=== PATIENT | female | born 1990 | race Caucasian/White ===

== ENCOUNTER 2022-11-11 17:26 | Emergency (ER) | payer BC, SELFPAY ==
[2022-11-11 17:29] VITALS: BP 138/90; PULSE 72; RESP 18; TEMP 36.3; O2SAT 100; BMI 51.7
--- NOTE | 2022-11-11 17:48 | CT_ITS ---
INDICATION: left flank pain EXAMINATION: CT ABDOMEN AND PELVIS WITHOUT CONTRAST - CT Abdomen And Pelvis W/O Contrast Injection TECHNIQUE: Helically acquired images were obtained of the abdomen and pelvis without oral or IV contrast. A radiation dose optimization technique was used for this scan. IV Contrast dosage and agent: None. Oral contrast: None. RADIATION DOSAGE (If Supplied By Facility): CTDIvol = ( 24.00 ) mGy, DLP = ( 1289.21 ) mGycm COMPARISON: None. FINDINGS: LOWER CHEST: Lung bases are clear. No cardiomegaly or pericardial effusion. There are no significant coronary vascular calcifications. LIVER: The liver has normal configuration and density given the limitation of noncontrast exam. No focal mass. GALLBLADDER AND BILIARY TREE: No calcified gallstones. No gallbladder distension or wall edema. No intra- or extrahepatic biliary ductal dilation. PANCREAS: No focal cystic or solid mass. SPLEEN: Normal size without focal cystic or solid mass. ADRENAL GLANDS: No nodules. KIDNEYS AND URETERS: Normal renal size and position. No hydronephrosis. PERITONEUM: No ascites or free air. No other fluid collection. BOWEL: Normal appendix is identified. No stomach or bowel distension. No focal inflammatory change. LYMPH NODES: No enlarged mesenteric or retroperitoneal lymph nodes. VESSELS: Aorta is non-dilated. URINARY BLADDER: Unremarkable. REPRODUCTIVE ORGANS: No pelvic masses. ABDOMINAL WALL: No discrete abdominal or pelvic wall hernia. BONES: No lytic or blastic abnormality. CT/Abdomen/Pelvis without Cont IMPRESSION: 1. No masses bowel obstruction abscess free fluid or free air. Normal appendix noted. No evidence diverticulitis. 2. No renal calcifications nor evidence of obstructive uropathy. 3. No evidence cholelithiasis. Electronically Signed: Skinny Montelongo MD at 19:28 EDT ,
--- NOTE | 2022-11-11 17:49 | EX.ED.DYSGE1 ---
HPI History of Present Illness Chief Complaint: Back Detail of Chief Complaint: Left flank pain Informant: patient Narrative Narrative: Patient presents to the emergency department complaint of left flank pain that initially started around 2 AM. Patient states she woke up around 2 AM and noted significant discomfort there. Patient denies vomiting or nausea. She has had similar pain in the past when she had a kidney stone. Pain does not wrap around the front at all. She denies injuring her back recently. She did move a week ago and she does do lifting at work. She denies any pain radiating down her legs. She denies dysuria or urgency. She has had some increase in urination but she states that she thought it might be a kidney stone so she started drinking more fluids. She denies hematuria. Patient not had any fevers. PFSH PFSH Home Medications cyclobenzaprine 10 mg tablet 10 mg PO TID PRN Muscle Spasm #20 TABLETS 11/11/22 [Rx Last Taken Unknown] hydrocodone-acetaminophen 5-325mg 5mg-325mg 1 tab PO Q4H PRN PRN Pain 2 days #10 TABLETS 11/11/22 [Rx Last Taken Unknown] naproxen 500 mg tablet 500 mg PO BID #14 tabs 11/11/22 [Rx Last Taken Unknown] Allergy/AdvReac Type Severity Reaction Status Date / Time vancomycin Allergy Hives Verified 11/11/22 17:37 azithromycin [From z pack] AdvReac Hives Verified 11/11/22 17:29 erythromycin base AdvReac Vomiting Verified 11/11/22 17:29 Social History Smoking Status: Former smoker ROS ROS ED Review of Systems ROS Unobtainable: other Constitutional Constitutional ED: Reports lethargy; Denies chills, fever(s), sweats or weight loss Eyes Eyes: Denies blurry vision, change in vision or diplopia ENT ENT ED: Denies rhinorrhea or sore throat Cardiovascular Cardiovascular: Denies chest pain, orthopnea or racing heartbeat Respiratory/Chest Respiratory/Chest: Denies cough, dyspnea, dyspnea on exertion, orthopnea or sputum Gastrointestinal Gastrointestinal: Denies abdominal pain, diarrhea, nausea or vomiting Genitourinary Genitourinary ED: Denies dysuria, hematuria or urinary frequency Musculoskeletal Musculoskeletal: Reports back pain; Denies arthralgias, myalgias or neck pain Integumentary Denies abscess, Abrasions or rash Neurologic Neurologic: Denies headache(s) or weakness Psychiatric Psychiatric: Denies anxiety, depression or suicidal thoughts Endocrine Endocrinology: Denies polydipsia, polyphagia or polyuria Hematologic/Lymphatic Hematologic/Lymphatic: Denies easy bleeding, easy bruising or lymphadenopathy Allergic/Immunologic Allergic/Immunologic ED: Denies mouth swelling, tongue swelling or urticaria EXAM Physical Exam Const Vital Signs: 11/11/22 17:29 11/11/22 19:40 Temperature 97.3 F L Temperature Source Temporal Pulse Rate 72 71 Respiratory Rate 18 17 Blood Pressure 138/90 H 145/76 H Blood Pressure Mean 106 99 Pulse Ox 100 100 Oxygen Delivery Method Room Air Room Air Positive well nourished and well developed General Appearance ED: well developed and NAD HEENT Reports TM's clear and moist mucous membranes normocephalic and atraumatic; Negative for trauma or tenderness Tympanic Membrane ED: Yes TM's clear Eyes PERRL and EOMs intact bilaterally General Eye ED: Negative for pale conjunctiva or scleral icterus Neck no lymphadenopathy, supple and no JVD General: Negative for tenderness Chest Wall inspection of chest normal and palpation of chest normal Chest: Negative for tenderness Resp normal respiratory effort and clear to auscultation bilaterally Effort and Inspection: Negative for respiratory distress or pain with movement Auscultation: Negative for rhonchi, wheezes or diminished lung sounds Cardio regular rate, regular rhythm, S1 normal heart sound, S2 normal heart sound and no murmurs Peripheral Pulses: pulses 2+ throughout GI normal to inspection, nondistended, normoactive bowel sounds, soft to palpation, non-tender, non-distended and no masses Back/Spine no CVA tenderness Back/Spine Narrative: Patient with tenderness over the left lumbar paraspinal musculature that seems to reproduce her pain. She also has CVA tenderness on the left. Negative straight leg raises. Deep tendon reflexes plus 2 out of 4 bilaterally at the patella Achilles. Patient has normal 5 extension. Extremity normal to inspection General Extremety ED: Negative for edema General Extremity: Negative for edema Neuro oriented x3, CN's II-XII intact bilaterally, no sensory deficits noted and gait normal Sensorium / Orientation: awake, alert, oriented to person, oriented to place and oriented to time Motor Exam: strength 5/5 throughout and strength abnormal Psych mental status grossly normal Skin no rashes or lesions noted and no wounds MDM MDM MDM Narrative Medical decision making narrative: Patient presents with left flank pain similar to when she had a kidney stone. In the differential would be musculoskeletal back pain versus UTI or kidney stone. IV line established on arrival. She was medicated with Toradol. CBC with differential obtained showed an elevated white count of 13.2 with hemoglobin of 13 and platelet count of 351. Chemistries were unremarkable. hCG was negative. Urinalysis was normal. CT flank obtained showed no acute disease process without evidence of urolithiasis. At this point I suspect likely musculoskeletal back pain. Patient will be given a prescription for Naprosyn and Flexeril and a few [place] for pain. Advised to follow-up with primary care physician locally within the next 3 to 5 days. Lab Data Attestation: I reviewed the patient's lab results. Labs: Laboratory Results - last 24 hr 11/11/22 11/11/22 11/11/22 17:59 17:59 17:59 WBC 13.2 H RBC 4.69 Hgb 13.0 Hct 41.5 MCV 88.5 MCH 27.7 MCHC 31.3 L RDW Std Deviation 42.6 RDW Coeff of Lilian 13.2 Plt Count 351 MPV 9.2 Immature Gran % (Auto) 1.400 H Neut % (Auto) 63.3 Lymph % (Auto) 28.5 [place] % (Auto) 5.0 Eos % (Auto) 1.1 Baso % (Auto) 0.7 Absolute Neuts (auto) 8.3 H Absolute Lymphs (auto) 3.76 Nucleated RBC % 0 Sodium 139 Potassium 3.7 Chloride 104 Carbon Dioxide 27.0 Anion Gap 8 BUN 10 Creatinine 0.75 Estim Creat Clear Calc 85.17 Est GFR (MDRD) Af Amer 114 Est GFR (MDRD) Non-Af 94 BUN/Creatinine Ratio 13.3 Glucose 83 Calcium 8.9 Serum , Qual NEGATIVE Urine Color Urine Clarity Urine pH Ur Specific [place] Urine Protein Urine Glucose (UA) Urine Ketones Urine Occult Blood Urine Nitrite Urine Bilirubin Urine Urobilinogen Ur Leukocyte Esterase Urine RBC Urine WBC Ur Squamous Epith Cells Ur Transition Epith Cell Urine Bacteria Urine Mucus 11/11/22 19:06 WBC RBC Hgb Hct MCV MCH MCHC RDW Std Deviation RDW Coeff of Lilian Plt Count MPV Immature Gran % (Auto) Neut % (Auto) Lymph % (Auto) [place] % (Auto) Eos % (Auto) Baso % (Auto) Absolute Neuts (auto) Absolute Lymphs (auto) Nucleated RBC % Sodium Potassium Chloride Carbon Dioxide Anion Gap BUN Creatinine Estim Creat Clear Calc Est GFR (MDRD) Af Amer Est GFR (MDRD) Non-Af BUN/Creatinine Ratio Glucose Calcium Serum , Qual Urine Color Yellow Urine Clarity Clear Urine pH 7.0 Ur Specific [place] 1.010 Urine Protein Negative Urine Glucose (UA) Normal Urine Ketones 15 H Urine Occult Blood Negative Urine Nitrite Negative Urine Bilirubin Negative Urine Urobilinogen Normal Ur Leukocyte Esterase 100 H Urine RBC 0 SEEN Urine WBC 0-5 SEEN Ur Squamous Epith Cells 0-5 SEEN Ur Transition Epith Cell 0 SEEN Urine Bacteria 0 SEEN Urine Mucus 0 SEEN Radiography Diagnostic Testing: Clinical Impression(s) from Imaging Studies Abdomen/Pelvis CT 11/11/22 17:48 IMPRESSION: 1. No masses bowel obstruction abscess free fluid or free air. Normal appendix noted. No evidence diverticulitis. 2. No renal calcifications nor evidence of obstructive uropathy. 3. No evidence cholelithiasis. Electronically Signed: Skinny Montelongo MD at 19:28 EDT , Discharge Plan Triage Chief Complaint: Back ED Provider: Bong Jonas Dx/Rx/DC Orders Clinical Impression: Back pain Instructions: ED Back Pain (Acute or Chronic) Prescriptions: New cyclobenzaprine [cyclobenzaprine] 10 mg tablet 10 mg PO TID PRN (Reason: Muscle Spasm) Qty: 20 0RF hydrocodone-acetaminophen [hydrocodone-acetaminophen] 5-325 mg tablet 1 tab PO Q4H PRN PRN (Reason: Pain) 2 Days Qty: 10 0RF naproxen 500 mg tablet 500 mg PO BID Qty: 14 0RF Primary Care Provider: TENISHA KHAN Referrals: TENISHA KHAN [Other] Dani Pascual DO [Med Staff - Clarification Operator] - 3-5 Days Disposition Disposition: Home, Self Care
[2022-11-11] MEDS: 0.9% Normal Saline 1,000 ML 150 ML IV (18:03)
[2022-11-11] MEDS: Ketorolac 30 MG/ML Syringe IV (18:03)
[2022-11-11 18:08] LABS: Absolute Lymphocyte Count 3.76 X10^3/uL (0.83-4.51); Absolute Neutrophil Count 8.3 X10^3/uL (2.0-7.7); Basophil# 0.09 X10^3/uL; Basophil% 0.7 % (0-1); Eosinophil# 0.15 X10^3/uL; Eosinophils% 1.1 % (0-5); Hematocrit 41.5 % (37-47); Lymphocyte # 3.76 X10^3/ul (0.83-4.51); Lymphocyte % 28.5 % (19-41); Mean Corp Hgb Conc 31.3 g/dL (32-36); Mean Corpuscular Hgb 27.7 pg (27.0-32.0); Mean Corpuscular Volume 88.5 fL (81-99); Mean Platelet Vol. 9.2 fl (6.2-12.0); Monocyte# 0.66 X10^3/uL; NRBC Flagged by Analyzer 0 % (0-5); Neutrophil # 8.34 X10^3/uL (2.7-7.7); Neutrophil % 63.3 % (47-70); Platelet Count 351 K/mm3 (150-450); RBC Distribution Width CV 13.2 % (11.6-14.6); RBC Distribution Width SD 42.6 fl (35.1-43.9); Red Blood Count 4.69 M/mm3 (4.2-5.4); White Blood Count 13.2 K/mm3 (4.4-11.0)
[2022-11-11 18:23] LABS: Internal QC Validated? YES +Cl - CLEAR BKGD; Pregnancy, Serum, hCG Quali. NEGATIVE Negative
[2022-11-11 18:25] LABS: Anion Gap 8 (5-15); BUN 10 mg/dL (7-18); BUN/Creat Ratio 13.3 RATIO (10-20); Calcium,Total 8.9 mg/dL (8.5-10.1); Chloride 104 mmol/L (98-107); Creatinine, Serum 0.75 mg/dL (0.55-1.02); EST Glomerular Filtration Rate 94 mL/min (>60); Est Glom Filt Rate - Afr Amer 114 mL/min (>60); Estimated Creatinine Clearance 85.17 ml/min; Glucose 83 mg/dL (74-106); Potassium 3.7 mmol/L (3.5-5.1); Sodium Level 139 mmol/L (136-145)
[2022-11-11 19:10] LABS: Bacteria 0 SEEN /hpf (None Seen); Mucous, Urine 0 SEEN /hpf (<or=2+); Red Blood Cells-Urine 0 SEEN /hpf (0-5)
[2022-11-11 19:12] LABS: Color, Urine Yellow (Yellow); Glucose, Dipstick Normal (Normal); Ketone-Dipstick 15 mg/dl (Negative); Leukocyte Esterase-Dipstick 100 /ul (Negative); Nitrite-Dipstick Negative (Negative); Occult Blood-Urine Negative /ul (Negative); Protein-Dipstick Negative (Negative); Urine Bilirubin Dipstick Negative (Negative); Urine Clarity Clear (Clear); Urine Urobilinogen Normal (Normal)
[2022-11-11 19:27] LABS: Squamous Epithelial Cells - UA 0-5 SEEN /hpf (5-10); Transitional Epithelial - Ur 0 SEEN /hpf (0-5); White Blood Cells 0-5 SEEN /hpf (0-5)
[2022-11-11 19:40] VITALS: BP 145/76; PULSE 71; RESP 17; O2SAT 100
[2022-11-11 20:15] VITALS: PULSE 68; RESP 18; O2SAT 100
== END 2022-11-11 20:54 | disposition home or self-care (01) ==
PROVIDERS: Emergency Provider Emergency Medicine; Visit Provider Emergency Medicine
DX: M54.9 Dorsalgia, unspecified (principal); R10.9 Unspecified abdominal pain; Z87.891 Personal history of nicotine dependence
CPT/HCPCS: 74176; 80048; 81001; 84703; 85025; 96361; 96374; 99282; J7030; A4216

== ENCOUNTER → 2023-10-21 | Outpatient (CLI) | payer BC, SELFPAY ==
[2023-10-21 09:34] LABS: Hematocrit 37.3 % (37-47); Hemoglobin 12.2 g/dL (12.0-15.0); Mean Corp Hgb Conc 32.7 g/dL (32-36); Mean Corpuscular Hgb 28.4 pg (27.0-32.0); Mean Corpuscular Volume 86.7 fL (81-99); Mean Platelet Vol. 9.2 fl (6.2-12.0); Platelet Count 349 K/mm3 (150-450); RBC Distribution Width CV 12.6 % (11.6-14.6); RBC Distribution Width SD 39.7 fl (35.1-43.9); White Blood Count 9.2 K/mm3 (4.4-11.0)
[2023-10-21 09:52] LABS: Hemoglobin A1c 5.1 % (3.8-5.6)
[2023-10-21 10:06] LABS: ALB/GLOB Ratio 0.8 RATIO (0.9-2.4); AST(SGOT) 17 U/L (15-37); Alanine Aminotransfer ALT/SGPT 26 U/L (13-56); Albumin, Serum 3.2 g/dL (3.2-5.0); Alkaline Phosphatase 70 U/L (45-117); Anion Gap 3 (5-15); BUN 9 mg/dL (7-18); BUN/Creat Ratio 15.3 RATIO (10-20); Calcium,Total 8.5 mg/dL (8.5-10.1); Chloride 108 mmol/L (98-107); Cholesterol 177 mg/dL (200); Creatinine, Serum 0.59 mg/dL (0.55-1.02); EST Glomerular Filtration Rate 125 mL/min (>60); Est Glom Filt Rate - Afr Amer 151 mL/min (>60); Globulin 3.8 g/dL (2.2-4.2); Glucose 110 mg/dL (74-106); High Density Lipoprotein 39 mg/dL; Potassium 3.9 mmol/L (3.5-5.1); Sodium Level 137 mmol/L (136-145); Triglycerides 64 mg/dL; Very Low Density Lipoprotein 13 mg/dL (5-40)
== END | disposition home or self-care (01) ==
LOC: LAB 08:58
DX: R53.83 Other fatigue (principal); Z79.899 Other long term (current) drug therapy
CPT/HCPCS: 36415; 80053; 80061; 83036; 84443; 85027

== ENCOUNTER 2024-04-03 09:09 | Emergency (ER) | payer BC, SELFPAY ==
[2024-04-03 09:11] VITALS: BP 134/78; PULSE 64; RESP 18; TEMP 36.6; O2SAT 97; BMI 46.3
[2024-04-03 09:43] LABS: Absolute Lymphocyte Count 2.33 X10^3/uL (0.83-4.51); Absolute Neutrophil Count 7.2 X10^3/uL (2.0-7.7); Basophil# 0.07 X10^3/uL; Basophil% 0.7 % (0-1); Eosinophil# 0.21 X10^3/uL; Hematocrit 41.1 % (37-47); Hemoglobin 13.7 g/dL (12.0-15.0); Lymphocyte # 2.33 X10^3/ul (0.83-4.51); Lymphocyte % 22.3 % (19-41); Mean Corp Hgb Conc 33.3 g/dL (32-36); Mean Corpuscular Hgb 29.2 pg (27.0-32.0); Mean Corpuscular Volume 87.6 fL (81-99); Mean Platelet Vol. 9.1 fl (6.2-12.0); Monocyte# 0.59 X10^3/uL; Monocyte% 5.7 % (0-10); NRBC Flagged by Analyzer 0 % (0-5); Neutrophil % 68.9 % (47-70); Platelet Count 373 K/mm3 (150-450); RBC Distribution Width CV 12.2 % (11.6-14.6); Red Blood Count 4.69 M/mm3 (4.2-5.4); White Blood Count 10.4 K/mm3 (4.4-11.0)
[2024-04-03 09:44] VITALS: BP 120/77; PULSE 82; RESP 24; TEMP 36.3; O2SAT 96
--- NOTE | 2024-04-03 09:51 | EDS_ITS ---
HPI HPI - Psych History of Present Illness Chief Complaint: Suicidal Informant: patient Onset/Context/Timing Onset: Days Context: Gradual Onset Timing: Continuous Current Severity: Moderate Maximum Severity: Moderate Associated Symptoms Associated Symptoms - Psych: Positive for Depressed and Suicidal Thoughts Specific plan (suicidal thought): Considering overdosing. Narrative Narrative: 33-year-old female history of bipolar disorder. States she has been more depressed the last 4 days. She had a prior history of cutting herself. She has not been doing that recently. She states she is having thoughts of overdosing on her medications and killing yourself. She has never attempted this before. She was hospitalized for her psychiatric illness 2 years ago. Prior similar symptoms: Yes Recent Illness/Hospitalization: No PFSH PFSH Medical History Anxiety Bipolar 1 disorder Depression Chronic headaches Home Medications ?Medication ?Instructions ?Recorded ?Last Taken ?Type clonazepam 1 mg tablet mg PO 05/04/23 Unknown History oxcarbazepine 600 mg tablet mg PO 05/04/23 Unknown History trazodone 100 mg tablet mg PO 05/04/23 Unknown History venlafaxine 75 mg capsule,extended mg PO 05/04/23 Unknown History release 24 hr ondansetron HCl 8 mg tablet 8 mg PO Q8H PRN nausea and 06/30/23 Unknown Rx vomiting #14 tabs benzonatate 200 mg capsule 200 mg PO TID PRN cough #14 caps 09/05/23 Unknown Rx methylprednisolone 4 mg tablets in See Rx Instructions PO PER PKG DIR 09/05/23 Unknown Rx a dose pack (Medrol (Lizandro)) #21 tabs Allergy/AdvReac Type Severity Reaction Status Date / Time vancomycin Allergy Hives Verified 04/03/24 09:11 azithromycin (From z pack) AdvReac Hives Verified 04/03/24 09:11 erythromycin base AdvReac Vomiting Verified 04/03/24 09:11 Family History Other Cancer Diabetes Heart disease Surgical History History of carpal tunnel release Social History Smoking Status: Former smoker ROS ROS ED ROS Narrative Denies recent illness. Constitutional Constitutional ED: Denies fever(s) Eyes Eyes: Denies blurry vision ENT ENT ED: Denies ear pain Cardiovascular Cardiovascular: Denies chest pain Respiratory/Chest Respiratory/Chest: Denies cough Gastrointestinal Gastrointestinal: Denies abdominal pain Genitourinary Genitourinary ED: Denies dysuria Musculoskeletal Musculoskeletal: Denies arthralgias Integumentary Denies abscess Neurologic Neurologic: Denies headache(s) Psychiatric Psychiatric: Reports anxiety, depression, suicidal ideation and suicidal thoughts Endocrine Endocrinology: Denies polydipsia Hematologic/Lymphatic Hematologic/Lymphatic: Denies easy bleeding Allergic/Immunologic Allergic/Immunologic ED: Denies mouth swelling EXAM Physical Exam Narrative Exam Narrative: 33-year-old female sitting upright in bed. Vital signs are stable afebrile. H EENT exam unremarkable. Pupils round react light extra motions are intact. No trauma to her face or head. Neck nontender no trauma. Lungs clear to auscultation bilaterally. Heart regular rhythm rate about 80 no murmur. Chest wall ribs nontender. Abdomen soft nontender. Moving all 4 extremities. Nontender. No deformity. Currently no acute lacerations. No track fonseca. Normal server administrator strength. Normal dorsi plantarflexion. Back nontender. Neurologically she is awake and alert. No focal motor deficits. She does make eye contact. She does answer questions and follow commands. No obvious signs of acute toxidrome. No smell of alcohol. Const Vital Signs: 04/03/24 09:11 04/03/24 09:44 Temperature 97.8 F 97.3 F L Temperature Source Temporal Temporal Pulse Rate 64 82 Respiratory Rate 18 24 H Blood Pressure 134/78 H 120/77 Blood Pressure Mean 96 91 Pulse Ox 97 96 Oxygen Delivery Method Room Air Room Air Positive well nourished and well developed; Negative for cachectic, contractures or unkempt General Appearance ED: well developed and NAD; Negative for unkempt, cachectic, contractures or pallor Nutritional Appearance: Negative for cachectic HEENT Reports moist mucous membranes normocephalic and atraumatic; Negative for trauma or tenderness Eyes PERRL and EOMs intact bilaterally Neck no lymphadenopathy, supple and no JVD Resp normal respiratory effort and clear to auscultation bilaterally Cardio S1 normal heart sound, S2 normal heart sound and no murmurs Rate: regular rate Rhythm: regular rhythm GI non-tender, non-distended and no masses Auscultation: normoactive bowel sounds Palpation: soft; Negative for tender or guarding Back/Spine no CVA tenderness Extremity normal to inspection General Extremety ED: Negative for edema or tenderness General Extremity: Negative for edema Neuro oriented x3 and CN's II-XII intact bilaterally Sensorium / Orientation: alert, oriented to person, oriented to place and oriented to time; Negative for orientation impaired Motor Exam: strength 5/5 throughout Psych mental status grossly normal, thought process normal, cooperative, speech no rmal, activity/motor behavior normal and denies hallucinations; Negative for denies suicidal ideation Psych Narrative: Depressed and suicidal. Appearance: grossly normal, appropriate and well kempt; Negative for unkempt Attitude: calm and engaged Activity / Motor Behavior: appropriate eye contact Speech: normal speech Mood & Affect: depressed Thought Process: normal thought process Thought Content: suicidality Attention / Concentration: attention grossly intact Memory / Cognition: memory grossly intact Insight: insight good Judgement: judgement good Skin General Skin Exam: Negative for jaundice or pallor Rashes: no rashes Trauma: Negative for abrasion or laceration MDM MDM MDM Narrative Medical decision making narrative: 30-year-old female history of bipolar disorder 4-day history of being more depressed and suicidal. Plan to overdose on her medications. Exam benign. She will go through ED mental health evaluation. Screening labs. Should be evaluated by the counseling center. Counseling center and I will come up with a plan once they have evaluated the patient. Repeat exam at 10:38 AM unchanged. Awaiting crisis evaluation. Repeat exam patient is doing well at 2:07 PM. I did discuss with the poultry dressing worker. They are comfortable as about the patient being discharged home with outpatient follow-up. Patient is doing well and is comfortable that plan also. History & Record Review Discussion w/independent historian: Patient Additional record(s) reviewed:: Prior inpatient record, Prior outpatient record and Prior ED visit Lab Data Attestation: I reviewed the patient's lab results. Lab results narrative: CBC normal. White count of 10. H&H 13 and 41. BMP unremarkable. Glucose 118. Serum test negative. Alcohol negative. Urine tox positive for ecstasy, benzos and cannabis. Labs: Laboratory Results - last 24 hr 04/03/24 04/03/24 09:34 09:40 WBC 10.4 RBC 4.69 Hgb 13.7 Hct 41.1 MCV 87.6 MCH 29.2 MCHC 33.3 RDW Std Deviation 39.0 RDW Coeff of Lilian 12.2 Plt Count 373 MPV 9.1 Immature Gran % (Auto) 0.400 Neut % (Auto) 68.9 Lymph % (Auto) 22.3 [place] % (Auto) 5.7 Eos % (Auto) 2.0 Baso % (Auto) 0.7 Absolute Neuts (auto) 7.2 Absolute Lymphs (auto) 2.33 Nucleated RBC % 0 Sodium 138 Potassium 3.9 Chloride 105 Carbon Dioxide 26.0 Anion Gap 7 BUN 13 Creatinine 0.86 Estim Creat Clear Calc 115.79 Est GFR (MDRD) Af Amer 98 Est GFR (MDRD) Non-Af 81 BUN/Creatinine Ratio 15.2 Glucose 118 H Calcium 9.4 Serum , Qual NEGATIVE Urine Opiates Screen NEGATIVE Urine Methadone Screen NEGATIVE Ur Barbiturates Screen NEGATIVE Ur Phencyclidine Scrn NEGATIVE Ur Amphetamines Screen NEGATIVE MDMA (Ecstasy) Screen POSITIVE H U Benzodiazepines Scrn POSITIVE H Urine Cocaine Screen NEGATIVE U Cannabinoids Screen POSITIVE H Ur Drug Screen Comment Ethyl Alcohol < 3.0 Discharge Plan Triage Chief Complaint: Suicidal ED Provider: Chidi Rankin Dx/Rx/DC Orders Clinical Impression: Depression, Bipolar 1 disorder, Suicidal ideation, Marijuana use Instructions: ED Depression Prescriptions: No Action oxcarbazepine 600 mg tablet PO Patient Comments: TAKE 1 TABLET BY MOUTH 2 TIMES A DAY clonazepam 1 mg tablet PO Patient Comments: TAKE 1 TABLET BY MOUTH 2 TIMES A DAY NEEDED for panic attacks venlafaxine 75 mg capsule,extended release 24hr PO Patient Comments: TAKE 1 CAPSULE BY MOUTH EVERY DAY WITH FOOD trazodone 100 mg tablet PO Patient Comments: TAKE 1 TABLET BY MOUTH AT BEDTIME NEEDED for insomnia ondansetron HCl 8 mg tablet 8 mg PO Q8H PRN (Reason: nausea and vomiting) Qty: 14 0RF methylprednisolone [Medrol (Lizandro)] 4 mg tablets,dose pack See Rx Instructions PO PER PKG DIR Qty: 21 0RF Rx Instructions: PO PER PKG DIR benzonatate 200 mg capsule 200 mg PO TID PRN (Reason: cough) Qty: 14 0RF Primary Care Provider: BRADLY CANTU Referrals: BRADLY CANTU [Other] Activity Restrictions/Additional Instructions: Follow-up with your mental health team as soon as possible. Return if feeling worse or for like you would harm yourself or anyone else. Print Language: [place] Disposition Disposition: Home, Self Care
[2024-04-03 09:57] LABS: Alcohol, Blood (Medical)-Serum < 3.0 mg/dL; Anion Gap 7 (5-15); BUN 13 mg/dL (7-18); BUN/Creat Ratio 15.2 RATIO (10-20); Calcium,Total 9.4 mg/dL (8.5-10.1); Chloride 105 mmol/L (98-107); Creatinine, Serum 0.86 mg/dL (0.55-1.02); EST Glomerular Filtration Rate 81 mL/min (>60); Est Glom Filt Rate - Afr Amer 98 mL/min (>60); Estimated Creatinine Clearance 115.79 ml/min; Glucose 118 mg/dL (74-106); Potassium 3.9 mmol/L (3.5-5.1); Sodium Level 138 mmol/L (136-145)
[2024-04-03 10:02] LABS: Internal QC Validated? YES +Cl - CLEAR BKGD; Pregnancy, Serum, hCG Quali. NEGATIVE Negative
[2024-04-03 10:03] LABS: Record Kit Lot#, Serum Preg. 869294
[2024-04-03 10:07] LABS: Amphetamine Urine VISTA NEGATIVE (<1000 ng/mL); Barbiturate Urine VISTA NEGATIVE (< 200 ng/mL); Benzodiazepine Urine VISTA POSITIVE (< 200 ng/mL); Cocaine Urine VISTA NEGATIVE (< 300 ng/mL); Ecstacy Urine VISTA POSITIVE (< 500 ng/mL); Methadone Urine VISTA NEGATIVE (< 300 ng/mL); PCP Urine VISTA NEGATIVE (< 25 ng/mL); THC Urine VISTA POSITIVE (< 50 ng/mL); Vista UDS pH Range 5
--- NOTE | 2024-04-03 10:28 | NURSING ---
[facility]IS[facility] WAS CONTACTED FOR EVALUATION
--- OUTSIDE RECORDS SUMMARY | 2024-04-03 14:24 | XMS RPT_ITS | CCD ---
Author Organization [facility] Care Team Providers Care [employer] Name Role Phone ESCOLAS, TENISHA W Unavailable Unavailable ESCOLAS, TENISHA W Unavailable Unavailable WANDA DOOLEY Unavailable Unavailable ESCOLAS, TENISHA W Unavailable Unavailable ESCOLAS, TENISHA W Unavailable Unavailable YAO, HARKEET Unavailable Unavailable ESCOLAS, TENISHA Unavailable Unavailable YAO, HARKEET Unavailable Unavailable ESCOLAS, TENISHA Unavailable Unavailable YAO, HARKEET Unavailable Unavailable ESCOLAS, TENISHA Unavailable Unavailable NO FAMILY PHYSICIAN Primary Care Unavailable Dayday Adams Admitting Unavailable Dayday Adams Attending Unavailable Figueroa Martinez Unavailable Unavailable Crescencio Valerio Unavailable Unavailable Escolas, Tenisha W Unavailable Unavailable None, No PCP Unavailable Unavailable Escolas, Tenisha W Unavailable Unavailable Unavailable Escolas, Tenisha Unavailable Geovanna Childs Unavailable Jill preston Unavailable Unavailable Stephanie, Dr. Tenisha Stevenson Primary Care Unavailable GEOVANNA CHILDS Attending Unavailab kary Jo, Dr. Torres Attending Unavailable Escolas, Dr. Tenisha Stevenson Primary Care Unavailable Ohliger III, Dr. Thee Shaffer Attending Un available Escolas, Dr. Tenisha Stevenson Primary Care Unavailable Escolas, Dr. Tenisha Stevenson Attending Unavailable Escolas, Dr. Tenisha Stevenson Primary Care Unavailable [facility], Dr. YULIA LUGO Attending Unavailab le Escolajustus, Dr. Tenisha Stevenson Primary Care Unavailable Unavailable Unavailable Anay Cantu DO Primary Care Provider Michelle, Dr. Figueroa Garner Attending Unav ailable Michelle, Dr. Figueroa Garner Referring Unav ailable Stephanie, Dr. Tenisha Stevenson Primary Care Unavailable Escolas, Dr. Tenisha Stevenson Attending Unavailable Escolajustus, Dr. Tenisha Stevenson Referring Unavailable Escolajustus, Dr. Tenisha Stevenson Primary Care Unavailable Jigar, Ms. Milton Attending Unavailable Rachelolajustus, Dr. Tenisha Stevenson Primary Care Unavailable Dino Hsieh MD Unavailable MESKO, ANAY L Referring Unavailable MESKO, ANAY L Primary Care Unavailable OPAL ANGLIN Referring Unavaila ble MESKO, ANAY L Primary Care Unavailable Mesko DO, Anay L Primary Care Provider EDMUND GIBBS Attending Unavailable MESKO, ANAY L Primary Care Unavailable LYNNETTE ZUNIGA Attending Unavailable MESKO, ANAY L Primary Care Unavailable MESKO, ANAY L Primary Care Unavailable MESKO, ANAY L Primary Care Unavailable MESKO, ANAY L Primary Care Unavailable LYNNETTE ZUNIGA Attending Unavailable MESKO, ANAY L Primary Care Unavailable SHUBHAM WAGNER Attending Unavailable MESKO, ANAY L Primary Care Unavailable MESKO, ANAY L Referring Unavailable MESKO, ANAY L Primary Care Unavailable OPAL ANGLIN Attending Unavaila ble MESKO, ANAY L Referring Unavailable MESKO, ANAY L Primary Care Unavailable MESKO, ANAY L Primary Care Unavailable MESKO, ANAY L Attending Unavailable MESKO, ANAY L Primary Care Unavailable YOLIE, LUCIA L Attending Unavailable MESKO, ANAY L Primary Care Unavailable MESKO, ANAY L Attending Unavailable MESKO, ANAY L Primary Care Unavailable DINO HSIEH Attending Unavailable MESKO, ANAY L Referring Unavailable MESKO, ANAY L Primary Care Unavailable CLEMENTINA, CRYSTAL L Attending Unavailable MESKO, ANAY L Primary Care Unavailable LYNNETTE ZUNIGA Attending Unavailable MESKO, ANAY L Referring Unavailable MESKO, ANAY L Primary Care Unavailable MALA TORRES Attending Unavailable MESKO, ANAY L Referring Unavailable MESKO, ANAY L Primary Care Unavailable GIAN CONNELL Attending Unavailable MESKO, ANAY L Primary Care Unavailable TANA MARQUES Attending Unavailable MESKO, ANAY L Primary Care Unavailable MESKO, ANAY L Attending Unavailable MESKO, ANAY L Primary Care Unavailable MESKO, ANAY L Attending Unavailable ANAY CANTU Primary Care Unavailable YOLIELUCIA Zamora Tony Attending Unavailable ANAY CANTU Primary Care Unavailable Allergies Allergy Classification Reported Allergen(s) Allergy Type Date of Onset Reaction(s) Facility Glycopeptides (antibiotic) (2 sources) Vancomycin; Translations: [vancomycin] Drug Allergy [facility] Work Phone: Macrolides (antibiotic) (2 sources) Erythromycin; Translations: [erythromycin] Drug Allergy [facility] Work Phone: NSAIDs (2 sources) Ketorolac; Translations: [Toradol] Drug Allergy [facility] Work Phone: (1 source) Azithromycin Drug Allergy 8 [facility] Repository (1 source) Erythromycin Drug Allergy 8 [facility] Repository (7 sources) Vancomycin; Translations: [VANCOMYCIN] Drug Allergy 2 [facility] Repository (20 sources) Erythromycin; Translations: [erythromycin] Drug Allergy 2 Nausea/vomiting , GI Upset [facility] Work Phone: (19 sources) Ketorolac; Translations: [Toradol] Drug Allergy [facility] Work Phone: (20 sources) Erythromycin Derivatives; Translations: [Erythromycin Derivatives] Allergy to drug (finding) [facility] Work Phone: (20 sources) Vancomycin; Translations: [vancomycin] Drug Allergy 2 Hives, Itching [facility] Work Phone: (3 sources) traMADol; Translations: [tramadol] Drug Allergy [facility] Work Phone: (17 sources) Ketorolac; Translations: [KETOROLAC] Drug Allergy 3 [facility] Work Phone: (18 sources) Sulfacetamide; Translations: [SULFACETAMIDE] Drug Allergy 2 Itching [facility] (16 sources) Yogurt; Translations: [YOGURT] Propensity to adverse reactions 3 Swelling [facility] (15 sources) zolpidem; Translations: [ZOLPIDEM] Drug Allergy 3 Other [facility] Work Phone: (1 source) Erythromycin Drug Allergy [facility] Repository Medications Current Medications Medication Drug Class(es) Dates Sig (Normalized) Sig (Original) amoxicillin 875 mg oral tablet (3 sources) Penicillin-class Antibacterial Start: 10-05-2023 End: 10-15-2023 take 1 tablet by mouth twice daily amoxicillin (Amoxil) 875 mg tablet Indications: Otitis, left Take 1 tablet (875 mg) by mouth 2 times a day for 10 days. 20 tablet 10/05/2023 10/15/2023 Active Start: 11-21-2020 take 1 tablet by ayaz th every eight hours Amoxicillin 500 MG Oral Tablet TAKE 1 TABLET Every 8 hours Quantity: 21 Refills: 0 Ordered: 21-Nov-2020 Yann Pickering Start : 21-Nov-2020 Active 24 hr amphetamine aspartate 5 mg / amphetamine sulfate 5 mg / dextroamphetamine saccharate 5 mg / dextroamphetamine sulfate 5 mg extended release oral capsule (1 source) Central Nervous System Stimulant Start: 11-09-2023 take 1 capsule by mouth once daily in the morning amphetamine-dextroamphetamine XR (Adderall XR) 20 mg 24 hr capsule Take 1 capsule (20 mg) by mouth once daily in the morning. 11/09/2023 Active brompheniramine maleate 0.4 mg/ml / dextromethorphan hydrobromide 2 mg/ml / pseudoephedrine hydrochloride 6 mg/ml oral solution (2 sources) alpha-Adrenerg ic Agonist, Uncompetitive J-nrvteg-I-asp artate Receptor Antagonist, Sigma-1 Agonist Start: 11-21-2020 End: 11-28-2020 take 10 mL by mouth every six hours as needed for cough and congestion Ewusghrfb-Vjznbmoq-IO 30-2-10 MG/5ML Oral Syrup TAKE 10 ML Every 6 hours PRN ONLY IF WITH COUGH AND/OR NASAL CONGESTION MDD:40 mL Quantity: 280 Refills: 0 Ordered: 21-Nov-2020 Yann Pickering Start : 21-Nov-2020 End : 28-Nov-2020 Active Do not take medication if systolic BP is higher than 130 and/or diastolic BP is higher than 80. busPIRone hydrochloride 7.5 mg oral tablet (1 source) Start: 11-08-2023 take 1 tablet by mouth every twelve hours busPIRone (Buspar) 7.5 mg tablet Take 1 tablet (7.5 mg) by mouth every 12 hours. 11/08/2023 Active cyclobenzaprine hydrochloride 5 mg oral tablet (4 sources) Muscle Relaxant Start: 03-31-2023 End: 04-30-2023 take 1 tablet by mouth once daily as needed for muscle spasms cyclobenzaprine (Flexeril) 5 mg tablet Indications: Back pain, unspecified back location, unspecified back pain laterality, unspecified chronicity , Muscle spasm Take 1 tablet (5 mg) by mouth once daily as needed for muscle spasms. Do not drive while taking medication 30 tablet 0 03/31/2023 04/30/2023 Active Start: 03-16-2023 End: 03-31-2023 take 1 tablet by mouth three times daily as needed for muscle spasms cyclobenzaprine (Flexeril) 5 mg tablet Indications: Back pain, unspecified back location, unspecified back pain laterality, unspecified chronicity , Muscle spasm Take 1 tablet (5 mg) by mouth 3 times a day as needed for muscle spasms. Do not drive while taking medication 21 tablet 0 03/16/2023 03/31/2023 Discontinued (Med List Cleanup) Start: 02-07-2020 take 1 tablet by ayaz three times daily as needed Cyclobenzaprine HCl - 10 MG Oral Tablet TAKE 1 TABLET 3 TIMES DAILY NEEDED. Quantity: 30 Refills: 1 Figueroa Martinez MD Start : 07-Feb-2020 Active ferrous sulfate 325 mg delayed release oral tablet (5 sources) Start: 06-07-2023 End: 12-04-2023 take 1 tablet by mouth once daily at bedtime ferrous sulfate 325 (65 Fe) MG EC tablet Indications: iron deficiency anemia Take 1 tablet by mouth once daily at bedtime. Do not crush, chew, or split. Take with vitamin C (tablets, Geary juice, citrus fruit, etc) 90 tablet 1 06/07/2023 12/04/2023 Active lurasidone hydrochloride 40 mg oral tablet (1 source) Atypical Antipsychotic take 1 tablet by mouth once daily Latuda 40 mg oral tablet ; 1 tab(s) orally once a day Quantity: 0 Refills: 0 Ordered: 28-Mar-2019 Juanita Berger Status: Discontinued Generic Substitution Allowed meclizine hydrochloride 25 mg oral tablet (7 sources) Antiemetic Start: 10-05-2023 End: 10-10-2023 take 1 tablet by mouth three times daily as needed for dizziness meclizine (Antivert) 25 mg tablet Indications: Vertigo Take 1 tablet (25 mg) by mouth 3 times a day as needed for dizziness for up to 5 days. 15 tablet 10/05/2023 10/10/2023 Active Start: 07-14-2022 take 1 tablet by ayaz th three times daily as needed Meclizine HCl - 25 MG Oral Tablet TAKE 1 TABLET 3 TIMES DAILY NEEDED. Quantity: 90 Refills: 1 Ordered: 14-Jul-2022 Tenisha Brown DO Start : 14-Jul-2022 Active Start: 06-18-2021 take 1 tablet by ayaz th three times daily as needed Meclizine HCl - 25 MG Oral Tablet TAKE 1 TABLET 3 TIMES DAILY NEEDED. Quantity: 90 Refills: 2 Ordered: 18-Jun-2021 Tenisha Brown DO Start : 18-Jun-2021 Active methocarbamol 500 mg oral tablet (5 sources) Muscle Relaxant Start: 11-16-2023 End: 11-26-2023 take 1 tablet by mouth twice daily as needed for muscle spasms methocarbamol (Robaxin) 500 mg tablet Indications: Muscle spasm Take 1 tablet (500 mg) by mouth 2 times a day as needed for muscle spasms for up to 10 days. 20 tablet 11/16/2023 11/26/2023 Active Start: 12-16-2021 take 1 tablet by ayaz th at bedtime Methocarbamol 500 MG Oral Tablet TAKE 1 TABLET Bedtime Quantity: 30 Refills: 1 Ordered: 16-Dec-2021 Tenisha Brown DO Start : 16-Dec-2021 Active omeprazole 40 mg delayed release oral capsule (11 sources) Proton Pump Inhibitor Start: 05-13-2023 End: 05-12-2024 take 1 capsule by mouth once daily omeprazole (PriLOSEC) [address] capsule Indications: Dysphagia, unspecified type , Heartburn Take 1 capsule (40 mg) by mouth once daily. Do not crush or chew. 30 capsule 11 05/13/2023 11/16/2023 Discontinued (Med List Cleanup) Start: 05-13-2023 End: 05-12-2024 take 1 capsule by mouth every twenty-four hours omeprazole (PRILOSEC) 40 mg capsule Take 40 mg by mouth every 24 hours. 0 05/13/2023 05/12/2024 Active Comment on above: Take 40 mg by mouth every 24 hours. ondansetron 4 mg oral tablet (3 sources) Serotonin-3 Receptor Antagonist Start: 2 End: 2 take 1 tablet by mouth every six hours Zofran 4 mg oral tablet ; 1 tab(s) orally every 6 hours x 3 days Quantity: 12 Refills: 0 Ordered: 23-Jul-2021 Geovanna Childs Start: 23-Jul-2021 End: 25-Jul-2021 Generic Substitution Allowed Start: 11-21-2020 take 1 tablet by ayaz th every eight hours as needed Ondansetron 8 MG Oral Tablet Disintegrating DISSOLVE 1 TABLET IN MOUTH EVERY 8 HOURS NEEDED Quantity: 15 Refills: 0 Ordered: 21-Nov-2020 Yann Pickering Start : 21-Nov-2020 Active OXcarbazepine 600 mg oral tablet (20 sources) Anti-epileptic Agent Start: 11-08-2023 take 1 tablet by mouth every twelve hours OXcarbazepine (Trileptal) 600 mg tablet Take 1 tablet (600 mg) by mouth every 12 hours. 11/08/2023 Active Start: 01-28-2023 End: 11-16-2023 take 1 tablet by mouth twice daily OXcarbazepine (Trileptal) 300 mg tablet Take 1 tablet (300 mg) by mouth 2 times a day. 10/04/2023 11/16/2023 Discontinued (Med List Cleanup) Start: 03-31-2019 End: 04-29-2019 take 1 tablet by mouth twice daily OXcarbazepine 300 mg oral tablet ; 1 tab(s) orally 2 times a day Quantity: 60 Refills: 0 Ordered: 31-Mar-2019 yMa Hutchins Start: 31-Mar-2019 End: 29-Apr-2019 Dispense As Written take 1 tablet by ayaz th twice daily Trileptal 150 MG Oral Tablet Take 1 tablet twice daily Quantity: 0 Refills: 0 Ordered: 07-Feb-2020 DO Active Comment on above: TAKE 1 AND 1/2 TABLE TS BY MOUTH 2 TIMES A DAY propranolol hydrochloride 20 mg oral tablet (10 sources) beta-Adrenergic Elham Start: 3 End: 4 take 1 tablet by mouth twice daily propranolol (Inderal) 20 mg tablet Indications: Intractable chronic migraine without aura and without status migrainosus Take 1 tablet (20 mg) by mouth 2 times a day. 60 tablet 5 05/23/2023 11/16/2023 Discontinued (Med List Cleanup) Start: 05-23-2023 End: 11-19-2023 take 1 tablet by mouth every twelve hours propranolol (INDERAL) 20 mg tablet Take 20 mg by mouth every 12 hours. 0 05/23/2023 11/19/2023 Active Comment on above: Take 20 mg by mouth every 12 hours. semaglutide, weight loss, (Wegovy) 0.25 mg/0.5 mL pen injector (1 source) Start: 09-09-19 End: 02-23-20 inject 0.25 mg by subcutaneous injection every week semaglutide, weight loss, (Wegovy) 0.25 mg/0.5 mL pen injector Indications: Body mass index (BMI) 50.0-59.9, adult (CMS/HCC) Inject 0.25 mg under the skin 1 (one) time per week. 2 mL 0 09/08/2022 02/22/2023 Discontinued (Med List Cleanup) sertraline 100 mg oral tablet (1 source) Serotonin Reuptake Inhibitor take 1 tablet by mouth once daily Zoloft 100 mg oral tablet ; 1 tab(s) orally once a day Quantity: 0 Refills: 0 Ordered: 28-Mar-2019 Juanita Berger Status: Discontinued Generic Substitution Allowed simethicone 80 mg chewable tablet (2 sources) Start: 05-13-20 End: 05-23-20 simethicone (Mylicon) 80 mg chewable tablet Indications: Abdominal bloating Chew 1 tablet (80 mg) every 6 hours if needed for flatulence for up to 10 days. 30 tablet 0 05/13/2023 05/23/2023 Active SUMAtriptan 50 mg oral tablet (10 sources) Serotonin-1b and Serotonin-1d Receptor Agonist Start: 05-23-20 End: 05-22-20 SUMAtriptan (Imitrex) 50 mg tablet Indications: Intractable chronic migraine without aura and without status migrainosus Take 1 tablet (50 mg) by mouth 1 time if needed for migraine. May repeat after 2 hours. 9 tablet 5 05/23/2023 11/16/2023 Discontinued (Med List Cleanup) take 1 tablet by mouth once as n eeded Imitrex 100 mg oral tablet ; 1 tab(s) orally once, As Needed Quantity: 0 Refills: 0 Ordered: 28-Mar-2019 Juanita Berger Status: Discontinued Generic Substitution Allowed Completed/Discontinued Medications Medication Drug Class(es) Dates Sig (Normalized) Sig (Original) acetaminophen 325 mg / HYDROcodone bitartrate 5 mg oral tablet (3 sources) Opioid Agonist Start: 07-22-2022 take 1 tablet by mouth three times daily as needed HYDROcodone-Acet aminophen 5-325 MG Oral Tablet TAKE 1 TABLET 3 times daily PRN Quantity: 20 Refills: 0 Ordered: 22-Jul-2022 Figueroa Martinez MD Start : 22-Jul-2022 Active azelastine hydrochloride 0.137 mg/actuat metered dose nasal spray (1 source) Histamine-1 Receptor Antagonist Start: 07-14-2022 take 2 spray(s) nasal route once daily Azelastine HCl - 137 MCG/SPRAY Nasal Solution INSTILL 2 SPRAYS IN EACH NOSTRIL ONCE DAILY Quantity: 1 Refills: 3 Ordered: 14-Jul-2022 Tenisha Brown DO Start : 14-Jul-2022 Active 12 hr buPROPion hydrochloride 200 mg extended release oral tablet (12 sources) Aminoketone Start: 10-21-2020 take 1 tablet by mouth every twelve hours buPROPion HCl ER (SR) 200 MG Oral Tablet Extended Release 12 Hour Quantity: 60 Refills: 0 Ordered: 21-Oct-2020 DO Start : 21-Oct-2020 Complete Start: 03-31-2019 End: 04-29-2019 buPROPion 100 mg/12 hours (S R) oral tablet, extended release ; 1 tab(s) orally 2 times a day - (Every 1 day at 09:00, 15:00 ) Quantity: 60 Refills: 0 Ordered: 31-Mar-2019 Mya Hutchins Start: 31-Mar-2019 End: 29-Apr-2019 Dispense As Written take 1 tablet by ayaz twice daily buPROPion HCl ER (XL) 150 MG Oral Tablet Extended Release 24 Hour Take 1 tablet twice daily Quantity: 0 Refills: 0 Ordered: 07-Feb-2020 DO Active cefTRIAXone 1000 mg injection (3 sources) Cephalosporin Antibacterial Start: 07-22-2022 CefTRIAXone Sodium 1 GM Injection Solution Reconstituted inject 1gm IM Quantity: 0 Refills: 0 Ordered: 22-Jul-2022 Figueroa Martinez MD Start : 22-Jul-2022 Complete cefuroxime 500 mg oral tablet (6 sources) Cephalosporin Antibacterial Start: 07-14-2022 take 1 tablet by mouth twice daily Cefuroxime Axetil 500 MG Oral Tablet Take 1 tablet twice daily Quantity: 20 Refills: 0 Ordered: 14-Jul-2022 Tenisha Brown DO Start : 14-Jul-2022 Active Start: 06-18-2021 End: 07-28-2021 take 1 tablet by mouth once daily Cefuroxime Axetil 500 MG Oral Tablet TAKE 1 TABLET EVERY 12 HOURS DAILY. Quantity: 20 Refills: 1 Ordered: 18-Jun-2021 Tenisha Brown DO Start : 18-Jun-2021 End : 28-Jul-2021 Complete citalopram 20 mg oral tablet (9 sources) Serotonin Reuptake Inhibitor Start: 10-05-2020 Citalopram Hydrobrom akbar 20 MG Oral Tablet Quantity: 30 Refills: 0 Ordered: 05-Oct-2020 DO Start : 05-Oct-2020 Active take 1 tablet by mouth at bedtim e CeleXA 10 MG Oral Tablet TAKE 1 TABLET Bedtime Refills: 0 Active clonazePAM 1 mg oral tablet (20 sources) Benzodiazepine End: 10-05-2023 take 1 tablet by mouth twice daily as needed clonazePAM (KlonoPIN) 1 mg tablet TAKE 1 TABLET BY MOUTH 2 TIMES A DAY NEEDED FOR PANIC ATTACKS 10/05/2023 Discontinued (Med List Cleanup) take 1 tablet by ayaz th once daily as needed for anxiety clonazePAM 1 MG Oral Tablet TAKE 1 TABLE T Daily prn anxiety Quantity: 0 Refills: 0 Ordered: 07-Feb-2020 DO Active take 1 tablet by ayaz th three times daily as needed clonazePAM 0.5 mg oral tablet ; 1 tab(s) orally 3 times a day, As Needed Quantity: 0 Refills: 0 Ordered: 28-Mar-2019 Juanita Berger Status: Discontinued Generic Substitution Allowed diclofenac sodium 0.01 mg/mg topical gel (1 source) Nonsteroidal Anti-inflammatory Drug Start: 05-21-2022 Voltaren 1 % External Gel APPLY 4 GM Every twelve hours PRN PAIN Quantity: 1 Refills: 0 Ordered: 21-May-2022 Thee Zambrano III, MD Start : 21-May-2022 Active drospirenone / Ethinyl Estradiol (1 source) Progestin, Estrogen take 1 tablet by mouth once daily Alida 3 mg-0.03 mg oral tablet ; 1 tab(s) orally once a day Quantity: 0 Refills: 0 Ordered: 28-Mar-2019 Juanita Berger Status: Discontinued Generic Substitution Allowed hydrocortisone 10 mg/ml / neomycin 3.5 mg/ml / polymyxin b 20809 unt/ml otic suspension (2 sources) Aminoglycoside Antibacterial, Polymyxin-class Antibacterial, Corticosteroid Start: 06-18-2021 Mrqvvopg-Pjaqnwmip-FA [id number] Otic Suspension INSTILL 3 DROPS IN BOTH EARS 3-4 TIMES DAILY. Quantity: 1 Refills: 1 Ordered: 18-Jun-2021 Tenisha Brown DO Start : 18-Jun-2021 Active hydrOXYzine hydrochloride 25 mg oral tablet (1 source) Antihistamine Start: 03-31-2019 End: 04-29-2019 take 1 tablet by mouth once daily as needed for anxiety hydrOXYzine hydrochloride 25 mg oral tablet ; 1 tab(s) orally once a day, As Needed -Anxiety/Agitation Quantity: 30 Refills: 0 Ordered: 31-Mar-2019 Mya Hutchins Start: 31-Mar-2019 End: 29-Apr-2019 Generic Substitution Allowed ibuprofen 600 mg oral tablet (1 source) Nonsteroidal Anti-inflammatory Drug Start: 09-24-2016 take 1 tablet by mouth every six hours as needed ibuprofen (MOTRIN) 600 mg tablet Take 1 tablet by mouth every 6 hours as needed for Pain. 24 tablet 0 09/24/2016 Active Comment on above: Take 1 tablet by ayaz th every 6 hours as needed for Pain. levoFLOXacin 500 mg oral tablet (3 sources) Quinolone Antimicrobial Start: 07-22-2022 take 1 tablet by mouth once daily levoFLOXacin 500 MG Oral Tablet TAKE 1 TABLET DAILY DIRECTED. Quantity: 10 Refills: 0 Ordered: 22-Jul-2022 Figueroa Martinez MD Start : 22-Jul-2022 Active meloxicam 15 mg oral tablet (4 sources) Nonsteroidal Anti-inflammatory Drug Start: 12-16-2021 take 1 tablet by mouth once daily Meloxicam 15 MG Oral Tablet TAKE 1 TABLET DAILY. Quantity: 30 Refills: 1 Ordered: 16-Dec-2021 Tenisha Brown DO Start : 16-Dec-2021 Active methylPREDNISolone (2 sources) Corticosteroid Start: 03-16-2023 End: 03-31-2023 methylPREDNISolone (Medrol Dospak) 4 mg tablets Indications: Back pain, unspecified back location, unspecified back pain laterality, unspecified chronicity , Muscle spasm Follow schedule on package instructions- Dose Lizandro 21 tablet 0 03/16/2023 03/31/2023 Discontinued (Med List Cleanup) Start: 03-16-2023 methylPREDNISo lone (Medrol Dospak) 4 mg tablets Indications: Back pain, unspecified back location, unspecified back pain laterality, unspecified chronicity , Muscle spasm Follow schedule on package instructions- Dose Lizandro 21 tablet 0 03/16/2023 Active 24 hr metoprolol succinate 25 mg extended release oral tablet (3 sources) beta-Adrenergic Elham Start: 03-31-2019 End: 04-29-2019 take 1 tablet by mouth once daily metoprolol succinate 25 mg oral tablet, extended release ; 1 tab(s) orally once a day Quantity: 30 Refills: 0 Ordered: 31-Mar-2019 Naeem Alexis Start: 31-Mar-2019 End: 29-Apr-2019 Generic Substitution Allowed metroNIDAZOLE 500 mg oral tablet (6 sources) Nitroimidazole Antimicrobial Start: 07-28-2021 take 1 tablet by mouth twice daily metroNIDAZOLE 500 MG Oral Tablet Take 1 tablet twice daily Quantity: 20 Refills: 0 Ordered: 28-Jul-2021 Figueroa Martinez MD Start : 28-Jul-2021 Active piroxicam 20 mg oral capsule (13 sources) Nonsteroidal Anti-inflammatory Drug Start: 07-28-2021 take 1 capsule by mouth once daily Piroxicam 20 MG Oral Capsule TAKE 1 CAPSULE BY MOUTH EVERY DAY Quantity: 30 Refills: 1 Ordered: 28-Jul-2021 Figueroa Martinez MD Start : 28-Jul-2021 Active Start: 02-26-2021 take 1 capsule by mo [facility] once daily at mealtime Piroxicam 20 MG Oral Capsule TAKE 1 CAPSULE DAILY WITH A MEAL. Quantity: 30 Refills: 1 Ordered: 26-Feb-2021 Tenisha Brown DO Start : 26-Feb-2021 Active predniSONE 10 mg oral tablet (1 source) Start: 02-07-2020 predniSONE 10 MG Oral Tablet 4x3 days, 3x3 days, 2x3 days, 1x3 days Quantity: 30 Refills: 0 Figueroa Martinez MD Start : 07-Feb-2020 Active psyllium 3400 mg powder for oral suspension (2 sources) Start: 05-13-2023 End: 05-12-2024 psyllium (Metamucil) 3.4 gram packet Indications: Abdominal bloating Take 1 packet by mouth once daily. Mix and drink with at least 8 ounces of water or juice. 30 packet 11 05/13/2023 05/23/2023 Discontinued (Med List Cleanup) temazepam 7.5 mg oral capsule (4 sources) Benzodiazepine Start: 07-27-2023 End: 10-05-2023 temazepam (RestoriL) 7.5 mg capsule Indications: insomnia Take 1 capsule (7.5 mg) by mouth as needed at bedtime for sleep. 30 capsule 07/28/2023 10/05/2023 Discontinued (Med List Cleanup) traMADol hydrochloride 50 mg oral tablet (6 sources) Opioid Agonist Start: 07-28-2021 take 1 tablet by mouth every six hours as needed traMADol HCl - 50 MG Oral Tablet TAKE 1 TABLET EVERY 6 HOURS NEEDED. Quantity: 28 Refills: 0 Ordered: 29-Jul-2021 Figueroa Martinez MD Start : 28-Jul-2021 Active Start: 02-07-2020 take 1 tablet by [facility] every six hours as needed for pain traMADol HCl - 50 MG Oral Tablet TAKE 1 TABLET EVERY 6 HOURS NEEDED FOR PAIN. Quantity: 24 Refills: 0 Figueroa Martinez MD Start : 07-Feb-2020 Active traZODone hydrochloride 100 mg oral tablet (20 sources) Serotonin Reuptake Inhibitor Start: 10-21-2020 take 2 tablets by mouth once daily traZODone HCl - 100 MG Oral Tablet take 2 tablets nightly Quantity: 60 Refills: 2 Ordered: 26-Feb-2021 DO Start : 21-Oct-2020 Active Start: 10-21-2020 traZODone HCl - 100 MG Oral Tablet Quantity: 60 Refills: 0 Ordered: 21-Oct-2020 DO Start : 21-Oct-2020 Active Start: 03-31-2019 End: 03-31-2019 take 1 tablet by mouth once at bedtime as needed traZODone 100 mg oral tablet ; 1 tab(s) orally once (at bedtime), As needed, insomnia Quantity: 30 Refills: 0 Ordered: 31-Mar-2019 Mya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 [address] [place] [address] [place] Calcium [Mass/Vol] 9.4 mg/dL Normal 8.5-10.2 [facility] Comment on above: Order Comment: Speci men Type: BLOOD SPECIMEN Ordering Facility: [facility] Address: [address] [place] [address] Performed By: #### 5 643-2, HCG #### [facility] CLIA [id number] [address] [place] [address] [place] Chloride [Moles/Vol] 102 mmol/L Normal 97-105 [facility] Comment on above: Order Comment: Speci men Type: BLOOD SPECIMEN Ordering Facility: [facility] Address: [address] [place] [address] Performed By: #### 5 643-2, HCG #### [facility] CLIA [id number] [address] [place] [address] [place] CO2 [Moles/Vol] 23 mmol/L Normal 22-30 [facility] Comment on above: Order Comment: Speci men Type: BLOOD SPECIMEN Ordering Facility: [facility] Address: [address] [place] [address] Performed By: #### 5 643-2, HCG #### [facility] CLIA [id number] [address] [place] [address] [place] Creatinine [Mass/Vol] 0.80 mg/dL Normal 0.58-0.96 [facility] Comment on above: Order Comment: Kishaisa storey Type: BLOOD SPECIMEN Ordering Facility: [facility] Address: [address] [place] [address] Performed By: #### 5 643-2, HCG #### [facility] CLIA [id number] [address] [place] Creatinine and Glomerular filtration rate.predicted panel (S/P/Bld) 100 mL/min/1.73m??? Normal >=60 [facility] Comment on above: Order Comment: Drew storey Type: BLOOD SPECIMEN Ordering Facility: [facility] Address: [address] [place] [address] Result Comment: Yumi mated Glomerular Filtration Rate (eGFR) is calculated using the 2020 CKD-EPI creatinine equation. This equation utilizes serum creatinine, sex, and age as parameters. The creatinine assay has traceable calibration to isotope dilution-mass spectrometry. Refer to KDIGO guidelines for clinical interpretation. In patients with unstable renal function, e.g. those with acute kidney injury, the eGFR may not accurately reflect actual GFR. Performed By: #### 5 643-2, HCG #### [facility] CLIA [id number] [address] [place] [address] [place] Glucose [Mass/Vol] 105 mg/dL High 74-99 [facility] Comment on above: Order Comment: Drew storey Type: BLOOD SPECIMEN Ordering Facility: [facility] Address: [address] [place] [address] Result Comment: The [place] Diabetes Association (ADA) provides guidance for cutoff values for fasting glucose and random glucose. The ADA defines fasting as no caloric intake for at least 8 hours. Fasting plasma glucose results between 100 to 125 mg/dL indicate increased risk for diabetes (prediabetes). Fasting plasma glucose results greater than or equal to 126 mg/dL meet the criteria for diagnosis of diabetes. In the absence of unequivocal hyperglycemia, results should be confirmed by repeat testing. In a patient with classic symptoms of hyperglycemia or hyperglycemic crisis, random plasma glucose results greater than or equal to 200 mg/dL meet the criteria for diagnosis of diabetes. Reference: Standards of Medical Care in Diabetes 2016, [place] [employer] Association. Diabetes Care. 2016.39(Suppl 1). Performed By: #### 5 643-2, HCG #### [facility] CLIA [id number] [address] STATES [facility] Potassium [Moles/Vol] 3.6 mmol/L Low 3.7-5.1 [facility] Comment on above: Order Comment: Speci men Type: BLOOD SPECIMEN Ordering Facility: [facility] Address: [address] [place] [address] Performed By: #### 5 643-2, HCG #### [facility] CLIA [id number] [address] [place] Protein [Mass/Vol] 7.3 g/dL Normal 6.3-8.0 [facility] Comment on above: Order Comment: Speci men Type: BLOOD SPECIMEN Ordering Facility: [facility] Address: [address] [place] [address] Performed By: #### 5 643-2, HCG #### [facility] CLIA [id number] [address] Sodium [Moles/Vol] 137 mmol/L Normal 136-144 [facility] Comment on above: Order Comment: Speci men Type: BLOOD SPECIMEN Ordering Facility: [facility] Address: [address] [place] [address] Performed By: #### 5 643-2, HCG #### [facility] CLIA [id number] [address] Urea nitrogen [Mass/Vol] 12 mg/dL Normal 7-21 [facility] Comment on above: Order Comment: Speci men Type: BLOOD SPECIMEN Ordering Facility: [facility] Address: [address] [place] [address] Performed By: #### 5 643-2, HCG #### [facility] CLIA [id number] [address] [facility] D dimer FEU PPP-mCncon 08-06 Fibrin D-dimer FEU (PPP) [Mass/Vol] <190 Normal <500 [facility] Comment on above: Order Comment: Speci men Type: BLOOD SPECIMEN Ordering Facility: [facility] Address: [address] [place], [place] [address] Performed By: #### 3 4528-0, 64676-0, 42990-1 #### [facility] CLIA [id number] [address] [place] [address] [facility] ECG COMPLETEon 08-07-2023 ECG COMPLETE Ventricular Rate : 7 9 BPM Atrial Rate : 79 BPM P-R Interval : 136 ms QRS Duration : 92 ms Q-T Interval : 396 ms QTC Calculation(Bazett) : 454 ms Calculated P Tea : 44 degrees Calculated R Tea : 56 degrees Calculated T Tea : 30 degrees NORMAL SINUS RHYTHM NORMAL ECG no stemi Confirmed by MD GIBBS EDWARD.S (), assignment editor STERLING STRONG (1942) on 08/07/2023 3:24:59 PM NAME : JANNETH CUEVAS PID : [id number] : 1990 Gender : Female Race : ORD : [id number] Procedure Date : Aug 07 2023 10:44:51 Edit Date : Aug 07 2023 15:24:59 Diagnosis: NORMAL SINUS RHYTHM NORMAL ECG no stemi Confirmed by MD GIBBS EDWARD.S (), assignment editor STERLING STRONG (1942) on 08/07/2023 3:24:59 PM Test Reason : Arrhythmia Location : 1 : ER 7 Overread By : MD SAI,EDMUND.S Edited By : STERLING STRONG Referred By : , Acquired by : talisha carvalho, [facility] ED NOTEon 08-07-2023 ED NOTE HNO ID: [id number] Author: EUNICE LEON RN Service: ? Author Type: Registered Nurse Type: ED Notes Filed: 08/07/2023 11:28 Note Text: Pt mother at bed side to pick pt up. Pt less anxious and feels better. Pt verbalized understanding to follow up and get rx filled [facility] ED NOTE HNO ID: [id number] Author: EUNICE LEON RN Service: ? Author Type: Registered Nurse Type: ED Notes Filed: 08/07/2023 10:32 Note Text: RN spoke with intake [facility] ED NOTE HNO ID: [id number] Author: EUNICE LEON RN Service: ? Author Type: Registered Nurse Type: ED Notes Filed: 08/07/2023 10:29 Note Text: Pt medicated for anxiety. Pt more relaxed at this time. Pt already talked to intake. RN called intake back at this time [facility] ED NOTE HNO ID: [id number] Author: EUNICE LEON RN Service: ? Author Type: Registered Nurse Type: ED Notes Filed: 08/07/2023 08:34 Note Text: Bed: ED-07 Expected date: 08/07/23 Expected time: Means of arrival: Comments: [facility] ED NOTE HNO ID: [id number] Author: EUNICE LEON RN Service: ? Author Type: Registered Nurse Type: ED Notes Filed: 08/07/2023 08:34 Note Text: Pt was driving and became very anxious. Pt has hx of anxiety. Pt under higher stress at the moment. Pt extremely anxious at this time. Pt out of her anxiety meds [facility] ED PROV NOTEon 08-07-2023 ED PROV NOTE HNO ID: [id number] Author: EDMUND GIBBS MD Service: Emergency Medicine Author Type: Physician Type: ED Provider Notes Filed: 08/07/2023 10:48 Note Text: ED Provider Note Patient Name: Janneth Cuevas : 1990 SERVICE DATE: 08/07/23 History Patient presents with: Anxiety Ms. Cuevas is a 33-year-old female presenting today with much worsened anxiety. She notes that her father has cancer which is terminal for the third time and is an alcoholic and it is very difficult dealing with all of that, so recently she made the difficult decision to stop interacting with him and with several other members of her family in association. 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 She denies new chest pain, but does have some trouble breathing, feels largely like previous anxiety, though she has not completely confident of that. No unilateral weakness or numbness or trouble speaking or swallowing. She does have a history of migraines and she does feel little light sensitive presently. She is not really sure if she needs psychiatric hospitalization right now, though she would like to avoid it, she is a bit worried that she will not do well without it. She denies any suicidal or homicidal thinking. She ran out of her clonazepam a few days ago and is not able to refill it for about 4 to 5 days, given that she has had more anxiety. PAST MEDICAL HISTORY Diagnosis Date Migraines Psychiatric disorder PAST SURGICAL HISTORY Procedure Laterality Date ORTHOPEDICS SURGERY HX PAST SURGICAL HISTORY OF 06/06/2002 nidia removed on left left FAMILY HISTORY Problem Relation Age of Onset Cancer Mother Cataract Maternal Grandmother Hypertension Maternal Grandmother Cataract Maternal Grandfather Hypertension Maternal Grandfather Cancer Maternal Grandfather Cataract Paternal Grandmother Diabetes Paternal Grandmother Hypertension Paternal Grandmother Cancer Paternal Grandmother Cataract Paternal Grandfather Hypertension Paternal Grandfather Cancer Paternal Grandfather Blindness Maternal Aunt Cancer Maternal Aunt Cancer Paternal Uncle Social History Tobacco Use Smoking status: Former Packs/day: .5 Types: Cigarettes Quit date: 07/27/2016 Years since quittin.0 Smokeless tobacco: Never Vaping Use Vaping Use: current everyday user Substances: THC Devices: Disposable Substance and Sexual Activity Alcohol use: No Drug use: Yes Types: Marijuana Sexual activity: Not on file ALLERGIES Allergen Reactions Erythromycin GI Upset Sulfacetamide Itching Vancomycin Itching Review of Systems Constitutional: Negative for chills and fever. HENT: Negative for ear pain, rhinorrhea and sore throat. Respiratory: Negative for cough and shortness of breath. Cardiovascular: Negative for chest pain and leg swelling. Gastrointestinal: Negative for abdominal pain, diarrhea, nausea and vomiting. Genitourinary: Negative for dysuria, flank pain, frequency and hematuria. Musculoskeletal: Negative for back pain. Skin: Negative for rash. Neurological: Negative for speech difficulty, weakness, light-headedness, numbness and headaches. Psychiatric/Behavioral: Negative for hallucinations and suicidal ideas. The patient is nervous/anxious. Physical Exam Vitals [08/07/23 0825] BP Pulse Temp Temp src Resp SpO2 Weight Height 167/87 75 36.6 ?C (97.8 ?F) Oral 18 100 % 127 kg (280 lb) -- Physical Exam Vitals and nursing note reviewed. Constitutional: General: She is not in acute distress. Appearance: She is well-developed. HENT: Head: Normocephalic and atraumatic. Eyes: Pupils: Pupils are equal, round, and reactive to light. Neck: Trachea: No tracheal deviation. Cardiovascular: Rate and Rhythm: Normal rate. Heart sounds: No murmur heard. No friction rub. No gallop. Pulmonary: Effort: Pulmonary effort is normal. No respiratory distress. Breath sounds: Normal breath sounds. No wheezing or rales. Abdominal: General: Bowel sounds are normal. There is no distension. Palpations: Abdomen is soft. Tenderness: There is no abdominal tenderness. There is no guarding or rebound. Musculoskeletal: General: Normal range of motion. Cervical back: Normal range of motion and neck supple. Lymphadenopathy: Cervical: No cervical adenopathy. Skin: General: Skin is warm and dry. Findings: No erythema. Neurological: Mental Status: She is alert and oriented to person, place, and time. Cranial Nerves: No cranial nerve deficit. Motor: No abnormal muscle tone. Psychiatric: Comments: Anxious, crying, hyperventilating, no SI or HI Diagnostic Testing ED Labs Ordered and Reviewed - No data to display Procedures ED Course / Clinical Impression C (more content not included)... Normal [facility] Ethanol SerPl-mCncon 024 Ethanol [Mass/Vol] mg/dL Normal <11 [facility] Comment on above: Order Comment: Drew storey Type: BLOOD SPECIMEN Ordering Facility: [facility] Address: [address] [place] [address] Performed By: #### 5 643-2, HCG #### [facility] CLIA [id number] [address] [place] [address] [place] HCG QUAL BLDon 08-07-2023 HCG, QUALITATIVE Negative Normal Negative [facility] Comment on above: Order Comment: Drew storey Type: BLOOD SPECIMEN Ordering Facility: [facility] Address: [address] [place] [address] Performed By: #### 5 643-2, HCG #### [facility] CLIA [id number] [address] [place] [address] [place] HIGH SENSITIVITY TROPONIN To n 08-07-2023 Troponin T.cardiac High sensitivity method [Mass/Vol] <6 Normal <12 [facility] Comment on above: Order Comment: Speci men Type: BLOOD SPECIMEN Ordering Facility: [facility] Address: [address] [place] [address] Result Comment: When assessing risk for acute coronary syndromes: In patients undergoing blood draw greater than or equal to 2 hours from symptom onset, with history of very low to moderate risk and non-ischemic ECG, an initial hs-Troponin T less than 12 ng/L AND a 1 hour delta hs-Troponin T less than 3 ng/L should be considered very low risk for 30 day MACE. Performed By: #### 5 643-2, HCG #### [facility] CLIA [id number] [address] [place] Magnesium SerPl-mCncon 08-06 Magnesium [Mass/Vol] 1.7 mg/dL Normal 1.7-2.3 [facility] Comment on above: Order Comment: Drew storey Type: BLOOD SPECIMEN Ordering Facility: [facility] Address: [address] [place] [address] Performed By: #### 5 643-2, HCG #### [facility] CLIA [id number] [address] [place] PT panel Coag (PPP)on 2023 INR Coag (PPP) [Relative time] 1.0 {INR} Normal 0.9-1.3 [facility] Comment on above: Order Comment: Drew storey Type: BLOOD SPECIMEN Ordering Facility: [facility] Address: [address] [place] [address] Result Comment: Ling min K Antagonist (VKA) Therapeutic Range: INR 2 to 3 (Target INR of 2.5) Note: For patients treated with VKA drugs, such as warfarin, the [place] [employer] 2012 Guideline recommends a therapeutic INR range of 2 to 3 (target INR of 2.5). This recommendation includes high-risk patients with antiphospholipid syndrome with previous arterial or venous thromboembolism, current-generation mechanical or bioprosthetic aortic heart valve replacement. Note: Patients with mechanical aortic valve replacement and additional risk factors for thromboembolic events (atrial fibrillation, previous thromboembolism, LV dysfunction, hypercoagulable conditions) or an older generation mechanical AVR (i.e., ball in-Cage) or any mechanical MVR should have a INR therapeutic range of 2.5 to 3.5 (target INR of 3). Dustin GH, et al. Chest 2012, 141:7S-47S Tom RA, et al. [facility] 2017, 70: 252-289 Performed By: #### 3 4528-0, 90961-3, 19066-0 #### [facility] CLIA [id number] [address] [facility] PT Coag (PPP) [Time] 10.8 s Normal 9.7-13.0 [facility] Comment on above: Order Comment: Speci men Type: BLOOD SPECIMEN Ordering Facility: [facility] Address: [address] [place] [address] Performed By: #### 3 4528-0, 96412-2, 11112-1 #### [facility] CLIA [id number] 1000 [place] [id number] [facility] XR CHEST 1V FRONTAL PORTon 0 08-07-2023 XR CHEST 1V FRONTAL PORT * * *Final Report* * * DATE OF EXAM: Aug 07 2023 9:16AM MDX [id number] - XR CHEST 1V FRONTAL PORT / PROCEDURE REASON: Shortness of breath * * * * Physician Interpretation * * * * EXAMINATION: CHEST RADIOGRAPH (PORTABLE SINGLE VIEW AP) Exam Date/Time: 08/07/2023 9:16 AM CLINICAL HISTORY: Shortness of breath MQ: XCPR_5 Comparison: None. RESULT: Lines, tubes, and devices: None. Lungs and pleura: No consolidative opacities or mass lesion identified. No large pleural effusions or pneumothorax. Cardiomediastinal silhouette: The cardiac silhouette and and mediastinal contour are within normal limits. Other: None. IMPRESSION: No acute findings. Resistance Brazer: PSCB Transcribe Date/Time: Aug 07 2023 9:24A Dictated by : NUSRAT MCGUIRE MD This examination was interpreted and the report reviewed and electronically signed by: NUSRAT MCGUIRE MD on Aug 07 2023 9:25AM EST [id number] Normal [facility] aPTT PPPon 08-07-2023 aPTT Coag (PPP) [Time] 39.7 s High 23.0-32.4 [facility] Comment on above: Order Comment: Speci men Type: BLOOD SPECIMEN Ordering Facility: [facility] Address: [address] [place] [address] Performed By: #### 3 4528-0, 69178-4, 81589-5 #### [facility] CLIA [id number] [address] [place] [address] [facility] Comprehensive metabolic 2000 panelon 07-26-2023 Albumin BCP dye [Mass/Vol] 4.1 g/dL Normal 3.4-5.0 [facility] Comment on above: Performed By: #### 2 4323-8 #### EUNICE Jimenez ([id number]) [facility] [address] [place] [address] ALP [Catalytic activity/Vol] 63 U/L Normal 33-110 [facility] Comment on above: Performed By: #### 2 4323-8 #### EUNICE Jimenez ([id number]) [facility] [address] [place] [address] ALT With P-5'-P [Catalytic activity/Vol] 23 U/L Normal 7-45 [facility] Comment on above: Result Comment: Patricia ents treated with Sulfasalazine may generate falsely decreased results for ALT. Performed By: #### 2 4323-8 #### EUNICE Jimenez ([id number]) [facility] [address] [place] [address] Anion gap [Moles/Vol] 13 mmol/L Normal 10-20 [facility] Comment on above: Performed By: #### 2 4323-8 #### EUNICE NERI L ([id number]) [facility] [address] [place] [address] AST With P-5'-P [Catalytic activity/Vol] 24 U/L Normal 9-39 [facility] Comment on above: Result Comment: MILD HEMOLYSIS DETECTED. The result may be falsely elevated due to hemolysis or other interferents. Clinical correlation is recommended. Repeat testing may be considered. Performed By: #### 2 4323-8 #### EUNICE Jimenez ([id number]) [facility] [address] [place] [address] Bilirubin [Mass/Vol] 0.3 mg/dL Normal 0.0-1.2 [facility] Comment on above: Performed By: #### 2 4323-8 #### EUNICE Jimenez ([id number]) [facility] [address] [place] [address] Calcium [Mass/Vol] 8.9 mg/dL Normal 8.6-10.6 [facility] Comment on above: Performed By: #### 2 4323-8 #### EUNICE Jimenez ([id number]) [facility] [id number] [place] [address] Chloride [Moles/Vol] 104 mmol/L Normal 98-107 [facility] Comment on above: Performed By: #### 2 4323-8 #### EUNICE Jimenez ([id number]) [facility] [address] [place] [address] CO2 [Moles/Vol] 27 mmol/L Normal 21-32 [facility] Comment on above: Performed By: #### 2 4323-8 #### EUNICE Jimenez ([id number]) [facility] [address] [place] [address] Creatinine [Mass/Vol] 0.62 mg/dL Normal 0.50-1.05 [facility] Comment on above: Performed By: #### 2 4323-8 #### EUNICE NERI L ([id number]) [facility] [address] [place] [address] GFR/1.73 sq M.predicted MDRD (S/P/Bld) [Vol rate/Area] mL/min/{1.73_m2} Normal >60 [facility] Comment on above: Result Comment: Calc ulations of estimated GFR are performed using the 2020 CKD-EPI Study Refit equation without the race variable for the IDMS-Traceable creatinine methods. https://jasn.asnjournals.org/content//ASN.472816 1235 Performed By: #### 2 4323-8 #### EUNICE NERI L ([id number]) [facility] [address] [place] [address] Glucose [Mass/Vol] 87 mg/dL Normal 74-99 [facility] Comment on above: Performed By: #### 2 4323-8 #### EUNICE BARRIOSER L ([id number]) [facility] [address] [place] [address] Potassium [Moles/Vol] 4.5 mmol/L Normal 3.5-5.3 [facility] Comment on above: Result Comment: MILD HEMOLYSIS DETECTED. The result may be falsely elevated due to hemolysis or other interferents. Clinical correlation is recommended. Repeat testing may be considered. Performed By: #### 2 4323-8 #### EUNICE NERI L ([id number]) [facility] [address] [place] [address] Protein [Mass/Vol] 6.6 g/dL Normal 6.4-8.2 [facility] Comment on above: Performed By: #### 2 4323-8 #### EUNICE LEWISMOTZER L ([id number]) [facility] [address] [place] [address] Sodium [Moles/Vol] 139 mmol/L Normal 136-145 [facility] Comment on above: Performed By: #### 2 4323-8 #### EUNICE LEWISMOTZER L ([id number]) [facility] [address] [place] [address] Urea nitrogen [Mass/Vol] 12 mg/dL Normal 6-23 [facility] Comment on above: Performed By: #### 2 4323-8 #### EUNICE LEWISMOTZER L ([id number]) [facility] [address] [place] [address] Thyrotropinon 02-20-2024 TSH Qn 0.48 m[IU]/L Normal 0.44-3.98 [facility] Comment on above: Order Comment: TSH t esting is performed using different testing methodology at [facility] than at other [facility]. Direct result comparisons should only be made within the same method. Performed By: #### 3 016-3 #### EUNICE Jimenez ([id number]) [facility] [address] [place], [place] [id number] Thyrotropin receptor Abon TSH receptor Ab Qn (S) <1.10 Normal <=1.75 [facility] Comment on above: Result Comment: Perf ormed By: [employer] [address] [place] [address] Tray Delivery Aide: Amando Singh MD, PhD CLIA Number: [id number] Performed By: #### 5 385-0 #### [facility] ([facility]) ([id number]) [address] [place] [address] Thyroxine.freeon 07-26-2023 Free T4 [Mass/Vol] 0.75 ng/dL Low 0.78-1.48 [facility] Comment on above: Order Comment: Thyro xine Free testing is performed using different testing methodology at [facility] than at [facility]. Direct result comparisons should only be made within the same method. Performed By: #### 3 024-7 #### EUNICE Jimenez ([id number]) [facility]) [address] [place], [place] [id number] Triiodothyronineon T3 [Mass/Vol] 115 ng/dL Normal 60-200 [facility] Comment on above: Performed By: #### 3 053-6 #### EUNICE Jimenez ([id number]) [facility] [address] [place], [place] [id number] Ferritinon 06-07-2023 Ferritin [Mass/Vol] 24 ng/mL Normal 8-150 [facility] Comment on above: Performed By: #### 2 276-4 #### EUNICE BARRIOSER L ([id number]) [facility]) [id number] [place] [address] Iron and Iron binding capaci ty panelon 06-07-2023 Iron [Mass/Vol] 59 ug/dL Normal 35-150 [facility] Comment on above: Performed By: #### 5 0190-8 #### EUNICE SCHMOTZER L ([id number]) [facility] [id number] [place] [address]63 Iron binding capacity [Mass/Vol] 455 ug/dL High 240-445 [facility] Comment on above: Performed By: #### 5 0190-8 #### EUNICE SCHMOTZER L ([id number]) [facility] [address] [place] [address] Iron binding capacity.unsaturated [Mass/Vol] 396 ug/dL High 110-370 [facility] Comment on above: Performed By: #### 5 0190-8 #### EUNICE LEWISMOTZER L ([id number]) [facility] [address] [place] [address] Iron saturation [Mass fraction] 13 % Low 25-45 [facility] Comment on above: Performed By: #### 5 0190-8 #### EUNICE SCHMOTZER L ([id number]) [facility] [address] [place] [address] US THYROIDon 04-22-2023 US THYROID Interpreted By: Arturo Gentile, STUDY: US THYROID; 04/22/2023 1:46 pm INDICATION: Signs/Symptoms:low TSH level. COMPARISON: None. ACCESSION NUMBER(S): [id number] ORDERING CLINICIAN: ANAY CANTU TECHNIQUE: Multiple ultrasonographic images of the thyroid gland were obtained. FINDINGS: Thyroid appears homogeneous in echotexture. RIGHT LOBE: Right thyroid lobe measures 5 x 1.5 x 1.7 cm. No discrete nodule is seen. LEFT LOBE: Left thyroid lobe measures 5 x 1.4 x 1.5 cm. No discrete nodule is seen. ISTHMUS: Thyroid isthmus measures 4 mm in AP diameter without discrete lesion. IMPRESSION: Negative thyroid ultrasound. MACRO: None Signed by: Arturo Holley 04/23/2023 8:46 AM Dictation workstation: [id number] Normal [facility] Thyroid stimulating immunogl obulinson 03-31-2023 Thyroid stimulating immunoglobulins Qn (S) <1.0 Normal <=1.3 [facility] Comment on above: Result Comment: Test Performed by: [facility] [address] [place] [address] [employer]: Miguelangel Tirado M.D. Ph.D.; CLIA# [id number] Performed By: #### 3 0567-2 #### [facility] ([facility]) ([id number]) , Thyroperoxidase Abon 023 TPO Ab Qn [IU]/mL Normal <=60 [facility] Comment on above: Order Comment: Negat michelle: <=60 U/mL Positive: >60 U/mL Performed By: #### 8 099-4 #### EUNICE Jimenez ([id number]) [facility] [address] [place] [address] CBCon 02-23-2023 Erythrocyte distribution width (RBC) [Ratio] 12.7 % Normal 11.5 - 14.5 [facility] Comment on above: Performed By: #### H BA1E #### [facility] [address] [place] [address] Hematocrit (Bld) [Volume fraction] 40.4 % Normal 36.0 - 46.0 [facility] Comment on above: Performed By: #### H BA1E #### [facility] [address] [place] [address] Hemoglobin (Bld) [Mass/Vol] 12.3 g/dL Normal 12.0 - 16.0 [facility] Comment on above: Performed By: #### H BA1E #### [facility] [address] [place] [address] MCHC (RBC) [Mass/Vol] 30.4 g/dL Low 32.0 - 36.0 [facility] Comment on above: Performed By: #### H BA1E #### [facility] [address] [place] [address] MCV (RBC) [Entitic vol] 92 fL Normal 80 - 100 [facility] Comment on above: Performed By: #### H BA1E #### [facility] [address] [place] [address] NUCLEATED RBC 0.0 /100 WBC Normal 0.0-0.0 [facility] Comment on above: Performed By: #### H BA1E #### [facility] [address] [place] [address] Platelets (Bld) [#/Vol] 348 10*3/uL Normal 150 - 450 [facility] Comment on above: Performed By: #### H BA1E #### [facility] [address] [place] [address] RBC 4.38 x10E12/L Normal 4.00 - 5.20 [facility] Comment on above: Performed By: #### H ARIELA1E #### [facility] [address] [place] [address] WBC (Bld) [#/Vol] 7.6 10*3/uL Normal 4.4 - 11.3 [facility] Comment on above: Performed By: #### H BA1E #### [facility] [address] [place] [address] COMPREHENSIVE PANELon 2022 Albumin [Mass/Vol] 4.1 g/dL Normal 3.4 - 5.0 [facility] Comment on above: Performed By: #### C MP #### [facility] [address] [place] [address] ALP [Catalytic activity/Vol] 58 U/L Normal 33 - 110 [facility] Comment on above: Performed By: #### C MP #### [facility] [address] [place] [address] ALT [Catalytic activity/Vol] 17 U/L Normal 7 - 45 [facility] Comment on above: Result Comment: Patricia ents treated with Sulfasalazine may generate falsely decreased results for ALT. Performed By: #### C MP #### [facility] [address] [place] [address] Anion gap [Moles/Vol] 11 mmol/L Normal 10 - 20 [facility] Comment on above: Performed By: #### C MP #### [facility] [address] [place] [address] AST [Catalytic activity/Vol] 17 U/L Normal 9 - 39 [facility] Comment on above: Performed By: #### C MP #### [facility] [address] [place] [address] Bilirubin [Mass/Vol] 0.2 mg/dL Normal 0.0 - 1.2 [facility] Comment on above: Performed By: #### C MP #### [facility] [address] [place] [address] Calcium [Mass/Vol] 9.5 mg/dL Normal 8.6 - 10.6 [facility] Comment on above: Performed By: #### C MP #### [facility] [address] [place] [address] Chloride [Moles/Vol] 105 mmol/L Normal 98 - 107 [facility] Comment on above: Performed By: #### C MP #### [facility] [address] [place] [address] Creatinine [Mass/Vol] 0.69 mg/dL Normal 0.50 - 1.05 [facility] Comment on above: Performed By: #### C MP #### [facility] [address] [place] [address] eGFR FEMALE >90 Normal >90 [facility] Comment on above: Result Comment: CALC ULATIONS OF ESTIMATED GFR ARE PERFORMED USING THE 2020 CKD-EPI STUDY REFIT EQUATION WITHOUT THE RACE VARIABLE FOR THE IDMS-TRACEABLE CREATININE METHODS. https://jasn.asnjournals.org/content/early//ASN.237911 4633 Performed By: #### C MP #### [facility] [address] [place] [address] Glucose [Mass/Vol] 79 mg/dL Normal 74 - 99 [facility] Comment on above: Performed By: #### C MP #### [facility] [address] [place] [address] HCO3 (Bld) [Moles/Vol] 30 mmol/L Normal 21 - 32 [facility] Comment on above: Performed By: #### C MP #### [facility] [address] [place] [address] Potassium [Moles/Vol] 4.1 mmol/L Normal 3.5 - 5.3 [facility] Comment on above: Performed By: #### C MP #### [facility] [address] [place] [address] Protein [Mass/Vol] 7.1 g/dL Normal 6.4 - 8.2 [facility] Comment on above: Performed By: #### C MP #### [facility] [address] [place] [address] Sodium [Moles/Vol] 142 mmol/L Normal 136 - 145 [facility] Comment on above: Performed By: #### C MP #### [facility] [address] [place] [address] Urea nitrogen [Mass/Vol] 11 mg/dL Normal 6 - 23 [facility] Comment on above: Performed By: #### C MP #### [facility] [address] [place] [address] HEMOGLOBIN A1Con 02-23-2023 Glucose [Mass/Vol] 97 mg/dL Normal [facility] Comment on above: Performed By: #### H BA1E #### [facility] [address] [place] [address] HbA1c (Bld) [Mass fraction] 5.0 % Normal [facility] Comment on above: Result Comment: Diag nosis of Diabetes-Adults Non-Diabetic: < or = 5.6% Increased risk for developing diabetes: 5.7-6.4% Diagnostic of diabetes: > or = 6.5% . Monitoring of Diabetes Age (y) Therapeutic Goal (%) Adults: >18 <7.0 Pediatrics: 13-18 <7.5 7-12 <8.0 0- 6 7.5-8.5 [place] [employer]. Diabetes Care 33(S1), Jun 2009. Performed By: #### H BA1E #### [facility] [address] [place] [address] LIPID PANEL (CORONARY RISK 2 )on 02-23-2023 Cholesterol [Mass/Vol] 176 mg/dL Normal 0 - 199 [facility] Comment on above: Result Comment: . AGE DESIRABLE BORDERLINE HIGH HIGH 0-19 Y 0 - 169 170 - 199 >/= 200 20-24 Y 0 - 189 190 - 224 >/= 225 >24 Y 0 - 199 200 - 239 >/= 240 All ranges are based on fasting samples. Specific therapeutic targets will vary based on patient-specific cardiac risk. . Pediatric guidelines reference:Pediatrics 2011, 128(S5). Adult guidelines reference: NCEP ATPIII Guidelines, JAYNE 2001, 258:7466-97 . Venipuncture immediately after or during the administration of Metamizole may lead to falsely low results. Testing should be performed immediately prior to Metamizole dosing. Performed By: #### L IPID #### [facility] [address] [place] [address] Cholesterol in HDL [Mass/Vol] 45.6 mg/dL Normal [facility] Comment on above: Result Comment: . AGE VERY LOW LOW NORMAL HIGH 0-19 Y < 35 < 40 40-45 ---- 20-24 Y ---- < 40 >45 ---- >24 Y ---- < 40 40-60 >60 . Performed By: #### L IPID #### [facility] [address] [place] [address] Cholesterol in LDL [Mass/Vol] 110 mg/dL High 0 - 99 [facility] Comment on above: Result Comment: . NEAR BORD AGE DESIRABLE OPTIMAL HIGH HIGH VERY HIGH 0-19 Y 0 - 109 --- 110-129 >/= 130 ---- 20-24 Y 0 - 119 --- 120-159 >/= 160 ---- >24 Y 0 - 99 100-129 130-159 160-189 >/=190 . Performed By: #### L IPID #### [facility] [address] [place] [address] Cholesterol in VLDL [Mass/Vol] 20 mg/dL Normal 0 - 40 [facility] Comment on above: Performed By: #### L IPID #### [facility] [address] [place] [address] Cholesterol.total/Cho lesterol in HDL [Mass ratio] 3.9 {ratio} Normal [facility] Comment on above: Result Comment: REF VALUES DESIRABLE < 3.4 HIGH RISK > 5.0 Performed By: #### L IPID #### [facility] [address] [place] [address] Triglyceride [Mass/Vol] 101 mg/dL Normal 0 - 149 [facility] Comment on above: Result Comment: . AGE DESIRABLE BORDERLINE HIGH HIGH VERY HIGH 0 D-90 D 19 - 174 ---- ---- ---- 91 D- 9 Y 0 - 74 75 - 99 >/= 100 ---- 10-19 Y 0 - 89 90 - 129 >/= 130 ---- 20-24 Y 0 - 114 115 - 149 >/= 150 ---- >24 Y 0 - 149 150 - 199 200- 499 >/= 500 . Venipuncture immediately after or during the administration of Metamizole may lead to falsely low results. Testing should be performed immediately prior to Metamizole dosing. Performed By: #### L IPID #### [facility] [address] [place] [address] THYROXINE,FREEon 02-23-2023 THYROXINE,FREE 0.80 ng/dL Normal 0.78 - 1.48 [facility] Comment on above: Result Comment: Thyr oxine Free testing is performed using different testing methodology at [facility] than at [facility]. Direct result comparisons should only be made within the same method. Performed By: #### T 4FRE #### [facility] [address] [place] [address] TSH WITH REFLEX TO FREE T4 I F ABNORMALon 02-23-2023 TSH Qn 0.32 m[IU]/L Low 0.44 - 3.98 [facility] Comment on above: Result Comment: TSH testing is performed using different testing methodology at [facility] than at other [facility]. Direct result comparisons should only be made within the same method. Performed By: #### T HYDS #### [place] [address] [place] [id number] VAGINITIS GRAM STAIN FOR OMER TERIAL VAGINOSIS + YEASTon 02-23-2023 CLUE CELLS PRESENT Abnormal [facility] Comment on above: Performed By: #### H BA1E #### [facility] [address] [place] [address] MADHU SCORE 7 Abnormal [facility] Comment on above: Result Comment: Inte rpretation of the Madhu Score 0-3.....Normal vaginal microbiota 4-6.....Intermediate results 7-10....Bacterial vaginosis Performed By: #### H BA1E #### [facility] [address] [place] [id number] Yeast LM Ql (Urine sed) ABSENT Normal [facility] Comment on above: Performed By: #### H BA1E #### [facility] [address] [place] [address] TSH WITH REFLEX TO FREE T4 I F ABNORMALon 02-22-2023 Lab Specimen Source Normal [facility] Comment on above: Performed By: #### T HYDS #### [facility] [address] [place] [address] Performed By: #### T 4FRE #### [facility] [address] [place] [id number] Performed By: #### H BA1E #### [facility] [address] [place] [id number] [facility] Follow-up visit Diagnoses/Problems Vertigo (780.4) (R42) Sore throat (462) (J02.9) Sinusitis (473.9) (J32.9) Cough (786.2) (R05.9) Acute non-recurrent pansinusitis (461.8) (J01.40) Labyrinthitis (386.30) (H83.09) Otitis media (382.9) (H66.90) Morbid obesity with BMI of 45.0-49.9, adult (278.01,V85.42) (E66.01,Z68.42) Allergic rhinitis (477.9) (J30.9) Bipolar disorder, mixed (296.60) (F31.60) Orders Allergic rhinitis Administered: Triamcinolone Acetonide 40 MG/ML Injection Suspension (Kenalog) Otitis media Start: HYDROcodone-Acetaminophen 5-325 MG Oral Tablet; TAKE 1 TABLET 3 times daily PRN Start: levoFLOXacin 500 MG Oral Tablet; TAKE 1 TABLET DAILY DIRECTED Administered: CefTRIAXone Sodium 1 GM Injection Solution Reconstituted Patient Discussion/Summary By signing my name below, I, Mouna Figueroa, attest that this documentation has been prepared under the direction and in the presence of Figueroa Martinez MD. All medical record entries made by the Scribe were at my direction and personally dictated by me. I have reviewed the chart and agree that the record accurately reflects my personal performance of the history, physical exam, discussion and plan. f/u 2 weeks with JE Continue current medications and therapy for chronic medical conditions rocephin and kenalog injection today start levaquin 500 mg qd x 10 days give work note for 07/22/22 [place] 5-325 mg tid prn I personally reviewed the OARRS report for this patient. I have considered the risks of abuse, dependence, addiction, and diversion. Patient's use of medication is allowing patient to be able to perform ADL's. Patient is always being evaluated for the possibility of lowering the medication dosage. consider wegovy in future Chief Complaint B/L Ear pain vertigo History of Present Illness B/L Ear pain,sinus pressure,headache,scratch y throat ,pt seen [facility] on 07/14/22. She states her vertigo is worse and the meclizine is not working. Review of Systems 12 Systems have been reviewed as follows. Constitutional: Fever, weight gain, weight loss, appetite change, night sweats, fatigue, chills. Eyes : blurry, double vision, vision, loss, tearing, redness, pain, sensitivity to light, glaucoma. Ears, nose, mouth, and throat: Hearing loss, ringing in the ears, ear pain, nasal congestion, nasal drainage, nosebleeds, mouth, throat, irritation tooth problem. Cardiovascular :chest pain, pressure, heart racing, palpitations, sweating, leg swelling, high or low blood pressure Pulmonary: Cough, yellow or green sputum, blood and sputum, shortness of breath, wheezing Gastrointestinal: Nausea, vomiting, diarrhea, constipation, pain, blood in stool, or vomitus, heartburn, difficulty swallowing Genitourinary: incontinence, abnormal bleeding, abnormal discharge, urinary frequency, urinary hesitancy, pain, impotence sexual problem, infection, urinary retention Musculoskeletal: Pain, stiffness, joint, redness or warmth, arthritis, back pain, weakness, muscle wasting, sprain or fracture Neuro: Weight weakness, dizziness, change in voice, change in taste change in vision, change in hearing, loss, or change of sensation, trouble walking, balance problems coordination problems, shaking, speech problem Endocrine , cold or heat intolerance, blood sugar problem, weight gain or loss missed periods hot flashes, sweats, change in body hair, change in libido, increased thirst, increased urination Heme/lymph: Swelling, bleeding, problem anemia, bruising, enlarged lymph nodes Allergic/immunologic: H. plus nasal drip, watery itchy eyes, nasal drainage, immunosuppressed The above were reviewed and noted negative except as noted in HPI and Problem List. Active Problems Abdominal pain (789.00) (R10.9) Acute bilateral low back pain without sciatica (724.2,338.19) (M54.50) Acute non-recurrent pansinusitis (461.8) (J01.40) Acute pharyngitis (462) (J02.9) AGE (acute gastroenteritis) (558.9) (K52.9) Allergic rhinitis (477.9) (J30.9) Anxiety (300.00) (F41.9) [facility] Back strain (847.9) (S39.012A) Bipolar disorder, mixed (296.60) (F31.60) Body mass index (BMI) of 50.0 to 59.9 in adult (V85.43) (Z68.43) Chest pain (786.50) (R07.9) Close exposure to COVID-19 virus (V01.79) (Z20.822) Contusion of abdominal wall (922.2) (S30.1XXA) Contusion of right hand, sequela (906.3) (S60.221S) Contusion, thigh (924.00) (S70.10XA) Costochondritis (733.6) (M94.0) Cough (786.2) (R05.9) Depression (311) (F32.A) followed by [facility] Diarrhea (787.91) (R19.7) Dizziness (780.4) (R42) Dry heaves (787.03) (R11.10) Encounter for hearing evaluation (V72.19) (Z01.10) Encounter for immunization (V03.89) (Z23) Fatigue (780.79) (R53.83) Gagging episode (478.29) (R19.8) GERD (gastroesophageal reflux disease) (530.81) (K21.9) Hand contusion (923.20) (S60.229A) Hand pain (729.5) (M79.643) Hip pain, left (719.45) (M25.552) IBS (irritable bowel syndrome) (564 (more content not included)... Normal [employer] Tobacco Screening.on 023 Fall risk assessment a) No falls within the last year [facility] Work Phone: Tobacco use status [facility]PHS b) No [facility] Work Phone: CBCon 07-21-2022 Erythrocyte distribution width (RBC) [Ratio] 12.2 % Normal 11.5 - 14.5 [facility] Comment on above: Performed By: #### C BC #### [address] [id number] Hematocrit (Bld) [Volume fraction] 40.2 % Normal 36.0 - 46.0 [facility] Comment on above: Performed By: #### C BC #### [address] [id number] Hemoglobin (Bld) [Mass/Vol] 12.8 g/dL Normal 12.0 - 16.0 [facility] Comment on above: Performed By: #### C BC #### [address] [id number] MCHC (RBC) [Mass/Vol] 31.8 g/dL Low 32.0 - 36.0 [facility] Comment on above: Performed By: #### C BC #### [address] [id number] MCV (RBC) [Entitic vol] 89 fL Normal 80 - 100 [facility] Comment on above: Performed By: #### C BC #### [address] [id number] Platelets (Bld) [#/Vol] 329 10*3/uL Normal 150 - 450 [facility] Comment on above: Performed By: #### C BC #### [address] [id number] RBC 4.52 x10E12/L Normal 4.00 - 5.20 [facility] Comment on above: Performed By: #### C BC #### [address] [id number] WBC (Bld) [#/Vol] 6.1 10*3/uL Normal 4.4 - 11.3 [facility] Comment on above: Performed By: #### C BC #### [address] [id number] COMPREHENSIVE PANELon 2022 Albumin [Mass/Vol] 4.0 g/dL Normal 3.4 - 5.0 [facility] Comment on above: Performed By: #### C MP #### [address] [id number] ALP [Catalytic activity/Vol] 60 U/L Normal 33 - 110 [facility] Comment on above: Performed By: #### C MP #### [address] [id number] ALT [Catalytic activity/Vol] 29 U/L Normal 7 - 45 [facility] Comment on above: Result Comment: Patricia ents treated with Sulfasalazine may generate falsely decreased results for ALT. Performed By: #### C MP #### [address] [id number] Anion gap [Moles/Vol] 13 mmol/L Normal 10 - 20 [facility] Comment on above: Performed By: #### C MP #### [address] [id number] AST [Catalytic activity/Vol] 31 U/L Normal 9 - 39 [facility] Comment on above: Performed By: #### C MP #### [address] [id number] Bilirubin [Mass/Vol] 0.3 mg/dL Normal 0.0 - 1.2 [facility] Comment on above: Performed By: #### C MP #### [address] [id number] Calcium [Mass/Vol] 9.2 mg/dL Normal 8.6 - 10.3 [facility] Comment on above: Performed By: #### C MP #### [address] [id number] Chloride [Moles/Vol] 104 mmol/L Normal 98 - 107 [facility] Comment on above: Performed By: #### C MP #### [address] [id number] Creatinine [Mass/Vol] 0.71 mg/dL Normal 0.50 - 1.05 [facility] Comment on above: Performed By: #### C MP #### [address] [id number] eGFR FEMALE >90 Normal >90 [facility] Comment on above: Result Comment: CALC ULATIONS OF ESTIMATED GFR ARE PERFORMED USING THE 2020 CKD-EPI STUDY REFIT EQUATION WITHOUT THE RACE VARIABLE FOR THE IDMS-TRACEABLE CREATININE METHODS. https://jasn.asnjournals.org/content/early/ASN.045871 0784 Performed By: #### C MP #### [address] [id number] Glucose [Mass/Vol] 99 mg/dL Normal 74 - 99 [facility] Comment on above: Performed By: #### C MP #### [address] [id number] HCO3 (Bld) [Moles/Vol] 26 mmol/L Normal 21 - 32 [facility] Comment on above: Performed By: #### C MP #### [address] [id number] Potassium [Moles/Vol] 4.0 mmol/L Normal 3.5 - 5.3 [facility] Comment on above: Performed By: #### C MP #### [address] [id number] Protein [Mass/Vol] 6.9 g/dL Normal 6.4 - 8.2 [facility] Comment on above: Performed By: #### C MP #### [address] [id number] Sodium [Moles/Vol] 139 mmol/L Normal 136 - 145 [facility] Comment on above: Performed By: #### C MP #### [address] [id number] Urea nitrogen [Mass/Vol] 5 mg/dL Low 6 - 23 [facility] Comment on above: Performed By: #### C MP #### [address] [id number] HEMOGLOBIN A1Con 07-21-2022 Glucose [Mass/Vol] 103 mg/dL Normal [facility] Comment on above: Performed By: #### H BA1E #### [facility] [address] [place] [address] HbA1c (Bld) [Mass fraction] 5.2 % Normal [facility] Comment on above: Result Comment: Diag nosis of Diabetes-Adults Non-Diabetic: < or = 5.6% Increased risk for developing diabetes: 5.7-6.4% Diagnostic of diabetes: > or = 6.5% . Monitoring of Diabetes Age (y) Therapeutic Goal (%) Adults: >18 <7.0 Pediatrics: 13-18 <7.5 7-12 <8.0 0- 6 7.5-8.5 [place] [employer]. Diabetes Care 33(S1), Jun 2009. Performed By: #### H BA1E #### [facility] [address] [place] [address] LIPID PANEL (CORONARY RISK 2 )on 07-21-2022 Cholesterol [Mass/Vol] 180 mg/dL Normal 0 - 199 [facility] Comment on above: Result Comment: . AGE DESIRABLE BORDERLINE HIGH HIGH 0-19 Y 0 - 169 170 - 199 >/= 200 20-24 Y 0 - 189 190 - 224 >/= 225 >24 Y 0 - 199 200 - 239 >/= 240 All ranges are based on fasting samples. Specific therapeutic targets will vary based on patient-specific cardiac risk. . Pediatric guidelines reference:Pediatrics 2011, 128(S5). Adult guidelines reference: NCEP ATPIII Guidelines, JAYNE 2001, 258:2486-97 . Venipuncture immediately after or during the administration of Metamizole may lead to falsely low results. Testing should be performed immediately prior to Metamizole dosing. Performed By: #### H BA1E #### [facility] [address] [place] [address] Cholesterol in HDL [Mass/Vol] 34.4 mg/dL Abnormal [facility] Comment on above: Result Comment: . AGE VERY LOW LOW NORMAL HIGH 0-19 Y < 35 < 40 40-45 ---- 20-24 Y ---- < 40 >45 ---- >24 Y ---- < 40 40-60 >60 . Performed By: #### H BA1E #### [facility] [address] [place] [address] Cholesterol in LDL [Mass/Vol] 122 mg/dL High 0 - 99 [facility] Comment on above: Result Comment: . NEAR BORD AGE DESIRABLE OPTIMAL HIGH HIGH VERY HIGH 0-19 Y 0 - 109 --- 110-129 >/= 130 ---- 20-24 Y 0 - 119 --- 120-159 >/= 160 ---- >24 Y 0 - 99 100-129 130-159 160-189 >/=190 . Performed By: #### H BA1E #### [facility] [address] [place] [address] Cholesterol in VLDL [Mass/Vol] 23 mg/dL Normal 0 - 40 [facility] Comment on above: Performed By: #### H BA1E #### [facility] [address] [place] [address] Cholesterol.total/Cho lesterol in HDL [Mass ratio] 5.2 {ratio} Abnormal [facility] Comment on above: Result Comment: REF VALUES DESIRABLE < 3.4 HIGH RISK > 5.0 Performed By: #### H BA1E #### [facility] [address] [place] [address] Triglyceride [Mass/Vol] 116 mg/dL Normal 0 - 149 [facility] Comment on above: Result Comment: . AGE DESIRABLE BORDERLINE HIGH HIGH VERY HIGH 0 D-90 D 19 - 174 ---- ---- ---- 91 D- 9 Y 0 - 74 75 - 99 >/= 100 ---- 10-19 Y 0 - 89 90 - 129 >/= 130 ---- 20-24 Y 0 - 114 115 - 149 >/= 150 ---- >24 Y 0 - 149 150 - 199 200- 499 >/= 500 . Venipuncture immediately after or during the administration of Metamizole may lead to falsely low results. Testing should be performed immediately prior to Metamizole dosing. Performed By: #### H BA1E #### [facility] [address] [place] [address] THYROXINEon 07-21-2022 T4 [Mass/Vol] 9.3 ug/dL Normal 4.5 - 11.1 [facility] Comment on above: Performed By: #### T 4 #### [facility] [address] [place] [address] THYROXINE,FREEon 07-21-2022 THYROXINE,FREE 0.73 ng/dL Normal 0.61 - 1.12 [facility] Comment on above: Result Comment: Thyr oxine Free testing is performed using different testing methodology at [facility] than at other [facility]. Direct result comparisons should only be made within the same method. . Biotin can cause falsely elevated free T4 results. Patients taking a Biotin dose of up to 10 mg/day should refrain from taking Biotin for 24 hours before sample collection. Patient taking a Biotin dose of >10 mg/day should consult with their physician or the laboratory before the blood draw. Performed By: #### T 4FRE #### [facility] [address] [place], [place] [id number] TSHon 07-21-2022 TSH Qn 0.30 m[IU]/L Low 0.44 - 3.98 [facility] Comment on above: Result Comment: TSH testing is performed using different testing methodology at [facility] than at other [facility]. Direct result comparisons should only be made within the same method. Performed By: #### H BA1E #### [facility] [address] [place] [address] Office Visit (Family Medicin e)on 07-14-2022 Follow-up visit Diagnoses/Problems Labyrinthitis (386.30) (H83.09) Otitis media (382.9) (H66.90) Polydipsia (783.5) (R63.1) Vertigo (780.4) (R42) Fatigue (780.79) (R53.83) Orders Fatigue, Labyrinthitis, Otitis media, Polydipsia, Vertigo Complete Blood Count; Status:Active - Retrospective Authorization; Requested for:[id number]; Comprehensive Metabolic Panel; Status:Active - Retrospective Authorization; Requested for:[id number]; Hemoglobin A1C; Status:Active - Retrospective Authorization; Requested for:[id number]; Lipid Panel; Status:Active - Retrospective Authorization; Requested for:[id number]; T4 - Free Thyroxine, Serum; Status:Active - Retrospective Authorization; Requested for:[id number]; Thyroxine, Serum (T4); Status:Active - Retrospective Authorization; Requested for:[id number]; TSH - Thyroid Stimulating Hormone, Serum; Status:Active - Retrospective Authorization; Requested for:[id number]; Labyrinthitis, Otitis media, Polydipsia, Vertigo Start: Azelastine HCl - 137 MCG/SPRAY Nasal Solution; INSTILL 2 SPRAYS IN EACH NOSTRIL ONCE DAILY Start: Cefuroxime Axetil 500 MG Oral Tablet; Take 1 tablet twice daily Start: Meclizine HCl - 25 MG Oral Tablet; TAKE 1 TABLET 3 TIMES DAILY NEEDED Patient Discussion/Summary By signing my name below, I, MAXIM Boyce Scribe, attest that this documentation has been prepared under the direction and in the presence of Tenisha Brown DO. All medical record entries made by the Mouna were at my direction and personally dictated by me. I have reviewed the chart and agree that the record accurately reflects my personal performance of the history, physical exam, discussion and plan. -In a face to face session, I informed patient of their BMI>35. This patient was advised the importance of proper diet and nutrition in addition to adequate hydration. This patient was encouraged to partake in a moderate exercise program to include 30 minutes daily for 5 days or 150 minutes weekly. Discussed risks of CAD and DM with obesity. This patient will follow up with us as scheduled. -Continue current medications and therapy for chronic medical conditions. -start azelastine -start ceftin -start meclizine -obtain labs -follow up in 3 weeks on vertigo and recheck right ear Chief Complaint vertigo, pt states she has been getting dizzy and having headaches and feels like the floor is giving out. B/L ear pain.Pt states ongoing for a week. History of Present Illness vertigo, pt states she has been getting dizzy and having headaches and feels like the floor is giving out. B/L ear pain.Pt states ongoing for a week. Review of Systems 12 Systems have been reviewed as follows. Constitutional: Fever, weight gain, weight loss, appetite change, night sweats, fatigue, chills. Eyes : blurry, double vision, vision, loss, tearing, redness, pain, sensitivity to light, glaucoma. Ears: nose, mouth, and throat: Hearing loss, ringing in the ears, ear pain, nasal congestion, nasal drainage, nosebleeds, mouth, throat, irritation tooth problem. Cardiovascular: chest pain, pressure, heart racing, palpitations, sweating, leg swelling, high or low blood pressure Pulmonary: Cough, yellow or green sputum, blood and sputum, shortness of breath, wheezing Gastrointestinal: Nausea, vomiting, diarrhea, constipation, pain, blood in stool, or vomitus, heartburn, difficulty swallowing Genitourinary: incontinence, abnormal bleeding, abnormal discharge, urinary frequency, urinary hesitancy, pain, impotence sexual problem, infection, urinary retention Musculoskeletal: Pain, stiffness, joint, redness or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 [address] [id number] Complete Blood Count + Diffe jerry 10-14-2021 Basophils/100 WBC (Bld) 0.6 % 0.0 - 2.0 [facility] Work Phone: Erythrocyte distribution width (RBC) [Ratio] 13.2 % See Below [facility]: Comment on above: Reference Range: 11. 5 - 14.5 Hematocrit (Bld) [Volume fraction] 38.8 % See Below [facility] Work Phone: Comment on above: Reference Range: 36. 0 - 46.0 Hemoglobin (Bld) [Mass/Vol] 12.0 g/dL See Below [facility] Work Phone: Comment on above: Reference Range: 12. 0 - 16.0 Lymphocytes/100 WBC (Bld) 26.1 % See Below [facility] Work Phone: Comment on above: Reference Range: 13. 0 - 44.0 MCHC (RBC) [Mass/Vol] 30.9 g/dL below low threshold See Below [facility] Work Phone: Comment on above: Reference Range: 32. 0 - 36.0 MCV (RBC) [Entitic vol] 89 fL 80 - 100 [facility] Work Phone: Monocytes/100 WBC (Bld) 5.9 % 2.0 - 10.0 [facility] Work Phone: Neutrophils/100 WBC (Bld) 64.6 % See Below [facility] Work Phone: Comment on above: Reference Range: 40. 0 - 80.0 Platelets (Bld) [#/Vol] 355 10*3/uL 150 - 450 [facility] Work Phone: RBC (Bld) [#/Vol] 4.38 {x10E12/L} See Below [facility] Work Phone: Comment on above: Reference Range: 4.0 0 - 5.20 WBC (Bld) [#/Vol] 9.3 10*3/uL 4.4 - 11.3 [facility] Work Phone: Complete Blood Count + Differential 0.06 {x10E9/L} See Below [facility] Work Phone: Comment on above: Reference Range: 0.0 0 - 0.10 Complete Blood Count + Differential 0.23 {x10E9/L} See Below [facility] n Work Phone: Comment on above: Reference Range: 0.0 0 - 0.70 Complete Blood Count + Differential 0.55 {x10E9/L} See Below [facility]: Comment on above: Reference Range: 0.1 0 - 1.00 Complete Blood Count + Differential 2.42 {x10E9/L} See Below [facility] Work [facility]: Comment on above: Reference Range: 1.2 0 - 4.80 Complete Blood Count + Differential 5.99 {x10E9/L} See Below [facility] [employer] Work Phone: Comment on above: Reference Range: 1.2 0 - 7.70 Complete Blood Count + Differential 2.5 % 0.0 - 6.0 [facility] n Work Phone: Complete Blood Count + Differential 0.3 % 0.0 - 0.9 [facility] [employer] Work Phone: Comment on above: Immature Granulocyte Count (IG) includes promyelocytes, myelocytes and metamyelocytes but does not include bands. Percent differential counts (%) should be interpreted in the context of the absolute cell counts (cells/L). Follicle Stimulating Hormone , Serumon 10-14-2021 Follitropin Qn 12.2 {IU/L} [facility] n Work Phone: Comment on above: REF VALUESFOLLICULAR [id number] 12-25LUTEAL PHASE 2-12MENOPAUSE 30-150PREPUBERTY 50% ADULTADULT MALE 2-10INFANTS 0-1 HCG, Beta Quantitativeon HCG.beta subunit Qn m[IU]/mL [facility] n Work Phone: Comment on above: Low-level positive H CG results can be seen in early , in annabelle- or post-menopausal females due to normal pituitary HCG production, or with analytic interference. Repeat testing in 48-72 hours can aid in assessing for as results should double in this time period. FSH measurement is recommended in annabelle- or post-menopausal females as concurrent elevation of FSH can support pituitary production as the source of the HCG elevation.. Total HCG measurement is performed using the [employer] Access Immunoassay which detects intact HCG and free beta HCG subunit. This test is not indicated for use as a tumor marker. HCG testing is performed using a different test methodology at [facility] than other [facility]. Direct result comparison should only be made within the same method. REF VALUESNON FEMALE <5MALES <5 HCG,BETA-QUANTITATIVEon 10-04 HCG,BETA-QUANTITATIVE <2 Normal [facility] Comment on above: Result Comment: Low- level positive HCG results can be seen in early , in annabelle- or post-menopausal females due to normal pituitary HCG production, or with analytic interference. Repeat testing in 48-72 hours can aid in assessing for as results should double in this time period. FSH measurement is recommended in annabelle- or post-menopausal females as concurrent elevation of FSH can support pituitary production as the source of the HCG elevation. . Total HCG measurement is performed using the Jluis [place] Access Immunoassay which detects intact HCG and free beta HCG subunit. This test is not indicated for use as a tumor marker. HCG testing is performed using a different test methodology at [facility] than other [facility]. Direct result comparison should only be made within the same method. REF VALUES NON FEMALE <5 MALES <5 Performed By: #### C #### [address] [id number] Hemoglobin A1Con 10-14-2021 Glucose [Mass/Vol] 105 mg/dL [facility] Work Phone: HbA1c (Bld) [Mass fraction] 5.3 % [facility] Work Phone: Comment on above: Diagnosis of Diabete s-Adults Non-Diabetic: < or = 5.6% Increased risk for developing diabetes: 5.7-6.4% Diagnostic of diabetes: > or = 6.5%. Monitoring of Diabetes Age (y) Therapeutic Goal (%) Adults: >18 <7.0 Pediatrics: 13-18 <7.5 7-12 <8.0 0- 6 7.5-8.5 [place] [employer]. Diabetes Care 33(S1), Jun 2009. LIPID PANEL (CORONARY RISK 2 )on 10-14-2021 Cholesterol [Mass/Vol] 121 mg/dL Normal 0 - 199 [facility] Comment on above: Result Comment: . AGE DESIRABLE BORDERLINE HIGH HIGH 0-19 Y 0 - 169 170 - 199 >/= 200 20-24 Y 0 - 189 190 - 224 >/= 225 >24 Y 0 - 199 200 - 239 >/= 240 All ranges are based on fasting samples. Specific therapeutic targets will vary based on patient-specific cardiac risk. . Pediatric guidelines reference:Pediatrics 2011, 128(S5). Adult guidelines reference: NCEP ATPIII Guidelines, JAYNE 2001, 258:2486-97 . Venipuncture immediately after or during the administration of Metamizole may lead to falsely low results. Testing should be performed immediately prior to Metamizole dosing. Performed By: #### L IPID #### [address] [id number] Cholesterol in HDL [Mass/Vol] 38.0 mg/dL Abnormal [facility] Comment on above: Result Comment: . AGE VERY LOW LOW NORMAL HIGH 0-19 Y < 35 < 40 40-45 ---- 20-24 Y ---- < 40 >45 ---- >24 Y ---- < 40 40-60 >60 . Performed By: #### L IPID #### [address] [id number] Cholesterol in LDL [Mass/Vol] 66 mg/dL Normal 0 - 99 [facility] Comment on above: Result Comment: . NEAR BORD AGE DESIRABLE OPTIMAL HIGH HIGH VERY HIGH 0-19 Y 0 - 109 --- 110-129 >/= 130 ---- 20-24 Y 0 - 119 --- 120-159 >/= 160 ---- >24 Y 0 - 99 100-129 130-159 160-189 >/=190 . Performed By: #### L IPID #### [address] [id number] Cholesterol in VLDL [Mass/Vol] 17 mg/dL Normal 0 - 40 [facility] Comment on above: Performed By: #### L IPID #### [address] [id number] Cholesterol.total/Cho lesterol in HDL [Mass ratio] 3.2 {ratio} Normal [facility] Comment on above: Result Comment: REF VALUES DESIRABLE < 3.4 HIGH RISK > 5.0 Performed By: #### L IPID #### [address] [id number] Triglyceride [Mass/Vol] 84 mg/dL Normal 0 - 149 [facility] Comment on above: Result Comment: . AGE DESIRABLE BORDERLINE HIGH HIGH VERY HIGH 0 D-90 D 19 - 174 ---- ---- ---- 91 D- 9 Y 0 - 74 75 - 99 >/= 100 ---- 10-19 Y 0 - 89 90 - 129 >/= 130 ---- 20-24 Y 0 - 114 115 - 149 >/= 150 ---- >24 Y 0 - 149 150 - 199 200- 499 >/= 500 . Venipuncture immediately after or during the administration of Metamizole may lead to falsely low results. Testing should be performed immediately prior to Metamizole dosing. Performed By: #### L IPID #### [address] [id number] Laboratory - Chemistry and C hemistry - challengeon 10-14-2021 Albumin BCP dye [Mass/Vol] 3.7 g/dL 3.4 - 5.0 [facility] Work Phone: ALP [Catalytic activity/Vol] 55 U/L 33 - 110 [facility] Work Phone: ALT With P-5'-P [Catalytic activity/Vol] 17 U/L 7 - 45 [facility] Work Phone: Comment on above: Patients treated wit h Sulfasalazine may generate falsely decreased results for ALT. Anion gap [Moles/Vol] 12 mmol/L 10 - 20 [facility] Work Phone: AST With P-5'-P [Catalytic activity/Vol] 15 U/L 9 - 39 [facility] Work Phone: Bilirubin [Mass/Vol] 0.2 mg/dL 0.0 - 1.2 [facility] Work Phone: Calcium [Mass/Vol] 8.4 mg/dL below low threshold 8.6 - 10.3 [facility] Work Phone: Chloride [Moles/Vol] 104 mmol/L 98 - 107 [facility] Work Phone: CO2 [Moles/Vol] 27 mmol/L 21 - 32 [facility] Work Phone: Creatinine [Mass/Vol] 0.67 mg/dL See Below [facility] Work Phone: Comment on above: Reference Range: 0.5 0 - 1.05 Glucose [Mass/Vol] 80 mg/dL 74 - 99 [facility] Work Phone: Potassium [Moles/Vol] 3.8 mmol/L 3.5 - 5.3 [facility] Work Phone: Protein [Mass/Vol] 6.6 g/dL 6.4 - 8.2 [facility] Work Phone: Sodium [Moles/Vol] 139 mmol/L 136 - 145 [facility] Work Phone: Urea nitrogen [Mass/Vol] 11 mg/dL 6 - 23 [facility] Work Phone: Lipid Panelon 10-14-2021 Cholesterol [Mass/Vol] 121 mg/dL 0 - 199 [facility] Work Phone: Comment on above: . AGE DESIRABLE BORD JOSEPH HIGH HIGH 0-19 Y 0 - 169 170 - 199 >/= 200 20-24 Y 0 - 189 190 - 224 >/= 225 >24 Y 0 - 199 200 - 239 >/= 240 All ranges are based on fasting samples. Specific therapeutic targets will vary based on patient-specific cardiac risk.. Pediatric guidelines reference:Pediatrics 2011, 128(S5). Adult guidelines reference: NCEP ATPIII Guidelines, JAYNE 2001, 258:2486-97. Venipuncture immediately after or during the administration of Metamizole may lead to falsely low results. Testing should be performed immediately prior to Metamizole dosing. Cholesterol in HDL [Mass/Vol] 38.0 mg/dL Abnormal [facility] Work Phone: Comment on above: . AGE VERY LOW LOW N ORMAL HIGH 0-19 Y < 35 < 40 40-45 ---- 20- 24 Y ---- < 40 >45 ---- >24 Y ---- < 40 40-60 >60. Cholesterol in LDL [Mass/Vol] 66 mg/dL 0 - 99 [facility] Work Phone: Comment on above: . NEAR BORD AGE ANGIE RABLE OPTIMAL HIGH HIGH VERY HIGH 0-19 Y 0 - 109 --- 110-129 >/= 130 ---- 20-24 Y 0 - 119 --- 120-159 >/= 160 ---- >24 Y 0 - 99 100-129 130-159 160-189 >/=190. Cholesterol.total/Cho lesterol in HDL [Mass ratio] 3.2 {ratio} [facility] Work Phone: Comment on above: REF VALUESDESIRABLE < 3.4HIGH RISK > 5.0 Triglyceride [Mass/Vol] 84 mg/dL 0 - 149 [facility] Work Phone: Comment on above: . AGE DESIRABLE BORD JOSEPH HIGH HIGH VERY HIGH 0 D-90 D 19 - 174 ---- ---- ----91 D- 9 Y 0 - 74 75 - 99 >/= 100 ---- 10-19 Y 0 - 89 90 - 129 >/= 130 ---- 20-24 Y 0 - 114 115 - 149 >/= 150 ---- >24 Y 0 - 149 150 - 199 200- 499 >/= 500. Venipuncture immediately after or during the administration of Metamizole may lead to falsely low results. Testing should be performed immediately prior to Metamizole dosing. Lipid Panel 17 mg/dL 0 - 40 [facility] Work [facility]: Luteinizing Hormone, Serumon 10-14-2021 Lutropin Qn 14.1 {IU/L} [facility] Work Phone: Comment on above: REF VALUESFOLLICULAR PHASE 1.9-12.5MID-CYCLE 8.7-76.3LUTEAL PHASE 0.5-16.9POST MENOPAUSE 5.0-55.2CHILDREN 0- 6.0ADULT MALE 18-70 1.5- 9.3ADULT MALE >70 3.1-34.6 No Panel Informationon 10-14 >90 >90 [facility] Work Phone: Comment on above: CALCULATIONS OF YUMI MATED GFR ARE PERFORMED USING THE 2020 CKD-EPI STUDY REFIT EQUATION WITHOUT THE RACE VARIABLE FOR THE IDMS-TRACEABLE CREATININE METHODS.https://jasn.asnjournals.org/content// N.6865732790 Prolactin, Serumon 2 Prolactin [Mass/Vol] 10.3 ug/L 3.0 - 20.0 [facility] Work Phone: TSHon 10-14-2021 TSH Qn 0.48 m[IU]/L Normal 0.44 - 3.98 [facility] Comment on above: Result Comment: TSH testing is performed using different testing methodology at [facility] than at [facility]. Direct result comparisons should only be made within the same method. Performed By: #### U RINC #### [facility] [address] [place] [address] TSH - Thyroid Stimulating Ho rmone, Serumon 10-14-2021 TSH Qn 0.48 m[IU]/L See Below [facility] Work Phone: Comment on above: Reference Range: 0.4 4 - 3.98 TSH testing is performed using different testing methodology at [facility] than at [facility]. Direct result comparisons should only be made within the same method. Thyroxine, Serum (T4)on 10-04 T4 [Mass/Vol] 8.2 ug/dL 4.5 - 11.1 [facility] Work Phone: UA MICROSCOPICon 10-14-2021 BACTERIA 1+ /HPF Abnormal [facility] Comment on above: Performed By: #### U AMIC #### [address] [id number] Mucus Ql (Urine sed) 1+ /LPF Normal [facility] Comment on above: Performed By: #### U AMIC #### [address] [id number] RBC NONE Normal 0-5 [facility] Comment on above: Performed By: #### U AMIC #### [address] [id number] SQUAMOUS EPITH. CELLS 9 /HPF Normal [facility] Comment on above: Performed By: #### U AMIC #### [address] [id number] WBC 9 /HPF Abnormal 0-5 [facility] Comment on above: Performed By: #### U AMIC #### [address] [id number] URINALYSISon 10-14-2021 Appearance (U) HAZY Normal CLEAR [facility] Comment on above: Performed By: #### C RP #### [address] [id number] Bilirubin Ql (U) Negative Normal NEGATIVE [facility] Comment on above: Performed By: #### C RP #### [address] [id number] Color (U) YELLOW Normal STRAW,YELLO W [facility] Comment on above: Performed By: #### C RP #### [address] [id number] Glucose Ql (U) Negative Normal NEGATIVE [facility] Comment on above: Performed By: #### C RP #### [address] [id number] Hemoglobin Ql (U) Negative Normal NEGATIVE [facility] Comment on above: Performed By: #### C RP #### [address] [id number] Ketones Ql (U) Negative Normal NEGATIVE [facility] Comment on above: Performed By: #### C RP #### [address] [id number] Leukocyte esterase Test strip Ql (U) MODERATE (2+) Abnormal NEGATIVE [facility] Comment on above: Performed By: #### C RP #### [address] [id number] Nitrite Ql (U) Negative Normal NEGATIVE [facility] Comment on above: Performed By: #### C RP #### [address] [id number] pH (U) 8.0 [pH] Normal 5.0 - 8.0 [facility] Comment on above: Performed By: #### C RP #### [address] [id number] Protein Ql (U) Negative Normal NEGATIVE [facility] Comment on above: Performed By: #### C RP #### [address] [id number] Specific gravity (U) [Rel density] 1.021 Normal 1.005 - 1.035 [facility] Comment on above: Performed By: #### C RP #### [address] [id number] Urobilinogen (U) [Mass/Vol] mg/dL Normal 0.0 - 1.9 [facility] Comment on above: Performed By: #### C RP #### [address] [id number] Urinalysison 10-14-2021 Color (U) YELLOW See Below -[facility] Work Phone: Comment on above: Reference Range: STR AW,YELLOW Glucose Ql (U) Negative NEGATIVE [facility] Work Phone: Ketones Ql (U) Negative NEGATIVE [facility] Work Phone: Leukocyte esterase Test strip Ql (U) MODERATE (2+) Abnormal NEGATIVE [facility] Work Phone: pH (U) 8.0 [pH] 5.0 - 8.0 [facility] Work Phone: Protein (U) [Mass/Vol] Negative NEGATIVE [facility] Work Phone: RBC (U) [#/Vol] Negative NEGATIVE [facility] Work Phone: Specific gravity (U) [Rel density] 1.021 1 See Below [facility] Work Phone: Comment on above: Reference Range: 1.0 05 - 1.035 Urinalysis Negative NEGATIVE [facility] Work Phone: Urinalysis <2.0 0.0 - 1.9 [facility] Work Phone: Urinalysis HAZY CLEAR [facility] Work Phone: Urinalysis, Microscopicon Urinalysis, Microscopic 1+ Abnormal [facility] Work Phone: Urinalysis, Microscopic 9 {/HPF} Abnormal 0-5 [facility] Work Phone: Urinalysis, Microscopic NONE 0-5 [facility] Work Phone: VITAMIN D, 25-HYDROXYon 10-04 VITAMIN D, 25-HYDROXY 22 ng/mL Abnormal [facility] Comment on above: Result Comment: . DEFICIENCY: < 20 NG/ML INSUFFICIENCY: 20-29 NG/ML SUFFICIENCY: 30-100 NG/ML THIS ASSAY ACCURATELY QUANTIFIES THE SUM OF VITAMIN D3, 25-HYDROXY AND VIT D2,25-HYDROXY. Performed By: #### C MP #### [address] [id number] Vitamin D 25-Hydroxyon 10-14 25-hydroxyvitamin D3 [Mass/Vol] 22 ng/mL Abnormal [facility] Work Phone: Comment on above: .DEFICIENCY: < 20 NG /MLINSUFFICIENCY: 20-29 NG/MLSUFFICIENCY: 30-100 NG/MLTHIS ASSAY ACCURATELY QUANTIFIES THE SUM OFVITAMIN D3, 25-HYDROXY AND VIT D2,25-HYDROXY. Initial Visit (Orthopaedic S urgery)on 09-29-2021 Initial Visit (Orthopaedic Surgery) Diagnoses/Problems Assessed Thumb pain (729.5) (M79.646) Orders Thumb pain Administer: Kenalog 10 MG/ML Injection Suspension (Triamcinolone Acetonide); inject 0.5 ml into Rt thumb; To Be Done: 29Sep2021 Xray Thumb 2 Views; Status:Resulted - Requires Verification; Done: 29Sep2021 02:27PM Laterality : Right Radiologist to Determine Optimal Study : Y What are the patient's signs and symptoms? : pain Administer: Lidocaine HCl - 1 % Injection Solution; INJECT 0.5 ML; To Be Done: 29Sep2021 Provider Impressions ASSESSMENT: Right thumb pain and swelling at interphalangeal joint likely secondary to overuse. PLAN: Treatment options were discussed. She elects for steroid injection into the interphalangeal joint and for two days of activity restriction. She is not to return to work for two days. She is okay for return to work on without restriction. I will see her back in a couple of weeks to ensure that she is making adequate progress. Upon return to the office, I would like to get three views of the right thumb. Chief Complaint RT Thumb pain and swelling no trauma. Xrays @ [facility] History of Present IllnessThe patient presents today for evaluation of her right thumb. She localizes discomfort and swelling to the right long finger at the IP joint. She states at work she has to do repetitive forceful pinching and gripping. She thinks that this is why the thumb is giving her discomfort. She denies discrete injury. She is right hand dominant. She states she is otherwise healthy. This has never happened before. Active Problems Problems Abdominal pain (789.00) (R10.9) Acute bilateral low back pain without sciatica (724.2,338.19) (M54.50) Acute non-recurrent pansinusitis (461.8) (J01.40) Acute pharyngitis (462) (J02.9) AGE (acute gastroenteritis) (558.9) (K52.9) Allergic rhinitis (477.9) (J30.9) Anxiety (300.00) (F41.9) Back strain (847.9) (S39.012A) Bipolar disorder, mixed (296.60) (F31.60) BMI 40.0-44.9, adult (V85.41) (Z68.41) Chest pain (786.50) (R07.9) Close exposure to COVID-19 virus (V01.79) (Z20.822) Contusion of abdominal wall (922.2) (S30.1XXA) Contusion of right hand, sequela (906.3) (S60.221S) Contusion, thigh (924.00) (S70.10XA) Costochondritis (733.6) (M94.0) Cough (786.2) (R05.9) Depression (311) (F32.A) Diarrhea (787.91) (R19.7) Dizziness (780.4) (R42) Dry heaves (787.03) (R11.10) Encounter for hearing evaluation (V72.19) (Z01.10) Encounter for immunization (V03.89) (Z23) Fatigue (780.79) (R53.83) Gagging episode (478.29) (R19.8) GERD (gastroesophageal reflux disease) (530.81) (K21.9) IBS (irritable bowel syndrome) (564.1) (K58.9) Lumbago (724.2) (M54.50) Migraine (346.90) (G43.909) Morbid obesity with BMI of 45.0-49.9, adult (278.01,V85.42) (E66.01,Z68.42) Muscle spasm (728.85) (M62.838) Nausea with vomiting (787.01) (R11.2) Osteoarthritis of lumbar spine (721.3) (M47.816) Otitis externa (380.10) (H60.90) R > L Pain of right hand (729.5) (M79.641) Rhinorrhea (478.19) (J34.89) Right elbow pain (719.42) (M25.521) Sinusitis (473.9) (J32.9) Sore throat (462) (J02.9) Stress (V62.89) (F43.9) Thumb pain (729.5) (M79.646) Vertigo (780.4) (R42) Viremia (790.8) (B34.9) Past Medical History Problems History of sore throat (V12.69) (Z87.09) Resolved Date: 22 Nov 2020 The patient's past medical history, family history, social history, and review of systems were documented on the patient medical intake form. The medical intake form was reviewed and scanned into the electronic medical record for future use. History is otherwise negative except as stated in the HPI. Surgical History Problems No history of surgery Family History Mother Family history of lung cancer (V16.1) (Z80.1) No pertinent family history Social History Problems Consumes alcohol weekly (V49.89) (Z78.9) Former smoker (V15.82) (Z87.891) Former smoker (V15.82) (Z87.891) Allergies erythromycin Recorded By: Antonina Mclaughlin; 07/21/2016 2:30:28 PM Erythromycin Derivatives Recorded By: Selene Bsuh; 12/21/2018 9:22:42 AM Toradol Recorded By: Rachael Barahona; 02/07/2020 7:57:52 PM vancomycin Recorded By: Antonina Mclaughlin; 07/21/2016 2:30:28 PM Current Meds Medication NameInstruction clonazePAM 1 MG Oral TabletTAKE 1 TABLET Daily prn anxiety metroNIDAZOLE 500 MG Oral TabletTake 1 tablet twice daily Piroxicam 20 MG Oral CapsuleTAKE 1 CAPSULE BY MOUTH EVERY DAY traMADol HCl - 50 MG Oral TabletTAKE 1 TABLET EVERY 6 HOURS NEEDED. traZODone HCl - 100 MG Oral Tablettake 2 tablets nightly Trileptal 150 MG Oral TabletTake 1 tablet twice daily Venlafaxine HCl ER 75 MG Oral Capsule Extended Release 24 HourTAKE 1 CAPSULE Daily Physical Exam GENERAL: Alert and oriented to person, place, and time. No acute distress and breathing comfortably; pleasant and cooperative with the examination. HEENT: Head is normocephalic and atraumatic. NECK: Supple, no visible swelling. (more content not included)... Normal [facility] 09-[facility]-2021 XR Thumb AP and Lateral [facility] Work Phone: THUMB, MIN 2 VIEWSon 022 THUMB, MIN 2 VIEWS Patient Name: JANNETH CUEVAS STUDY: THUMB, MIN 2 VIEWS; Right; 09/29/2021 2:27 pm INDICATION: pain M79.646: Thumb pain. ACCESSION NUMBER(S): [id number] ORDERING CLINICIAN: DEDRICK VILLAREAL FINDINGS: X-rays of the right thumb show no acute fracture or dislocation. Electronically signed by: DEDRICK VILLAREAL DO Normal [facility] BLOOD CULTURE, BACTERIALon 0 07-23-2021 BLOOD CULTURE, BACTERIAL PATIENT: JANNETH CUEVAS LOCATION: DANYELLE MURGUIA#: [id number] : 89 AGE: SEX: F ORDERED BY: HORACIO LÓPEZ SOURCE: Blood COLLECTED: 07/23/21 16:08 ANTIBIOTICS AT [facility].: RECEIVED : 07/23/21 21:40 SITE: R E S U L T S BLOOD CULTURE, BACTERIAL FINAL 07/27/21 21:42 No Growth at 1 days No Growth at 2 days No Growth at 3 days NO GROWTH at 4 days - FINAL REPORT Normal [facility] Comment on above: Performed By: #### U RINC #### [facility] [address] [place] [address] BLOOD CULTURE, BACTERIAL PATIENT: JANNETH CUEVAS LOCATION: DANYELLE MURGUIA#: [id number] : 89 AGE: SEX: F ORDERED BY: HORACIO LÓPEZ SOURCE: Blood COLLECTED: 07/23/21 16:08 ANTIBIOTICS AT [facility].: RECEIVED : 07/23/21 21:36 SITE: R E S U L T S BLOOD CULTURE, BACTERIAL FINAL 07/27/21 21:42 No Growth at 1 days No Growth at 2 days No Growth at 3 days NO GROWTH at 4 days - FINAL REPORT Normal [facility] Comment on above: Performed By: #### C RP #### [address] [id number] C Reactive Protein, Serumon 07-23-2021 CRP [Mass/Vol] 3.97 mg/dL Abnormal [facility] Work Phone: Comment on above: REF VALUE< 1.00 C-REACTIVE PROTEINon 022 C-REACTIVE PROTEIN 3.97 mg/dL Abnormal [facility] Comment on above: Result Comment: REF VALUE < 1.00 Performed By: #### C RP #### [address] [phone] CBC AND DIFFERENTIALon 07-23 % AUTOMATED IMMATURE GRAN 0.4 % Normal 0.0 - 0.9 [facility] Comment on above: Result Comment: [place]og[place] ture Granulocyte Count (IG) includes promyelocytes, myelocytes and metamyelocytes but does not include bands. Percent differential counts (%) should be interpreted in the context of the absolute cell counts (cells/L). Performed By: #### C MP #### [address] [id number] Basophils (Bld) [#/Vol] 0.04 10*3/uL Normal 0.00 - 0.10 [facility] Comment on above: Performed By: #### C MP #### [address] [id number] Basophils/100 WBC (Bld) 0.5 % Normal 0.0 - 2.0 [facility] Comment on above: Performed By: #### C MP #### [address] [id number] Eosinophils (Bld) [#/Vol] 0.23 10*3/uL Normal 0.00 - 0.70 [facility] Comment on above: Performed By: #### C MP #### [address] [id number] Eosinophils/100 WBC (Bld) 2.8 % Normal 0.0 - 6.0 [facility] Comment on above: Performed By: #### C MP #### [address] [id number] Erythrocyte distribution width (RBC) [Ratio] 13.2 % Normal 11.5 - 14.5 [facility] Comment on above: Performed By: #### C MP #### [address] [id number] Hematocrit (Bld) [Volume fraction] 37.2 % Normal 36.0 - 46.0 [facility] Comment on above: Performed By: #### C MP #### [address] [id number] Hemoglobin (Bld) [Mass/Vol] 11.7 g/dL Low 12.0 - 16.0 [facility] Comment on above: Performed By: #### C MP #### [address] [id number] Lymphocytes (Bld) [#/Vol] 1.73 10*3/uL Normal 1.20 - 4.80 [facility] Comment on above: Performed By: #### C MP #### [address] [id number] Lymphocytes/100 WBC (Bld) 21.2 % Normal 13.0 - 44.0 [facility] Comment on above: Performed By: #### C MP #### [address] [id number] MCHC (RBC) [Mass/Vol] 31.5 g/dL Low 32.0 - 36.0 [facility] Comment on above: Performed By: #### C MP #### [address] [id number] MCV (RBC) [Entitic vol] 87 fL Normal 80 - 100 [facility] Comment on above: Performed By: #### C MP #### [address] [id number] Monocytes (Bld) [#/Vol] 0.46 10*3/uL Normal 0.10 - 1.00 [facility] Comment on above: Performed By: #### C MP #### [address] [id number] Monocytes/100 WBC (Bld) 5.6 % Normal 2.0 - 10.0 [facility] Comment on above: Performed By: #### C MP #### [address] [id number] Neutrophils (Bld) [#/Vol] 5.68 10*3/uL Normal 1.20 - 7.70 [facility] Comment on above: Performed By: #### C MP #### [address] [id number] Neutrophils/100 WBC (Bld) 69.5 % Normal 40.0 - 80.0 [facility] Comment on above: Performed By: #### C MP #### [address] [id number] Platelets (Bld) [#/Vol] 291 10*3/uL Normal 150 - 450 [facility] Comment on above: Performed By: #### C MP #### [address] [id number] RBC 4.26 x10E12/L Normal 4.00 - 5.20 [facility] Comment on above: Performed By: #### C MP #### [address] [id number] WBC (Bld) [#/Vol] 8.2 10*3/uL Normal 4.4 - 11.3 [facility] Comment on above: Performed By: #### C MP #### [address] [id number] COMPREHENSIVE PANELon 2021 Albumin [Mass/Vol] 4.0 g/dL Normal 3.4 - 5.0 [facility] Comment on above: Performed By: #### C RP #### [address] [id number] ALP [Catalytic activity/Vol] 74 U/L Normal 33 - 110 [facility] Comment on above: Performed By: #### C RP #### [address] [id number] ALT [Catalytic activity/Vol] 20 U/L Normal 7 - 45 [facility] Comment on above: Result Comment: Patricia ents treated with Sulfasalazine may generate falsely decreased results for ALT. Performed By: #### C RP #### [address] [id number] Anion gap [Moles/Vol] 12 mmol/L Normal 10 - 20 [facility] Comment on above: Performed By: #### C RP #### [address] [id number] AST [Catalytic activity/Vol] 17 U/L Normal 9 - 39 [facility] Comment on above: Performed By: #### C RP #### [address] [id number] Bilirubin [Mass/Vol] 0.3 mg/dL Normal 0.0 - 1.2 [facility] Comment on above: Performed By: #### C RP #### [address] [id number] Calcium [Mass/Vol] 8.8 mg/dL Normal 8.6 - 10.3 [facility] Comment on above: Performed By: #### C RP #### [address] [id number] Chloride [Moles/Vol] 102 mmol/L Normal 98 - 107 [facility] Comment on above: Performed By: #### C RP #### [address] [id number] Creatinine [Mass/Vol] 0.68 mg/dL Normal 0.50 - 1.05 [facility] Comment on above: Performed By: #### C RP #### [address] [id number] eGFR FEMALE >90 Normal >90 [facility] Comment on above: Result Comment: CALC ULATIONS OF ESTIMATED GFR ARE PERFORMED USING THE 2020 CKD-EPI STUDY REFIT EQUATION WITHOUT THE RACE VARIABLE FOR THE IDMS-TRACEABLE CREATININE METHODS. https://jasn.asnjournals.org/content/early//ASN.575508 0903 Performed By: #### C RP #### [address] [id number] Glucose [Mass/Vol] 92 mg/dL Normal 74 - 99 [facility] Comment on above: Performed By: #### C RP #### [address] [id number] HCO3 (Bld) [Moles/Vol] 26 mmol/L Normal 21 - 32 [facility] Comment on above: Performed By: #### C RP #### [address] [id number] Potassium [Moles/Vol] 3.7 mmol/L Normal 3.5 - 5.3 [facility] Comment on above: Performed By: #### C RP #### [address] [id number] Protein [Mass/Vol] 6.7 g/dL Normal 6.4 - 8.2 [facility] Comment on above: Performed By: #### C RP #### [address] [id number] Sodium [Moles/Vol] 136 mmol/L Normal 136 - 145 [facility] Comment on above: Performed By: #### C RP #### [address] [id number] Urea nitrogen [Mass/Vol] 11 mg/dL Normal 6 - 23 [facility] Comment on above: Performed By: #### C RP #### [address] [id number] Abdomen and Pelvis with I V Contraston 07-23-2021 CT Abdomen and Pelvis W contrast IV Please click on the link to view the study images Normal [facility] Work Phone: CT Abdomen and Pelvis W contrast IV Normal [facility] Work Phone: Complete Blood Count + Diffe rentialon 07-23-2021 Basophils/100 WBC (Bld) 0.5 % 0.0 - 2.0 [facility] Work Phone: Erythrocyte distribution width (RBC) [Ratio] 13.2 % See Below [facility] Work Phone: Comment on above: Reference Range: 11. 5 - 14.5 Hematocrit (Bld) [Volume fraction] 37.2 % See Below [facility] Work Phone: Comment on above: Reference Range: 36. 0 - 46.0 Hemoglobin (Bld) [Mass/Vol] 11.7 g/dL below low threshold See Below [facility] Work Phone: Comment on above: Reference Range: 12. 0 - 16.0 Lymphocytes/100 WBC (Bld) 21.2 % See Below [facility] Work Phone: Comment on above: Reference Range: 13. 0 - 44.0 MCHC (RBC) [Mass/Vol] 31.5 g/dL below low threshold See Below [facility] Work Phone: Comment on above: Reference Range: 32. 0 - 36.0 MCV (RBC) [Entitic vol] 87 fL 80 - 100 [facility] Work Phone: Monocytes/100 WBC (Bld) 5.6 % 2.0 - 10.0 [facility] Work Phone: Neutrophils/100 WBC (Bld) 69.5 % See Below [facility] Work Phone: Comment on above: Reference Range: 40. 0 - 80.0 Platelets (Bld) [#/Vol] 291 10*3/uL 150 - 450 [facility] Work Phone: RBC (Bld) [#/Vol] 4.26 {x10E12/L} See Below [facility] Work Phone: Comment on above: Reference Range: 4.0 0 - 5.20 WBC (Bld) [#/Vol] 8.2 10*3/uL 4.4 - 11.3 [facility] Work Phone: Complete Blood Count + Differential 0.04 {x10E9/L} See Below [facility] Work Phone: Comment on above: Reference Range: 0.0 0 - 0.10 Complete Blood Count + Differential 0.23 {x10E9/L} See Below [facility] Work Phone: Comment on above: Reference Range: 0.0 0 - 0.70 Complete Blood Count + Differential 0.46 {x10E9/L} See Below [facility] Work Phone: Comment on above: Reference Range: 0.1 0 - 1.00 Complete Blood Count + Differential 1.73 {x10E9/L} See Below [facility] Work Phone: Comment on above: Reference Range: 1.2 0 - 4.80 Complete Blood Count + Differential 5.68 {x10E9/L} See Below [facility] Work Phone: Comment on above: Reference Range: 1.2 0 - 7.70 Complete Blood Count + Differential 2.8 % 0.0 - 6.0 [facility]: Complete Blood Count + Differential 0.4 % 0.0 - 0.9 [facility] Work Phone: Comment on above: Immature Granulocyte Count (IG) includes promyelocytes, myelocytes and metamyelocytes but does not include bands. Percent differential counts (%) should be interpreted in the context of the absolute cell counts (cells/L). Covid 19 Resultson 2 SARS-CoV-2 (COVID-19) RNA KAJAL+probe Ql (Unsp spec) NEGATIVE COVID-19 Test Coronaviruses are common world-wide and are the cause of many common colds. SARS-COV2 is a new coronavirus that began circulating worldwide in 2019 so we are calling it COVID-19. It has been estimated that four out of five patients with COVID-19 will recover at home without the need for medical attention. Symptoms of COVID-19 may include cough, fever, shortness of breath, loss of taste or smell and other flu-like symptoms including chills, sore muscles, sore throat, and headache. Severe illness is more common in older people and people with other health problems such as high blood pressure, obesity, and immune system problems. If the test is positive, you have COVID-19. You will be contacted by the ordering physicians office and instructed to remain on home isolation, in accordance with CDC guidelines. You may also be contacted by the [facility] to see if any of your close contacts may have been exposed to the virus and need to quarantine. If the test is negative, you likely do not have COVID-19 at this time, but you still may have a different illness that can spread to other people (like Influenza, or the Flu) and could still be at risk for getting COVID-19. We recommend that you stay away from other people to limit the spread of illness until your symptoms are improving and you are fever-free for 24 hours without the use of fever lowering medications such as acetaminophen or ibuprofen. No test is 100% accurate so if you are still concerned you may have COVID-19, talk to your doctor about the need to continue to stay away from others. Medicines Unless your provider told you not to use the following: Acetaminophen (Tylenol and others) is generally safe. Anti-inflammatory medications, such as Ibuprofen (Advil or Motrin) or Naproxen (Aleve) can also be used. Hljp-kpx-fmkdywh cough and cold medicines can be used according to the instructions on the package. Some hxna-rbf-hulkeik medicines also contain acetaminophen. Make sure you are not taking more than your recommended dose. For those not hospitalized, there is no specific treatment available for this illness. Antibiotics do not treat Coronaviruses. Follow-Up Follow up with your doctor by scheduling a virtual visit or consider follow-up at one of our urgent care fever clinics. If you are having difficulty breathing, or are very weak and having difficulty standing, this is a medical emergency. Call 911 or have someone take you to the nearest emergency room immediately. If possible, wear a facemask. Additional guidance from the CDC for patients who tested POSITIVE for COVID-19 How to isolate: Isolate yourself in a specific room at home and limit your contact with others. Use a separate bathroom from other members of the household, when possible. Leave home only to get essential medical care. Do not go to work, school or public areas. Avoid using public transportation, ride-sharing, or taxis. Restrict contact with pets and other animals. If you must care for your pet or be around animals while you are sick, wash your hands before and after your interaction and wear a facemask. Make sure that shared spaces in the home have good airflow, such as by an air conditioner or an opened window, weather permitting. Personal Hygiene Procedures: Wear a face mask when in the same room as other people or pets. If a face mask interferes with your breathing, others should wear a mask when sharing space with you. Frequent hand-washing: wash your hands with soap and water for at least 20 seconds. If soap and water are not available, use alcohol-based hand chain person. Avoid touching your eyes, nose, and mouth with unwashed hands. Household Hygiene Procedures: Avoid sharing personal household items such as dishes, glassware, cups, eating utensils, towels or bedding with other people or pets in your home. After use, these items should be washed with soap and hot water. Disinfect all high-touch surfaces every day with antibacterial cleaning solutions such as Lysol wipes, bleach, cleansers, etc. High-touch surfaces include tabletops, doorknobs, bathroom fixtures, toilets, phones, keyboards, tablets and bedside tables. Immediately clean any surfaces that may have blood, poop or body fluids on them, using antibacterial cleaning solutions such as Lysol wipes, bleach, cleansers, etc. If clothing or bedding come into contact with blood, poop or body fluids, they should be washed immediately. Follow the directions on the laundry detergent and clothing labels but hot water is recommended when possible. Stopping home isolation precautions: If possible, consult your doctor before stopping home isolation precautions. According to the CDC, you can discontinue home isolation precautions when you have met both of these criteria: Your fever and respiratory symptoms have been gone for 24 fabi (more content not included)... Normal [facility] Cult, Bloodon 07-23-2021 Bacteria identified Cx Nom (Bld) [facility] Work Phone: Cult, Urineon 07-23-2021 Bacteria identified Cx Nom (U) [facility] Work Phone: HCG,URINEon 07-23-2021 Beta HCG ( test) Ql (U) Canceled Normal [facility] Comment on above: Order Comment: TEST HCG,URINE WAS CANCELLED, 07/23/2021 18:47 DUPLICATE ORDER. Performed By: #### H CGU #### [address] [id number] Beta HCG ( test) Ql (U) Negative Normal Negative [facility] Comment on above: Performed By: #### C RP #### [address] [phone] INFLUENZA A/B, COVID 2019 PC R,SYMPTOMATICon 07-23-2021 INFLUENZA A, PCR Not detected Normal Not Detected [facility] Comment on above: Result Comment: Resp iratory virus testing is performed routinely by PCR for Influenza A/B and RSV. Not Detected results do not preclude Influenza A/B or RSV infections since the adequacy of sample collection or low viral burden may impact the clinical sensitivity of this test method. Performed By: #### C OINP #### [address] [address] [id number] INFLUENZA B, PCR Not detected Normal Not Detected [facility] Comment on above: Result Comment: Resp iratory virus testing is performed routinely by PCR for Influenza A/B and RSV. Not Detected results do not preclude Influenza A/B or RSV infections since the adequacy of sample collection or low viral burden may impact the clinical sensitivity of this test method. Performed By: #### C OINP #### [address] [id number] SARS-CoV-2 (COVID-19) RNA KAJAL+probe Ql (Unsp spec) Not detected Normal Not Detected [facility] Comment on above: Result Comment: . This test has received FDA Emergency Use Authorization (EUA) and has been verified by [facility]. This test is only authorized for the duration of time that circumstances exist to justify the authorization of the emergency use of in vitro diagnostic tests for the detection of SARS-CoV-2 virus and/or diagnosis of COVID-19 infection under section 564(b)(1) of the Act, 21 U.S.C. 360bbb-3(b)(1), unless the authorization is terminated or revoked sooner. [facility] is certified under CLIA-88 as qualified to perform high complexity testing. Testing is performed in the [facility] laboratory located at [address] [place] [id number]. SARS-CoV-2/Flu/RSV Multiplex Test: Fact sheet for providers: https://www.fda.gov/media/562868/download Fact sheet for patients: https://www.fda.gov/media/939157/download Performed By: #### C OINP #### [address] [id number] Lab Specimen Source Nasal, Nasopharyngeal Normal [facility] Comment on above: Performed By: #### C OINP #### [address] [id number] DATE OF SYMPTOM ONSET [YYYYMMDD]? [id number] Normal [facility] Comment on above: Performed By: #### C OINP #### [address] [id number] Date and time of symptom onset [id number] [facility] Work Phone: INFLUENZA A/B, COVID 2019 PCR,SYMPTOMATIC Not detected See Below [facility] Work Phone: Comment on above: Reference Range: Not Detected.This test has received FDA Emergency Use Authorization (EUA) and has been verified by [facility]. This test is only authorized for the duration of time that circumstances exist to justify the authorization of the emergency use of in vitro diagnostic tests for the detection of SARS-CoV-2 virus and/or diagnosis of COVID-19 infection under section 564(b)(1) of the Act, 21 U.S.C. 360bbb-3(b)(1), unless the authorization is terminated or revoked sooner. [facility] is certified under CLIA-88 as qualified to perform high complexity testing. Testing is performed in the [facility] laboratory located at [address] [place], [place] [id number].SARS-CoV-2/Flu/RSV Multiplex Test: Fact sheet for providers: https://www.fda.gov/media/941727/downloadFact sheet for patients: https://www.fda.gov/media/677311/download Reference Range: Not Detected Respiratory virus testing is performed routinely by PCR for Influenza A/B and RSV. Not Detected results do not preclude Influenza A/B or RSV infections since the adequacy of sample collection or low viral burden may impact the clinical sensitivity of this test method. SOURCE: Nasal, Nasop haryngealReference Range: Not Detected Respiratory virus testing is performed routinely by PCR for Influenza A/B and RSV. Not Detected results do not preclude Influenza A/B or RSV infections since the adequacy of sample collection or low viral burden may impact the clinical sensitivity of this test method. LACTATEon 07-23-2021 Lactate [Moles/Vol] 1.1 mmol/L Normal 0.4 - 2.0 [facility] Comment on above: Result Comment: Shara puncture immediately after or during the administration of Metamizole may lead to falsely low results. Testing should be performed immediately prior to Metamizole dosing. Performed By: #### C RP #### [address] [id number] LIPASEon 07-23-2021 Lipase [Catalytic activity/Vol] 22 U/L Normal 9 - 82 [facility] Comment on above: Result Comment: Shara puncture immediately after or during the administration of Metamizole may lead to falsely low results. Testing should be performed immediately prior to Metamizole dosing. T-dmcwlq-u-benzoquinone imine (metabolite of Acetaminophen) will generate erroneously low results in samples for patients that have taken toxic doses of acetaminophen. Performed By: #### L IPAS #### [address] [id number] Laboratory - Chemistry and C hemistry - challengeon 07-23-2021 Albumin BCP dye [Mass/Vol] 4.0 g/dL 3.4 - 5.0 [facility] Work Phone: ALP [Catalytic activity/Vol] 74 U/L 33 - 110 [facility] Work Phone: ALT With P-5'-P [Catalytic activity/Vol] 20 U/L 7 - 45 [facility] Work Phone: Comment on above: Patients treated wit h Sulfasalazine may generate falsely decreased results for ALT. Anion gap [Moles/Vol] 12 mmol/L 10 - 20 [facility] Work Phone: AST With P-5'-P [Catalytic activity/Vol] 17 U/L 9 - 39 [facility] Work Phone: Bilirubin [Mass/Vol] 0.3 mg/dL 0.0 - 1.2 [facility] Work Phone: Calcium [Mass/Vol] 8.8 mg/dL 8.6 - 10.3 [facility] Work Phone: Chloride [Moles/Vol] 102 mmol/L 98 - 107 [facility] Work Phone: CO2 [Moles/Vol] 26 mmol/L 21 - 32 [facility] Work Phone: Creatinine [Mass/Vol] 0.68 mg/dL See Below [facility] Work Phone: Comment on above: Reference Range: 0.5 0 - 1.05 Glucose [Mass/Vol] 92 mg/dL 74 - 99 [facility] Work Phone: Potassium [Moles/Vol] 3.7 mmol/L 3.5 - 5.3 [facility] Work Phone: Protein [Mass/Vol] 6.7 g/dL 6.4 - 8.2 [facility] Work Phone: Sodium [Moles/Vol] 136 mmol/L 136 - 145 [facility] n Work Phone: Urea nitrogen [Mass/Vol] 11 mg/dL 6 - 23 [facility] n Work Phone: Lactate, Levelon 07-23-2021 Lactate [Moles/Vol] 1.1 mmol/L 0.4 - 2.0 [facility] n Work Phone: Comment on above: Venipuncture immedia tely after or during the administration of Metamizole may lead to falsely low results. Testing should be performed immediately prior to Metamizole dosing. Lipase, Serumon 07-23-2021 Lipase [Catalytic activity/Vol] 22 U/L 9 - 82 [facility] n Work Phone: Comment on above: Venipuncture immedia tely after or during the administration of Metamizole may lead to falsely low results. Testing should be performed immediately prior to Metamizole dosing. V-ocxtoq-c-benzoquinone imine (metabolite of Acetaminophen) will generate erroneously low results in samples for patients that have taken toxic doses of acetaminophen. No Panel Informationon 07-23 >90 >90 [facility] n Work Phone: Comment on above: CALCULATIONS OF YUMI MATED GFR ARE PERFORMED USING THE 2020 CKD-EPI STUDY REFIT EQUATION WITHOUT THE RACE VARIABLE FOR THE IDMS-TRACEABLE CREATININE METHODS.https://jasn.asnjournals.org/content/early/ N.5670211521 Provider Note - ED Care [place] sitionon 07-23-2021 Provider Note - ED Care Transition ED Care Transition: Handoff-Received: Handoff Comments Pending radiology study, reevaluation and disposition Chart Review: ED NOTES ED NOTES: I took over care of this patient from Korey López PA-C. We discussed the patient's case including the lab and imaging that is returned so far and his plan. I agree with the plan. For additional details on history, review systems, and physical exam please see Korey's original note. Patient is a 31-year-old female who presents to the emergency department for right lower quadrant abdominal pain. She says that this pain started last night and has been constant, rated 10 out of 10. Patient also has some associated nausea. Denies all other symptoms. Patient was given Zofran, morphine and Dilaudid when the morphine did not help with her pain. I evaluated the patient and introduced myself. Her primary care provider sent her over here to be ruled out for appendicitis. Her vital signs are stable. Patient CT abdomen and pelvis revealed no signs of acute abnormalities including appendicitis. Patient's urinalysis was significant for 3+ leukocyte esterase but no other abnormalities, I do not believe the patient needs antibiotics for urinary tract infection. She is not having any symptoms associated with urinary tract infection. Her urine was negative. Her hemoglobin was 11.7 and MCHC is 31.5. CMP within normal limits. CRP mildly elevated at 3.97. Lipase and lactate within normal limits. Patient tested negative for influenza and COVID. Awaiting the patient's pelvic ultrasound results. Upon reevaluation, patient is resting comfortably and in no apparent distress. I updated her on her lab and imaging results. Ultrasound of the pelvis reveals no acute abnormality. I discussed possible causes of the patient's abdominal discomfort. Patient will be discharged home. I will discharge the patient with a prescription for Zofran. I instructed her on supportive treatment including hydration and NSAIDs as needed. She will follow up with her primary care provider. All question concerns addressed. Reasons to return to the emergency room discussed. Patient verbalized understanding and agreement the treatment plan. RESULTS/VITAL SIGNS RESULTS: Recent Lab Results: I have reviewed these laboratory results: Urinalysis with Culture if Indicated 23-Jul-2021 17:09:00 ResultValue Color, Urine YELLOW Reference Range: STRAW,YELLOW Appearance, Urine HAZY Specific [place], Urine 1.016 pH, Urine 8.0 Protein, Urine NEGATIVE Glucose, Urine NEGATIVE Blood, Urine NEGATIVE Ketones, Urine NEGATIVE Bilirubin, Urine NEGATIVE Urobilinogen, Urine <2.0 Nitrite, Urine NEGATIVE Leukocyte Esterase, Urine LARGE (3+) A Urinalysis, Microscopic 23-Jul-2021 17:09:00 ResultValue White Cells NONE Red Blood Cells NONE Epithelial Cells, Squamous 3 Mucous 1+ Urine Test 23-Jul-2021 17:09:00 ResultValue HCG, Urine NEGATIVE Complete Blood Count + Differential 23-Jul-2021 16:03:00 ResultValue White Blood Cell Count 8.2 Red Blood Cell Count 4.26 HGB 11.7 L HCT 37.2 MCV 87 MCHC 31.5 L PLT 291 RDW-CV 13.2 Neutrophil % 69.5 Immature Granulocytes % 0.4 Lymphocyte % 21.2 Monocyte % 5.6 Eosinophil % 2.8 Basophil % 0.5 Neutrophil Count 5.68 Lymphocyte Count 1.73 Monocyte Count 0.46 Eosinophil Count 0.23 Basophil Count 0.04 Comprehensive Metabolic Panel 23-Jul-2021 16:03:00 ResultValue Glucose, Serum 92 NA 136 K 3.7 CL 102 Bicarbonate, Serum 26 Anion Gap, Serum 12 BUN 11 CREAT 0.68 GFR Female >90 Calcium, Serum 8.8 ALB 4.0 ALKP 74 T Pro 6.7 T Bili 0.3 Alanine Aminotransferase, Serum 20 Aspartate Transaminase, Serum 17 C Reactive Protein, Serum 23-Jul-2021 16:03:00 ResultValue C Reactive Protein, Serum 3.97 A Lipase, Serum 23-Jul-2021 16:03:00 ResultValue Lipase, Serum 22 Lactate, Level 23-Jul-2021 16:02:00 ResultValue Lactate, Level 1.1 Influenza A/B,Covid 2019 PCR,Symptomatic 23-Jul-2021 15:58:00 ResultValue Fluid Source Nasal, Nasopharyngeal Influenza A PCR NOT DETECTED Reference Range: Not Detected Respiratory virus testing is performed routinely by PCR for Influenza A/B and RSV. Not Detected results do not preclude Influenza A/B or RSV infections since the adequacy of sample collection or lo Influenza B PCR NOT DETECTED Reference Range: Not Detected Respiratory virus testing is performed routinely by PCR for Influenza A/B and RSV. Not Detected results do not preclude Influenza A/B or RSV infections since the adequacy of sample collection or lo Coronavirus 2019,PCR NOT DETECTED Reference Range: Not Detected .This test has received FDA Emergency Use Authorization (EUA) and has been verified by [facility]. This test is only authorized for the duration of time that circumsta Date of Symptom O (more content not included)... Normal [facility] Provider Note - ED v3on 07-07 Provider Note - ED v3 Provider Note: Chart Review: ED NOTES ED NOTES: A female patient comes in the emergency department today with complaints of right lower quadrant abdominal pain. States she was sent in by her primary care provider Dr. Kelley. She states this pain started last night. It is a constant pain. Rates it 10 out of 10 on the pain scale. Described as sharp. States has some associated nausea with this. Denies any former abdominal surgeries. States her daughter is concerned about possible appendicitis. For this purpose she is here in the emergency department for evaluation. HISTORY OF PRESENTING ILLNESS JANNETH is a 31 year old Female and was seen by me at 23-Jul-2021 14:46 for a chief complaint of abdominal pain (Sharp RLQ pain with nausea since last night)(1). The historian is the patient. Triage Information: Most recent Vital Sign Value Date Temp (F): 98 07-23-2021 14:02 Temp (C): 36.7 07-23-2021 14:02 Heart Rate (beats/min): 97 07-23-2021 14:02 Respirations (breaths/min): 18 07-23-2021 14:02 SpO2 (%): 97 07-23-2021 14:02 BP Systolic (mm Hg): 189 07-23-2021 14:02 BP Diastolic (mm Hg): 79 07-23-2021 14:02 Presenting Symptoms: nausea. Patient denies diarrhea. Located in the: right lower quadrant area. The quality is deep pain. The context is Unknown. The symptoms started yesterday. The timing is constant. PAST MEDICAL HISTORY ATTESTATION: Medical conditions: None Social history: Not incarcerated PSYCHOSOCIAL SCREENING: NO: concerns for safety at home, feelings of depression, feels like hurting others and feels like hurting self CURRENT OR FORMER SUBSTANCE USE: Tobacco/Nicotine Use: former smoker Alcohol Use: occasionally Drug Use: denies,Drug 2 Use: denies ALLERGIES/INTOLERANCES: Allergy Allergen: vancomycin Type: Drug Reaction: Hives/Urticaria Allergen: erythromycin Type: Drug Reaction: Other HEALTH HISTORY: Medical History Name:Headache Code:R51 Name:Bipolar disorder Code:F31.9 Name:Anxiety disorder Code:F41.9 Name:Medical clearance for psychiatric admission Code:Z00.8 OUTPATIENT MEDICATIONS: Home Medications Review Status for Reconciliation: N/A Med Status: Patient Currently Takes Medications Drug Name: OXcarbazepine 300 mg oral tablet Instructions: 1 tab(s) orally 2 times a day Drug Name: buPROPion 100 mg/12 hours (SR) oral tablet, extended release Instructions: 1 tab(s) orally 2 times a day - (Every 1 day at 09:00, 15:00 ) Drug Name: traZODone 100 mg oral tablet Instructions: 1 tab(s) orally once (at bedtime), As needed, insomnia Drug Name: hydrOXYzine hydrochloride 25 mg oral tablet Instructions: 1 tab(s) orally once a day, As Needed -Anxiety/Agitation Drug Name: metoprolol succinate 25 mg oral tablet, extended release Instructions: 1 tab(s) orally once a day Drug Name: metoprolol succinate 25 mg oral tablet, extended release Instructions: 1 tab(s) orally once a day SIGNIFICANT EVENTS: Past Medical History Description:bipolar Description:depression Description:anxiety REVIEW OF SYSTEMS CONSTITUTIONAL: Negative for: chills and fever CARDIOVASCULAR: Negative for: chest pain RESPIRATORY: Negative for: cough and dyspnea GASTROINTESTINAL: POSITIVE for: abdominal pain and nausea; Negative for: diarrhea; All other systems reviewed and are negative PHYSICAL EXAM CONSTITUTIONAL: Well appearing, well nourished, awake, alert, oriented to person, place, time/situation and in no apparent distress. EYES: EOMI CARDIOVASCULAR: Normal rate, regular rhythm. Heart sounds S1, S2. No murmurs, rubs or gallops. PMI non-displaced. RESPIRATORY: Breath sounds clear and equal bilaterally. GASTROINTESTINAL: Abdominal Exam: (Heelstrike positive) Bowel Sounds Detail: Bowel Sounds: normal Abdominal Tenderness: RIGHT LOWER QUADRANT Abdominal Guarding: RIGHT LOWER QUADRANT GENITOURINARY: CVA Tenderness: no tenderness MUSCULOSKELETAL: Weight Bearing: able NEUROLOGICAL: Alert and oriented, no focal deficits, no motor or sensory deficits. PSYCHIATRIC: Alert and oriented to person, place, time/situation. normal mood and affect. No apparent risk to self or others. CRITICAL CARE RESULTS: Recent Lab Results: I have reviewed these laboratory results: Urinalysis with Culture if Indicated 23-Jul-2021 17:09:00 ResultValue Color, Urine YELLOW Reference Range: STRAW,YELLOW Appearance, Urine HAZY Specific [place], Urine 1.016 pH, Urine 8.0 Protein, Urine NEGATIVE Glucose, Urine NEGATIVE Blood, Urine NEGATIVE Ketones, Urine NEGATIVE Bilirubin, Urine NEGATIVE Urobilinogen, Urine <2.0 Nitrite, Urine NEGATIVE Leukocyte Esterase, Urine LARGE (3+) A Urinalysis, Microscopic 23-Jul-2021 17:09:00 ResultValue White Cells NONE Red Blood Cells NONE Epithelial Cells, Squamous 3 Mucous 1+ Urine Test 23-Jul-2021 17:09:00 ResultValue HCG, Urine NEGATIVE Com (more content not included)... 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 Triage Date/Time: 23-Jul-2021 14:02 ONEL: 3V Pain Rating (0-10): 9 = Severe Pain location: RLQ Vital Signs: Temperature: 98.0F ( 36.7C) taken temporal Blood Pressure: 189/79 Mean: Heart Rate: 97 Respiratory Rate: 18 Pulse Oximetry: 97% on room air, no respiratory support. Height: 5 feet 2.00 inches. 157.4 CM Weight: 275.5 pounds. Calculated 125.0 kg. (stated) Calculated BMI (kg/m2): 50.454 Calculated BSA (m2) 2.34 [place] Coma Scale: Best Eye Response: (E4) spontaneous Best Motor Response: (M6) obeys commands Best Verbal Response: (V5) oriented [place] Score: 15 Patient has homicidal thoughts: no Risk Screens Suicide Risk Screen In the Past Month: Have you wished you were or wished you could go to sleep and not wake up no In the Past Month: Have you had any actual thoughts of killing yourself no In Your Lifetime: Have you ever done anything, started to do anything, or prepared to do anything to end your life no Interventions: [place] Fall Interventions: LOW INTERVENTIONS: *patient oriented to surroundings and call system, * patient/family falls education completed and documented, *patients fall status communicated during bedside handoff, *whiteboard updated, *mode of toileting discussed with patient, *bed in low position with brakes locked, *call light in reach, * non-skid footwear TRAVEL HISTORY Travel History Coronavirus Screening: no exposure or symptoms and COVID positive 14 or more days ago Travel Exposure History: NO travel to International locations in the past 30 days PAIN Pain Scale Used: NATHANAEL Pain Rating (0-10): 9 = Severe Past Medical History: Past Medical History Reviewedyes anxiety: Past Medical History, Active depression: Past Medical History, Active Electronic Signatures: Ludy Hernandez (STAFF N) (Signed 23-Jul-2021 14:06) Entered: Risk Screens, Pain, Arrival, ABCD, Travel History, Chart Review, Scores, Past Medical History Authored: Quick Triage, Risk Screens, Pain, Arrival, ABCD, Travel History, Chart Review, Scores, Past Medical History Last Updated: 23-Jul-2021 14:06 by Ludy Hernandez (STAFF N) Normal [facility] UA MICROSCOPICon 07-23-2021 Mucus Ql (Urine sed) 1+ /LPF Normal [facility] Comment on above: Performed By: #### C RP #### [address] [id number] RBC NONE Normal 0-5 [facility] Comment on above: Performed By: #### C RP #### [address] [id number] SQUAMOUS EPITH. CELLS 3 /HPF Normal [facility] Comment on above: Performed By: #### C RP #### [address] [id number] WBC NONE Normal 0-5 [facility] Comment on above: Performed By: #### C RP #### [address] [id number] URINALYSIS WITH CULTURE IF I NDICATEDon 07-23-2021 Appearance (U) HAZY Normal CLEAR [facility] Comment on above: Performed By: #### U ARFX #### [address] [id number] Bilirubin Ql (U) Negative Normal NEGATIVE [facility] Comment on above: Performed By: #### U ARFX #### [address] [phone] Color (U) YELLOW Normal STRAW,YELLO W [facility] Comment on above: Performed By: #### U ARFX #### [address] [id number] Glucose Ql (U) Negative Normal NEGATIVE [facility] Comment on above: Performed By: #### U ARFX #### [address] [phone] Hemoglobin Ql (U) Negative Normal NEGATIVE [facility] Comment on above: Performed By: #### U ARFX #### [address] [id number] Ketones Ql (U) Negative Normal NEGATIVE [facility] Comment on above: Performed By: #### U ARFX #### [address] [phone] Leukocyte esterase Test strip Ql (U) LARGE (3+) Abnormal NEGATIVE [facility] Comment on above: Performed By: #### U ARFX #### [address] [id number] Nitrite Ql (U) Negative Normal NEGATIVE [facility] Comment on above: Performed By: #### U ARFX #### [address] [id number] pH (U) 8.0 [pH] Normal 5.0 - 8.0 [facility] Comment on above: Performed By: #### U ARFX #### [address] [id number] Protein Ql (U) Negative Normal NEGATIVE [facility] Comment on above: Performed By: #### U ARFX #### [address] [phone] Specific gravity (U) [Rel density] 1.016 Normal 1.005 - 1.035 [facility] Comment on above: Performed By: #### U ARFX #### [address] [id number] Urobilinogen (U) [Mass/Vol] mg/dL Normal 0.0 - 1.9 [facility] Comment on above: Performed By: #### U ARFX #### [address] [phone] Color (U) YELLOW See Below -[facility] Work Phone: Comment on above: Reference Range: STR AW,YELLOW Glucose Ql (U) Negative NEGATIVE [facility] Work Phone: Ketones Ql (U) Negative NEGATIVE [facility] Work Phone: Leukocyte esterase Test strip Ql (U) LARGE (3+) Abnormal NEGATIVE [facility] Work Phone: pH (U) 8.0 [pH] 5.0 - 8.0 [facility] Work Phone: Protein (U) [Mass/Vol] Negative NEGATIVE -[facility] Work Phone: RBC (U) [#/Vol] Negative NEGATIVE [facility] Work Phone: Specific gravity (U) [Rel density] 1.016 1 See Below -[facility] Work Phone: Comment on above: Reference Range: 1.0 05 - 1.035 URINALYSIS WITH CULTURE IF INDICATED Negative NEGATIVE [facility] Work Phone: URINALYSIS WITH CULTURE IF INDICATED <2.0 0.0 - 1.9 [facility] Work Phone: URINALYSIS WITH CULTURE IF INDICATED HAZY CLEAR [facility] Work Phone: URINE CULTURE,BACTERIALon URINE CULTURE,BACTERIAL PATIENT: JANNETH CUEVAS LOCATION: DANYELLE MURGUIA#: [id number] : 89 AGE: SEX: F ORDERED BY: HORACIO LÓPEZ SOURCE: URINE COLLECTED: 07/23/21 17:09 ANTIBIOTICS AT [facility].: RECEIVED : 07/23/21 21:44 SITE: R E S U L T S URINE CULTURE,BACTERIAL FINAL 07/24/21 14:23 MIXED URETHRAL SINA. Normal [facility] Comment on above: Performed By: #### U [facility] #### [facility] [id number] [place] [address] US DUPLX ART/VEIN ABon 07-23 US DUPLX ART/VEIN AB Patient Name: JANNETH CUEVAS STUDY: US PELVIS TRANSABDOMINAL WITH TRANSVAGINAL; 07/23/2021 9:40 pm INDICATION: Right-sided pelvic pain . COMPARISON: Same-day CT abdomen/pelvis 07/23/2021 ACCESSION NUMBER(S): [id number] ORDERING CLINICIAN: HORACIO LÓPEZ TECHNIQUE: Transabdominal and transvaginal sonographic images of the pelvis. Spectral Doppler imaging. FINDINGS: UTERUS: The uterus has a homogeneous echotexture, is anteverted, and measures 8.4 x 2.7 x 3.2 cm. ENDOMETRIUM: The endometrium measures 0.6 cm in thickness. CERVIX: Closed. RIGHT OVARY: The right ovary measures 3.5 x 3.2 x 3 cm, contains a dominant follicle, and appears normal. Normal arterial and venous color and spectral Doppler flow. No suspicious adnexal mass is seen. LEFT OVARY: The left ovary measures 2.7 x 2.1 x 2.8 cm and appears normal. Normal arterial and venous color and spectral Doppler flow. No suspicious adnexal mass is seen. FLUID: No free fluid. IMPRESSION: Unremarkable pelvic ultrasound. Transvaginal images confirm the above. Electronically signed by: BARRY RECINOS MD Normal [facility] US PELVIS TRANSABDOMINAL WIT H TRANSVAGINALon 07-23-2021 US PELVIS TRANSABDOMINAL WITH TRANSVAGINAL Patient Name: JANNETH CUEVAS STUDY: US PELVIS TRANSABDOMINAL WITH TRANSVAGINAL; 07/23/2021 9:40 pm INDICATION: Right-sided pelvic pain . COMPARISON: Same-day CT abdomen/pelvis 07/23/2021 ACCESSION NUMBER(S): [id number] ORDERING CLINICIAN: HORACIO LÓPEZ TECHNIQUE: Transabdominal and transvaginal sonographic images of the pelvis. Spectral Doppler imaging. FINDINGS: UTERUS: The uterus has a homogeneous echotexture, is anteverted, and measures 8.4 x 2.7 x 3.2 cm. ENDOMETRIUM: The endometrium measures 0.6 cm in thickness. CERVIX: Closed. RIGHT OVARY: The right ovary measures 3.5 x 3.2 x 3 cm, contains a dominant follicle, and appears normal. Normal arterial and venous color and spectral Doppler flow. No suspicious adnexal mass is seen. LEFT OVARY: The left ovary measures 2.7 x 2.1 x 2.8 cm and appears normal. Normal arterial and venous color and spectral Doppler flow. No suspicious adnexal mass is seen. FLUID: No free fluid. IMPRESSION: Unremarkable pelvic ultrasound. Transvaginal images confirm the above. Electronically signed by: BARRY RECINOS MD Normal [facility] Ultrasound Duplex Abd/Pel/Sc rotal Cmpton 07-23-2021 Ultrasound Duplex Abd/Pel/Scrotal Cmpt Normal [facility] Work Phone: Urinalysis, Microscopicon Urinalysis, Microscopic 1+ [facility] Work Phone: Urinalysis, Microscopic 3 {/HPF} [facility] Work Phone: Urinalysis, Microscopic NONE 0-5 [facility] Work Phone: Urine Teston 07-23 HCG ( test) Ql (U) Canceled [facility] Work Phone: HCG ( test) Ql (U) Negative Negative [facility] Work Phone: Radiologyon 02-26-2021 XR Hand 3 Views Please click on the link to view the study images Normal [facility] Work Phone: Tobacco Screening.on 021 Tobacco use status [facility] b) No [facility] Work Phone: Tobacco Screening. Large [facility] Work Phone: Coding Summary.on 01-04-2019 Coding Summary. CODING DATE: 019 FINAL [facility] STATUS: Home (Routine DC) PAYOR: [place] ADMIT DX: REASON FOR VISIT DX: Z01.419 Encounter for gynecological examination (general) (routine) without abnormal findings FINAL DX: PRINCIPAL: Z01.419 Encounter for gynecological examination (general) (routine) without abnormal findings SECONDARY: PROCEDURES DOCTOR NAME DATE NOTE: The code number assigned matches the documented diagnosis and / or procedure in the patient's chart. However, the narrative phrase printed from the coding software may appear abbreviated, or result in slightly different terminology. Coded By: Sandra Krishnan CphT Date Saved: 01/04/2019 02:23 pm Normal [facility] Gynecology Office/Clinic Not vick 12-28-2018 Gynecology Office/Clinic Note Chief Complaint Annual would like control HPI Staff 28 Years year old patient here for annual exam. Last pap Patient states 2 yrs ago at [facility]. Last mammogram n/a. Last colonoscopy Patient states 7yrs ago [facility]. Method of contraception none. History of Present Illness Agree with above staff HPI. New nulliparous female here for annual. No hx abnormal paps. Denies need for STD testing today. She would like to discuss control options. Either wants pill or depo. She is using condoms for contraception. She has no idea when her periods are coming, can be less than 30 days to 50 days apart. They are still heavy and painful and sometimes only last a couple of days. Menarche age 9. Started on control pills at age 12 d/t irregular, heavy, painful periods. She was on loestrin. Eventually she didn't have periods at all with it. Last doctor told her to stop taking it for a while twice per year to have a period. Maternal aunt had breast cancer, dx early 40s. Paternal grandmother had breast cancer in late 70s. Works at [employer] in [employer]. Review of Systems PHQ Score Initial Depression Screen Score: 2 ROS ? Provider Constitutional: No fever, No chills, No sweats, No weakness. No Weight change; No fatigue. Skin: No rash, No lesions. ENMT: No ear pain, No sore throat, No congestion. Respiratory: No shortness of breath, No cough, No orthopnea, No wheezing. Cardiovascular: No chest pain, No palpitations, No peripheral edema. Gastrointestinal: No nausea, No vomiting, No diarrhea, No GI bleeding. Genitourinary: No dysuria, No hematuria, No discharge, No pain. Gynecology: No abnormal vaginal discharge, No vaginal itching/burning, No vaginal dryness, Yes painful periods, Yes abnormal bleeding, No pelvic pain, No painful intercourse Breast: No breast pain, No skin changes, No masses/lumps, No nipple discharge. Musculoskeletal: No back pain, No trauma. Neurological: No headache, No dizziness, No numbness, No weakness. Psychiatric: No sleeping problems, No irritability, No mood swings/depression. Heme/Lymph: No bleeding tendency, No bruising tendency, No petechiae, No swollen. Physical Exam Vitals & Measurements BP: 122/66 HT: 162 cm WT: 112.4 kg BMI: 42.83 General Exam: Constitutional: alert, no acute distress, well hydrated, well developed, well nourished. Skin: normal color, no rashes, no lesions, no unusual bruising. Head: atraumatic, normocephalic. Eyes: EOM intact, no nystagmus, no icterus. Ears: no external deformities, gross hearing intact. Mouth: normal dentition Breasts: skin/areolae normal, no masses, no nipple discharge, no erythema/warmth/tendernes s, axillae normal. Cardiovascular: RRR, no murmurs, no gallops, no edema. Respiratory: no respiratory distress. Abdomen: nondistended, nontender, no guarding, no masses. Spine: normal mobility, no deformities. Extremities: no deformities, no clubbing, no cyanosis, no edema. Neurol: normal, cranial nn II-XII grossly intact, sensation intact, motor intact, station & gait normal. Psych: oriented to all spheres, affect and mood appropriate, normal interaction, good eye contact. Pelvic Exam: Vulva: normal appearance, normal hair distribution, no lesions or masses. Urethra: normal, no masses, non-tender, no discharge. Bladder: normal, non-tender, non-distended. Vagina: normal, rugated, physiologic discharge, no lesions, no masses, adequate pelvic support. Cervix: normal, midposition, no motion tenderness, no lesions. Uterus: smooth, mobile, non-tender, adequate support. Adnexa: normal, no masses, mobile, nontender. Assessment/Plan 1. Visit for routine top steep tender exam (Z01.419: Encounter for gynecological examination (general) (routine) without abnormal findings) Pap obtained today. Recommend monthly self breast exams. Ordered: Initial Comp Preventive Med 18 to 39 [place] [address] PAP [id number] IG w/rflx HPV 2. Contraception management (Z30.9: Encounter for contraceptive management, unspecified) Discussed proper pill use: when to start, what to do with missed pills, how antibiotics affect pills, side effects and remedies, ACHES. Ordered: Initial Comp Preventive Med 18 to 39 [place] [address] 3. Dysmenorrhea (N94.6: Dysmenorrhea, unspecified) Ordered: Initial Comp Preventive Med 18 to 39 years [place] [address] Orders: ethinyl estradiol-norethindrone, 1 tab(s), Oral, Daily, 84 tab(s), Refill(s) 4, [facility] Follow-up With When Contact Information Anay CALIX In [address] [place] [address]- Additional Instructions: Problem List/Past Medical History Ongoing No qualifying data Historical No qualifying data Procedure/Surgical History nidia on right leg. Medications Depakote ER 500 mg Tab-ER, 500 mg= 1 tab(s), Oral, Daily Loestrin 21 06/25 Tab, 1 tab(s), Oral, Daily, 4 refills Topamax traZODONE 150 mg Tab, 150 mg= 1 tab(s), Oral, Once a day (at bedtime) Allergies erythromycin (Dry heaves) vancomycin (Hives) Social History Alcohol Current, 1-2 times per year, 12/28/2018 Tobacco Former smoker, quit more than 30 days ago Tobacco Use:. Cigarettes, 12/28/2018 Family History Clotting disorder: Grandparent. Primary malignant neoplasm of female breast: Aunt and Grandparent. Normal [facility] Comment on above: Result Comment: Elec tronically Signed By: Anay CALIX\.liana\Date and Time Signed: 12/28/18 15:38 EDT XR chest 2V*on 10-05-2018 XR chest 2V* [facility] Main [place] [address] [place] [address] XRay Report Signed Patient: Janneth Cuevas MR#: [id number] : 1990 Acct:[id number] Age/Sex: 28 / F ADM Date: 10/05/18 Loc: [id number] Room: Type: [facility] Attending Dr: Dayday Adams PA-C Ordering Provider: Dayday Adams Date of Service: 10/05/18 XR/XR chest 2V*: Cough Copies to: DEBORA Nieves Calley PA Chest 10/05/2018. CLINICAL DATA: Chest pain. Cough and congestion. FINDINGS: 2 views of the chest were obtained. No prior study is available for comparison. The cardiac silhouette is normal in size. The pulmonary vasculature is within normal limits. There are localized reticulonodular densities in the mid to upper right lung on the frontal view. There is also mild atelectasis in the lower left lung. No pneumothorax or pleural effusion is seen. XR/XR chest 2V* IMPRESSION: Localized reticulonodular densities in the mid to upper right lung, likely infectious or inflammatory. Mild atelectasis in the lower left lung. Impression dictated by: Skinny Cintron Jr., M.D.10/05/2018 2:56 PM Dictation Location: [facility] Transcribed By: [facility] 10/05/18 7040 Dictated By: Skinny Cintron MD 10/05/18 1453 Signed By: 10/05/18 1456 Normal [facility] XR FOOT RIGHT (MIN 3 VIEWS)o n 03-09-2018 XR FOOT RIGHT (MIN 3 VIEWS) EXAMINATION: XR FOOT RIGHT (MIN 3 VIEWS)CLINICAL HISTORY: S90.31XD Contusion of right foot, subsequent encounter [id number]: 03/28/2017FINDINGS: No fracture or periosteal reaction is identified. Joint spaces are maintained. There is lateral hindfoot soft tissue swelling. If there is clinical suspicion of radiographically occult fracture, e.g. stress fracture, then follow-up radiographs may be obtained in approximately 7-10 days to evaluate for posttraumatic periosteal reaction.IMPRESSION: NEGATIVE RIGHT FOOT RADIOGRAPHS.Interpreted by:GLYNN Monsivaisigned by:Dylon Chavez MD10/4/18Final result Normal [facility] US EXTREMITY LEFT NON VASC L IMITEDon 12-06-2017 US EXTREMITY LEFT NON VASC LIMITED EXAMINATION: Left ultrasound extremity nonvascular, left axillaCLINICAL HISTORY: Left axillary lump for one month. Patient was on antibiotics which did not resolve abnormality.COMPARISONS: None available.FINDINGS: Ultrasound of left axilla was obtained. There is no evidence of axillary mass, fluid collection or enlarged lymph node.IMPRESSION: NEGATIVE LIMITED SONOGRAM OF LEFT AXILLA.Interpreted by:GLYNN Cliffordigned by:Eliz Mills MD7/3/18Final result Normal [facility] CT ABDOMEN PELVIS WO CONTRAS Ton 10-25-2017 CT ABDOMEN PELVIS WO CONTRAST CT of the Abdomen and Pelvis without intravenous contrast mediumHistory: Right lower quadrant pain, right flank pain for several weeks. Nausea and vomiting for 2 daysTechnical Factors:CT imaging of the abdomen and pelvis were obtained and formatted as 5 mm contiguous axial images from the domes of the diaphragm to the symphysis pubis. Sagittal and coronal reconstructions were also obtained.Oral contrast medium: GivenIntravenous contrast medium: Not given.Comparison: None.Findings:Lungs: Lung bases are clear.Liver: Normal in size, shape, and attenuation. Bile Ducts: Normal in caliber. Gallbladder: No stones or wall thickening. Pancreas: Normal without masses, cysts, ductal dilatation or calcification. Spleen: Normal in size without masses or calcifications. No splenules. Kidneys: Normal in size. No hydronephrosis, masses, or stones. Adrenals: Normal. Small bowel: Normal in caliber. Appendix: Not visualized. No pericecal fluid collections or inflammatory changes demonstrated. Copious stool in cecum and ascending colon.Colon: Normal in caliber. Peritoneum: No ascites, free air, or fluid collections. Vessels: Aorta normal in course and caliberLymph nodes: Retroperitoneal: No enlarged retroperitoneal lymph nodes. Mesenteric: No enlarged mesenteric lymph nodes. Pelvic: No enlarged pelvic lymph nodes.Bladder: Partially decompressed.Reproductive organs: No pelvic masses. Abdominal Wall: 9.5 mm fat-containing periumbilical anterior abdominal wall defect.Bones: No bone lesions. No degenerative changes. No post operative changes. IMPRESSION: Appendix not identified. However, no inflammatory change found in the pericecal region.Constipation.Periu mbilical hernia.All CT scans at this facility use dose modulation, iterative reconstruction, and/or weight based dosing when appropriate to reduce radiation dose to as low as reasonably achievable.Interpreted by:GLYNN Bonillaigned by:Toni Frausto MD10/25/inal result Normal [facility] Vital Signs Date Time Vital Sign Value Performing Clinician Earli duncan 11-16-2023 12:36-0400 Body mass index (BMI) [Ratio] 49.63 kg/m2 [employer] Work Phone: [facility] 11-16-2023 12:36-0400 Body temperature 97.7 [degF] [employer] Work Phone: [facility] 11-16-2023 12:36-0400 Body weight 127.05 kg [employer] Work Phone: [facility] 11-16-2023 12:36-0400 Diastolic blood pressure 71 mm[Hg] [employer] Work Phone: [facility] 11-16-2023 12:36-0400 Heart rate 87 /min [employer] Work Phone: [facility] 11-16-2023 12:36-0400 Respiratory rate 16 /min [employer] Work Phone: [facility] 11-16-2023 12:36-0400 SaO2% (BldA) [Mass fraction] 97 % Anay Cantu DO Work Phone: [facility] 11-16-2023 12:36-0400 Systolic blood pressure 102 mm[Hg] Anay Cantu DO Work Phone: [facility] 10-05-2023 11:41-0400 Body mass index (BMI) [Ratio] 49.33 kg/m2 Tana Marques MD Work Phone: [facility] 10-05-2023 11:41-0400 Body temperature 98.6 [degF] Tana Marques MD Work Phone: [facility] 10-05-2023 11:41-0400 Body weight 126.28 kg Tana Marques MD Work Phone: [facility] 10-05-2023 11:41-0400 Diastolic blood pressure 76 mm[Hg] Tana Marques MD Work Phone: [facility] 10-05-2023 11:41-0400 Heart rate 70 /min Tana Marques MD Work Phone: [facility] 10-05-2023 11:41-0400 SaO2% (BldA) [Mass fraction] 98 % Tana Marques MD Work Phone: [facility] 10-05-2023 11:41-0400 Systolic blood pressure 113 mm[Hg] Tana Marques MD Work Phone: [facility] 07-26-2023 09:06-0500 Body mass index (BMI) [Ratio] 50.07 kg/m2 Mala Torres MD Work Phone: [facility] 07-26-2023 09:06-0500 Body temperature 97.2 [degF] Mala Torres MD Work Phone: [facility] 07-26-2023 09:06-0500 Body weight 128.19 kg Mala Torres MD Work Phone: [facility] 07-26-2023 09:06-0500 Diastolic blood pressure 86 mm[Hg] Mala Torres MD Work Phone: [facility] 07-26-2023 09:06-0500 Heart rate 72 /min Mala Torres MD Work Phone: [facility] 07-26-2023 09:06-0500 Respiratory rate 18 /min Mala Torres MD Work Phone: [facility] 07-26-2023 09:06-0500 Systolic blood pressure 131 mm[Hg] Mala Torres MD Work Phone: [facility] 06-07-2023 09:19-0500 Body height 160 cm Opal Anglin TECHNOLOGY SALES CONSULTANT[employer]GER Work Phone: [facility] 06-07-2023 09:19-0500 Body mass index (BMI) [Ratio] 50.13 kg/m2 Opal Anglin TECHNOLOGY SALES CONSULTANT-VIAL GAUGER Work Phone: [facility] 06-07-2023 09:19-0500 Body weight 128.37 kg Opal Anglin TECHNOLOGY SALES CONSULTANT-VIAL GAUGER Work Phone: [facility] 06-07-2023 09:19-0500 Diastolic blood pressure 74 mm[Hg] Opal Anglin TECHNOLOGY SALES CONSULTANT-VIAL GAUGER Work Phone: [facility] 06-07-2023 09:19-0500 Heart rate 74 /min Opal Anglin TECHNOLOGY SALES CONSULTANT-VIAL GAUGER Work Phone: [facility] 06-07-2023 09:19-0500 SaO2% (BldA) [Mass fraction] 97 % Opal Anglin TECHNOLOGY SALES CONSULTANT-VIAL GAUGER Work Phone: [facility] 06-07-2023 09:19-0500 Systolic blood pressure 136 mm[Hg] Opal Anglin TECHNOLOGY SALES CONSULTANT-VIAL GAUGER Work Phone: [facility] 05-23-2023 15:07-0500 Body mass index (BMI) [Ratio] 51.11 kg/m2 Heather Yi MD Work Phone: [facility] 05-23-2023 15:07-0500 Body temperature 97.7 [degF] Heather Yi MD Work Phone: [facility] 05-23-2023 15:07-0500 Body weight 130.86 kg Heather Yi MD Work Phone: [facility] 05-23-2023 15:07-0500 Diastolic blood pressure 78 mm[Hg] Heather Yi MD Work Phone: [facility] 05-23-2023 15:07-0500 Heart rate 84 /min Heather Yi MD Work Phone: [facility] 05-23-2023 15:07-0500 Respiratory rate 14 /min Heather Yi MD Work Phone: [facility] 05-23-2023 15:07-0500 SaO2% (BldA) [Mass fraction] 95 % Heather Yi MD Work Phone: [facility] 05-23-2023 15:07-0500 Systolic blood pressure 116 mm[Hg] Heather Yi MD Work Phone: [facility] 05-13-2023 09:56-0500 Body height 160 cm Dino Hsieh MD Work Phone: [facility] 05-13-2023 09:56-0500 Body mass index (BMI) [Ratio] 49.78 kg/m2 Dino Hsieh MD Work Phone: [facility] 05-13-2023 09:56-0500 Body weight 127.46 kg Dino Hsieh MD Work Phone: [facility] 05-13-2023 09:56-0500 Diastolic blood pressure 77 mm[Hg] Dino Hsieh MD Work Phone: [facility] 05-13-2023 09:56-0500 Heart rate 69 /min Dino Hsieh MD Work Phone: [facility] 05-13-2023 09:56-0500 Systolic blood pressure 133 mm[Hg] Dino Hsieh MD Work Phone: [facility] 03-31-2023 13:44-0400 Body height 160 cm Anay Mesko DO Work Phone: [facility] 03-31-2023 13:44-0400 Body mass index (BMI) [Ratio] 51.02 kg/m2 Anay Mesko DO Work Phone: [facility] 03-31-2023 13:44-0400 Body temperature 97.9 [degF] Anay Mesko DO Work Phone: [facility] 03-31-2023 13:44-0400 Body weight 130.64 kg Anay Mesko DO Work Phone: [facility] 03-31-2023 13:44-0400 Diastolic blood pressure 84 mm[Hg] Anay Mesko DO Work Phone: [facility] 03-31-2023 13:44-0400 Heart rate 72 /min Anay Mesko DO Work Phone: [facility] 03-31-2023 13:44-0400 Respiratory rate 14 /min Anay Mesko DO Work Phone: [facility] 03-31-2023 13:44-0400 SaO2% (BldA) [Mass fraction] 97 % Anay Mesko DO Work Phone: [facility] 03-31-2023 13:44-0400 Systolic blood pressure 130 mm[Hg] Anay Mesko DO Work Phone: [facility] 03-16-2023 13:30-0400 Body mass index (BMI) [Ratio] 49.83 kg/m2 Lucia Romero MD Work Phone: [facility] 03-16-2023 13:30-0400 Body temperature 97.59 [degF] Lucia Romero MD Work Phone: [facility] 03-16-2023 13:30-0400 Body weight 127.6 kg Lucia Romero MD Work Phone: [facility] 03-16-2023 13:30-0400 Diastolic blood pressure 78 mm[Hg] Lucia Romero MD Work Phone: [facility] 03-16-2023 13:30-0400 Heart rate 68 /min Lucia Romero MD Work Phone: [facility] 03-16-2023 13:30-0400 SaO2% (BldA) [Mass fraction] 98 % Lucia Romero MD Work Phone: [facility] 03-16-2023 13:30-0400 Systolic blood pressure 116 mm[Hg] Lucia Romero MD Work Phone: [facility] 02-22-2023 09:07-0400 Body height 160 cm Anaynatividad Cantu DO Work Phone: [facility] 02-22-2023 09:07-0400 Body mass index (BMI) [Ratio] 50.33 kg/m2 Anay Mesko DO Work Phone: [facility] 02-22-2023 09:07-0400 Body temperature 98.01 [degF] Anay Baileyko DO Work Phone: [facility] 02-22-2023 09:07-0400 Body weight 128.87 kg Anay Cantu DO Work Phone: [facility] 02-22-2023 09:07-0400 Diastolic blood pressure 81 mm[Hg] Anay Cantu DO Work Phone: [facility] 02-22-2023 09:07-0400 Heart rate 79 /min Anay Cantu DO Work Phone: [facility] 02-22-2023 09:07-0400 Respiratory rate 16 /min Anay Cantu DO Work Phone: [facility] 02-22-2023 09:07-0400 SaO2% (BldA) [Mass fraction] 97 % Anay Cantu DO Work Phone: [facility] 02-22-2023 09:07-0400 Systolic blood pressure 116 mm[Hg] Anay Cantu DO Work Phone: [facility] 07-22-2022 08:24-0500 Body height 160.02 cm Tenisha Whites Work Phone: [facility] Work Phone: 07-22-2022 08:24-0500 Body mass index (BMI) [Ratio] 49.33 kg/m2 Tenisha Whites Work Phone: [facility] Work Phone: 07-22-2022 08:24-0500 Body surface area Derived from formula 2.23 m2 Tenisha Whites Work Phone: [facility] Work Phone: 07-22-2022 08:24-0500 Body weight 126.33 kg Tenisha Whites Work Phone: [facility] Work Phone: 07-22-2022 08:24-0500 Diastolic blood pressure 60 mm[Hg] Tenisha Stevenson Rachelmeeras Work Phone: [facility] Work Phone: 07-22-2022 08:24-0500 Heart rate 74 /min Tenisha Stevenson Zahiras [facility] Work Phone: 07-22-2022 08:24-0500 Respiratory rate 16 /min Tenisha Brown Work Phone: [facility] Work Phone: 07-22-2022 08:24-0500 SaO2% (BldA) [Mass fraction] 97 % Tenisha Brown [facility] Work Phone: 07-22-2022 08:24-0500 Systolic blood pressure 110 mm[Hg] Ten[facility] Brown [facility] Work [facility]: 07-14-2022 13:29-0500 Body height 160.02 cm [facility] Work Phone: 07-14-2022 13:29-0500 Body mass index (BMI) [Ratio] 50.04 kg/m2 Tenisha Whites [facility] Work [facility]: 07-14-2022 13:29-0500 Body surface area Derived from formula 2.24 m2 Tenisha Brown [facility] Work [facility]: 07-14-2022 13:29-0500 Body weight 128.14 kg Tenisha Whites [facility] Work [facility]: 07-14-2022 13:29-0500 Diastolic blood pressure 62 mm[Hg] Tenisha Whites [facility] Work Phone: 07-14-2022 13:29-0500 Heart rate 78 /min Tenisha Brown Work Phone: [facility] Work Phone: 07-14-2022 13:29-0500 Respiratory rate 16 /min Tenisha Brown Work Phone: [facility] Work Phone: 07-14-2022 13:29-0500 SaO2% (BldA) [Mass fraction] 97 % Tenisha Whites Work Phone: [facility] Work Phone: 07-14-2022 13:29-0500 Systolic blood pressure 116 mm[Hg] Tenisha Brown Work Phone: [facility] Work Phone: 12-16-2021 10:04-0400 Body height 160.02 cm Tenisha Whites Work Phone: [facility] Work Phone: 12-16-2021 10:04-0400 Body mass index (BMI) [Ratio] 51.39 kg/m2 Tenisha Whites [facility] Work Phone: 12-16-2021 10:04-0400 Body surface area Derived from formula 2.27 m2 Tenisha Whites Work Phone: [facility] Work Phone: 12-16-2021 10:04-0400 Body weight 131.6 kg Tenisha Whites Work Phone: [facility] Work Phone: 12-16-2021 10:04-0400 Diastolic blood pressure 64 mm[Hg] [facility] Work Phone: 12-16-2021 10:04-0400 Heart rate 84 /min Tenisha Brown Work Phone: [facility] Work Phone: 12-16-2021 10:04-0400 Respiratory rate 14 /min Tenisha Brown Work Phone: [facility] Work Phone: 12-16-2021 10:04-0400 SaO2% (BldA) [Mass fraction] 98 % Tenisha Brown Work Phone: [facility] Work Phone: 12-16-2021 10:04-0400 Systolic blood pressure 112 mm[Hg] Tenisha Brown Work Phone: [facility] Work Phone: 10-20-2021 10:57-0400 Body height 160.02 cm Tenisha Brown Work Phone: [facility] Work Phone: 10-20-2021 10:57-0400 Body mass index (BMI) [Ratio] 51.73 kg/m2 Tenisha Brown Work Phone: [facility] Work Phone: 10-20-2021 10:57-0400 Body surface area Derived from formula 2.27 m2 Tenisha Whites Work Phone: [facility] Work Phone: 10-20-2021 10:57-0400 Body temperature 97.5 [degF] Tenisha Whites Work Phone: [facility] Work Phone: 10-20-2021 10:57-0400 Body weight 132.45 kg Tenisha Stevenson Escmeeras Work Phone: [facility] Work Phone: 10-20-2021 10:57-0400 Diastolic blood pressure 60 mm[Hg] Tenisha Stevenson Escolas Work Phone: [facility] Work Phone: 10-20-2021 10:57-0400 Heart rate 87 /min Tenisha Stevenson Escolas Work Phone: [facility] Work Phone: 10-20-2021 10:57-0400 Respiratory rate 16 /min Tenisha Stevenson Escolas Work Phone: [facility] Work Phone: 10-20-2021 10:57-0400 SaO2% (BldA) [Mass fraction] 98 % Tenisha Stevenson Escolas Work Phone: [facility] Work Phone: 10-20-2021 10:57-0400 Systolic blood pressure 110 mm[Hg] Tenisha Whites Work Phone: [facility] Work Phone: 07-24-2021 00:57-0500 Diastolic blood pressure 71 mm[Hg] Tenisha Whites Other Phone: [facility] 07-24-2021 00:57-0500 Heart rate 71 /min Tenisha Whites Other Phone: [facility] 07-24-2021 00:57-0500 Respiratory rate 16 /min Tenisha Stevenson Escolas Work Phone: [facility] Work Phone: 07-24-2021 00:57-0500 SaO2% (BldA) [Mass fraction] 96 % Tenisha Zahiras Other Phone: [facility] 07-24-2021 00:57-0500 Systolic blood pressure 118 mm[Hg] Tenisha Avilaolas Other Phone: [facility] 07-23-2021 16:02-0500 Body height 157.4 cm Tenisha Avilaolas Other Phone: [facility] 07-23-2021 16:02-0500 Body temperature 98.06 [degF] Tenisha Avilaolas Other Phone: [facility] 07-23-2021 16:02-0500 Body weight 125 kg Tenisha Avilaolas Other Phone: [facility] 07-23-2021 12:00-0500 Body height 160.02 cm Tenisha Stevenson Escolas Work Phone: [facility] Work Phone: 07-23-2021 12:00-0500 Body mass index (BMI) [Ratio] 51.02 kg/m2 Tenisha Stevenson Escolas Work Phone: [facility] Work Phone: 07-23-2021 12:00-0500 Body surface area Derived from formula 2.26 m2 Tenisha Stevenson Escolas Work Phone: [facility] Work Phone: 07-23-2021 12:00-0500 Body temperature 97 [degF] Tenisha Stevenson Escolas Work Phone: [facility] Work Phone: 07-23-2021 12:00-0500 Body weight 130.64 kg Tenisha Stevenson Escolas Work Phone: [facility] Work Phone: 07-23-2021 12:00-0500 Diastolic blood pressure 76 mm[Hg] Tenisha Elva Escolas Work Phone: [facility] Work Phone: 07-23-2021 12:00-0500 Heart rate 100 /min Tenisha Brown [facility] Phone: [facility] Work Phone: 07-23-2021 12:00-0500 SaO2% (BldA) [Mass fraction] 99 % Tenisha Whites Work Phone: [facility] Work Phone: 07-23-2021 12:00-0500 Systolic blood pressure 110 mm[Hg] Tenisha Brown Work Phone: [facility] Work Phone: 06-18-2021 11:46-0500 Body height 160.02 cm Tenisha Brown Work Phone: [facility] Work Phone: 06-18-2021 11:46-0500 Body mass index (BMI) [Ratio] 49.42 kg/m2 Tenisha Brown Work Phone: [facility] Work Phone: 06-18-2021 11:46-0500 Body surface area Derived from formula 2.23 m2 Tenisha Brown Work Phone: [facility] Work Phone: 06-18-2021 11:46-0500 Body temperature 206.6 [degF] Tenisha Whites Work Phone: [facility] Work Phone: 06-18-2021 11:46-0500 Body weight 126.55 kg Tenisha Whites Work Phone: [facility] Work Phone: 06-18-2021 11:46-0500 Diastolic blood pressure 76 mm[Hg] Tenisha Whites Work Phone: [facility] Work Phone: 06-18-2021 11:46-0500 Heart rate 97 /min Tenisha Whites Work Phone: [facility] Work Phone: 06-18-2021 11:46-0500 Respiratory rate 16 /min Tenisha Whites Work Phone: [facility] Work Phone: 06-18-2021 11:46-0500 SaO2% (BldA) [Mass fraction] 98 % Tenisha Whites Work Phone: [facility] Work Phone: 06-18-2021 11:46-0500 Systolic blood pressure 118 mm[Hg] Tenisha Whites Work Phone: [facility] Work Phone: 02-26-2021 09:48-0400 Body height 160.02 cm Tenisha Whites Work Phone: [facility] Work Phone: 02-26-2021 09:48-0400 Body mass index (BMI) [Ratio] 47.97 kg/m2 Tenisha Whites Work Phone: [facility] Work Phone: 02-26-2021 09:48-0400 Body surface area Derived from formula 2.2 m2 Tenisha Whites Work Phone: [facility] Work Phone: 02-26-2021 09:48-0400 Body temperature 207.68 [degF] Tenisha Whites Work Phone: [facility] Work Phone: 02-26-2021 09:48-0400 Body weight 122.83 kg Tenisha Stevesnon Rachelrico Work Phone: [facility] Work Phone: 02-26-2021 09:48-0400 Diastolic blood pressure 80 mm[Hg] Tenisha Stevenson Stephanie Work Phone: [facility] Work Phone: 02-26-2021 09:48-0400 Heart rate 86 /min Tenisha Brown Work Phone: [facility] Work Phone: 02-26-2021 09:48-0400 SaO2% (BldA) [Mass fraction] 98 % Tenisha Elva Stephanie Work Phone: [facility] Work Phone: 02-26-2021 09:48-0400 Systolic blood pressure 108 mm[Hg] Tenisha Brown Work Phone: [facility] Work Phone: 02-07-2020 20:57-0400 BMI (Body Mass Index) 45.7 kg/m2 Figueroa Martinez [facility] Work Phone: 02-07-2020 20:57-0400 Body Temperature 97.1 [degF] Figueroa Martinez [facility] Work Phone: 02-07-2020 20:57-0400 Body weight 117.03 kg [facility] Work Phone: 02-07-2020 20:57-0400 BP Diastolic 76 mm[Hg] [facility] Work Phone: 02-07-2020 20:57-0400 BP Systolic 126 mm[Hg] Figueroa Martinez [facility] Work Phone: 02-07-2020 20:57-0400 BSA (Body Surface Area) 2.15 m2 Figueroa Martinez [facility] Work Phone: 02-07-2020 20:57-0400 Height 160.02 cm Figueroa Martinez [facility] Work Phone: 02-07-2020 20:57-0400 Pulse (Heart Rate) 86 /min Figueroa Martinez [facility] Work Phone: 02-07-2020 20:57-0400 Pulse Oximetry 98 % Figueroa Martinez [facility] Work Phone: Encounters Encounter Date Encounter Type Care Provider Facility Start: 02-14-2024 End: 02-14-2024 ambulatory [facility] Ambulatory Start: 12-28-2023 End: 12-28-2023 ambulatory [facility] Ambulatory Start: 11-16-2023 End: 11-16-2023 Office outpatient visit 15 minutes [facility] Work Phone: [facility] Comment on above: Chronic right should er pain (Primary Dx); Muscle spasm Start: 11-16-2023 End: 11-16-2023 ambulatory [facility] Ambulatory Start: 10-05-2023 End: 10-05-2023 Office outpatient visit 15 minutes Tana Marques MD Work Phone: [facility] Comment on above: Vertigo (Primary Dx) ; Other migraine without status migrainosus, not intractable; Otitis, left Start: 10-05-2023 End: 10-05-2023 ambulatory TANA MARQUES [facility] Ambulatory Start: 08-25-2023 End: 08-25-2023 ambulatory SHUBHAM WAGNER [facility] Start: 08-25-2023 End: 08-25-2023 Office outpatient visit 40 minutes Shubham Wagner PA-C Work Phone: [facility] Comment on above: Primary insomnia (Pr imary Dx); APRIL (obstructive sleep apnea); Inadequate sleep hygiene; Restless leg syndrome Start: 08-09-2023 End: 08-09-2023 ambulatory [facility] Start: 08-07-2023 [facility] Start: 08-07-2023 ambulatory Radha BRADLEY [facility] Comment on above: Psychiatric Problem Start: 08-07-2023 End: 08-07-2023 Emergency department patient visit EDMUND GIBBS Facility:[facility] Start: 07-27-2023 End: 07-27-2023 Office consultation new/estab patient 80 min Gian Eric [place] TECHNOLOGY SALES CONSULTANT-VIAL GAUGER Work Phone: [facility] Comment on above: APRIL (obstructive sle ep apnea) (Primary Dx); Psychophysiological insomnia; Restless leg syndrome; Inadequate sleep hygiene; Excessive daytime sleepiness; Fatigue, unspecified type; Sleep disturbance; Morbid obesity (CMS/HCC); Medication management Start: 07-27-2023 End: 07-27-2023 ambulatory [facility] Ambulatory Start: 07-26-2023 End: 07-27-2023 ambulatory ANAY Jimenez [facility] Start: 07-26-2023 End: 07-26-2023 Office outpatient new 30 minutes Mala Torres MD Work Phone: [facility] Comment on above: Low TSH level (Prima ry Dx); Subclinical hyperthyroidism Start: 07-26-2023 End: 07-26-2023 ambulatory [facility] Ambulatory Start: 07-19-2023 End: 07-20-2023 ambulatory OPAL ANGLIN [facility] Start: 07-12-2023 End: 07-12-2023 ambulatory [facility] Start: 06-09-2023 End: 06-09-2023 ambulatory [facility] Ambulatory Start: 06-07-2023 End: 06-07-2023 Subsequent hospital visit by physician Jaron X-Ray Fluoro [facility] Comment on above: Dysphagia, unspecifi ed type; Heartburn Start: 06-07-2023 End: 2023 ambulatory [facility] Start: 06-07-2023 End: 06-07-2023 Office outpatient new 45 minutes Opal Anglin TECHNOLOGY SALES CONSULTANT-VIAL GAUGER Work Phone: [facility] Comment on above: Restless leg syndrom e (Primary Dx); REM sleep behavior disorder; Suspected sleep apnea; Psychophysiological insomnia Start: 05-23-2023 End: 05-23-2023 ambulatory [facility] Ambulatory Start: 05-23-2023 End: 05-23-2023 Office outpatient visit 25 minutes Heather Yi MD Work Phone: [facility] Comment on above: Intractable chronic migraine without aura and without status migrainosus (Primary Dx) Start: 05-13-2023 End: 05-13-2023 Office outpatient new 45 minutes Dino Hsieh MD Work Phone: [facility] [employer] Comment on above: Heartburn (Primary D x); Dysphagia, unspecified type; Encounter for screening for other viral diseases; Abdominal bloating Start: 05-13-2023 End: 05-13-2023 ambulatory [facility] Ambulatory Start: 04-22-2023 End: 04-23-2023 ambulatory ANAY Tony [facility] Start: 03-31-2023 End: 04-01-2023 ambulatory ANAY Tony [facility] Start: 03-31-2023 End: 03-31-2023 Patient encounter status Anaysorin Cantu DO Work Phone: [facility] Work Phone: Start: 03-31-2023 End: 03-31-2023 Periodic preventive med est patient 18-39 yrs Anay Cantu DO Work Phone: [facility] Comment on above: Encounter for [facility] ss examination in adult (Primary Dx); Elevated LDL cholesterol level; REM sleep behavior disorder; Class 3 severe obesity due to excess calories without serious comorbidity with body mass index (BMI) of 50.0 to 59.9 in adult ([facility]); Morbid obesity ([facility]); Dysphagia, unspecified type; Low TSH level; Back pain, unspecified back location, unspecified back pain laterality, unspecified chronicity; Muscle spasm Start: 03-31-2023 End: 03-31-2023 ambulatory [facility] Ambulatory Start: 03-16-2023 End: 03-16-2023 Office outpatient visit 25 minutes Lucia Romero MD Work Phone: [facility] Comment on above: Back pain, unspecifi ed back location, unspecified back pain laterality, unspecified chronicity (Primary Dx); Muscle spasm; Strain of trapezius muscle, unspecified laterality, initial encounter Start: 03-16-2023 End: 03-16-2023 ambulatory [facility] Ambulatory Start: 02-22-2023 End: 02-23-2023 ambulatory [facility] Start: 02-22-2023 End: 02-23-2023 Encounter for general adult medical examination without abnormal findings [facility] Start: 02-22-2023 End: 02-22-2023 Office outpatient new 60 minutes Anay Cantu DO Work Phone: [facility] Comment on above: Pelvic cramping ([facility] isael Dx); Class 3 severe obesity due to excess calories without serious comorbidity with body mass index (BMI) of 50.0 to 59.9 in adult ([facility]); Routine health maintenance; Screening for cervical cancer; Bruxism; History of human papilloma virus; TMJ (temporomandibular joint disorder); Chronic ear pain, bilateral Start: 02-22-2023 End: 02-22-2023 Patient encounter status Anay Cantu DO Work Phone: [facility] Work Phone: Start: 02-22-2023 End: 02-22-2023 ambulatory [facility] Ambulatory Start: 02-22-2023 End: 02-22-2023 Encounter for general adult medical examination without abnormal findings [facility] Ambulatory Start: 01-24-2023 End: 04-06-2023 ambulatory [facility] Start: 07-22-2022 Office outpatient vi sit 25 minutes Tenisha Brown Work [facility]: [facility] Work Phone: Start: 07-22-2022 Patient encounter procedure Tenisha Brown Work [facility]: [facility] Work Phone: Start: 07-22-[address] Figueroa Martinez Facility:[id number] Start: 07-14-2022 Office outpatient vi sit 25 minutes Tenisha Brown Work Phone: [facility] Work Phone: Start: 07-14-[address] Tenisha Lilly lity:[id number] Start: 05-21-[address] Thee Vaughan [facility] Facility:[id number] Start: 05-21-2022 Patient encounter procedure Tenisha Brown Work Phone: [facility] Work Phone: Start: 05-07-2022 ambulatory Ms. Yoan Kimball [facility] ity:[id number] Start: 12-16-[address] Tenisha Lilly lity:[id number] Start: 12-16-2021 Office outpatient vi sit 25 minutes Tenisha Brown Work Phone: [facility] Work Phone: Start: 10-20-2021 Office outpatient vi sit 25 minutes Tenisha Brown Work Phone: [facility] Work Phone: Start: 10-14-[address] YULIA Morales acility:[id number] Start: 10-14-2021 Encounter for genera l adult medical examination without abnormal findings Dr. YULIA RAPHAEL Facility:[id number] Start: 10-05-2021 Chart Update Tenisha Whites Work Phone: [facility] [place] Work Phone: Start: 09-29-[address] Brian Jo [facility] ity:[id number] Start: 09-29-2021 Patient encounter procedure Tenisha Whites Work Phone[facility] [place] Work Phone: Start: 07-28-2021 Office outpatient vi sit 25 minutes Tenisha Whites Work Phone: [facility] Work Phone: Start: 07-28-2021 Patient encounter procedure Tenisha Whites Work Phone: [facility] Work Phone: Start: 07-23-2021 End: 07-24-2021 [facility] Start: 07-23-2021 Patient encounter procedure Tenisha Brown Work Phone: [facility] Work Phone: Start: 06-18-2021 Patient encounter procedure Tenisha Whites Work Phone: [facility] Work Phone: Start: 02-26-2021 Office outpatient vi sit 15 minutes Tenisha Avilameeras Work Phone: [facility] Work Phone: Start: 11-21-2020 Office outpatient vi sit 15 minutes Tenisha Stevenson Escolas Work Phone: [facility] Work Phone: Start: 11-21-2020 Patient encounter procedure Tenisha Brown Work Phone: [facility] Work Phone: Start: 02-07-2020 Patient encounter procedure Figueroa Martinez [facility] Work Phone: Start: 08-31-2019 Patient encounter procedure Figueroa Martinez [facility] Work Phone: Start: 08-03-2019 Patient encounter procedure Figueroa Martinez [facility] Work Phone: Start: 02-22-2019 Patient encounter procedure Figueroa Martinez [facility] Work Phone: Start: 12-21-2018 Patient encounter procedure Figueroa Martinez [facility] Work Phone: Start: 10-05-2018 End: 10-05-2018 Patient encounter procedure NO FAMILY PHYSICIAN Facility:[facility] Start: 08-17-2018 Patient encounter procedure Figueroa Martinez [facility] Work Phone: Start: 04-06-2018 Patient encounter procedure HARANTOINETTEET YAO Facility:[id number] Start: 03-23-2018 Patient encounter procedure HARANTOINETTEET YAO Facility:[id number] Start: 03-09-2018 Patient encounter procedure HARANTOINETTEET YAO Facility:[id number] Start: 03-09-2018 End: 03-09-2018 [facility] Start: 12-06-2017 End: 12-09-2017 Patient encounter WANDA DOOLEY [facility] Start: 10-25-2017 End: 10-28-2017 Patient encounter TENISHA Stevenson RACHELRICO [facility] Patient encounter status Tenisha Stevenson Rachelrico Work Phone: [facility] Work Phone: Procedures Date Procedure Procedure Detail Performing Clinician Start: 07-27-2023 Follow-up visit Follow-up GIAN CONNELL Start: 07-26-2023 Comprehensive metabolic 2000 panel - Serum or Plasma LYNNETTE ZUNIGA Start: 07-26-2023 THYROTROPIN RECEPTOR ANTIBODY LYNNETTE BUTSCHER Start: 07-26-2023 THYROXINE, FREE LYNNETTE BUTSCHER Start: 07-26-2023 TRIIODOTHYRONINE, TOTAL LYNNETTE BUTSCHER Start: 07-26-2023 AMB REFERRAL TO ENDOCRINOLOGY ANAY CANTU Start: 07-26-2023 Thyrotropin [Units/volume] in Serum or Plasma Gian Oro Grandeprincess JEROME-VIAL GAUGER Work Phone: Start: 07-19-2023 IN-CENTER SLEEP STUDY [facility]AL PORT[facility] Start: 06-09-2023 AMB REFERRAL TO NUTRITION SERVICES ANAY CANTU Start: 06-07-2023 FL GI ESOPHAGRAM ANAY CANTU Start: 06-07-2023 Ferritin [Mass/volume] in Serum or Plasma LYNNETTE BUTSCHER Start: 06-07-2023 IRON AND TIBC LYNNETTE BUTSCHER Start: 06-07-2023 AMB REFERRAL TO ADULT SLEEP MEDICINE LYNNETTE BUTSCHER Start: 05-13-2023 AMB REFERRAL TO GASTROENTEROLOGY ANAY CANTU Start: 04-22-2023 THYROID LYNNETTE BUTSCHER Start: 03-31-2023 THYROID PEROXIDASE (TPO) ANTIBODY LYNNETTE BUTSCHER Start: 03-31-2023 THYROID STIMULATING IMMUNOGLOBULIN LYNNETTE BUTSCHER Start: 02-22-2023 CBC panel - Blood by Automated count LYNNETTE BUTSCHER Start: 02-22-2023 Comprehensive metabolic 2000 panel - Serum or Plasma LYNNETTE BUTSCHER Start: 02-22-2023 Hemoglobin A1c/Hemoglobin.total in Blood LYNNETTE BUTSCHER Start: 02-22-2023 Lipid panel LYNNETTE BUTSCHER Start: 02-22-2023 THYROXINE, FREE LYNNETTE BUTSCHER Start: 02-22-2023 TSH WITH REFLEX TO FREE T4 IF ABNORMAL LYNNETTE BUTCOUNTS [facility] Start: 02-22-2023 GRAM STAIN FOR BACTERIAL VAGINOSIS/YEAST ANAYNATIVIDAD CANTU Start: 02-22-2023 GYNECOLOGIC CYTOLOGY CONSULTATION ANAY CANTU Start: 02-22-2023 Lipid 1996 panel - Serum or Plasma Lucia Romero MD Work Phone: Start: 02-22-2023 Microscopic observation [Identifier] in Cervix by Cyto stain Lucia Romero MD Work Phone: Start: 07-21-2022 Lipid 1996 panel - Serum or Plasma Anay Cantu DO Work Phone: Start: 03-09-2018 Radex foot complete minimum 3 views TENISHA BROWN Start: 12-06-2017 Us lmtd joint/oth nonvasc xtr strux r-t w/img TENISHA BROWN Start: 10-25-2017 Ct abdomen & pelvis w/o contrast material TENISHA BROWN History of No histor y of surgery Figueroa Martinez No history of surgery Tenisha Brown Work Phone: Plan of Treatment Date Care Activity Detail Author Start: 2040 Zoster Vaccines (1 of 2) Zoste r Vaccines (1 of 2) [facility] Start: 02-23-2028 Lipid panel Lipid Panel [facility] Start: 07-21-2027 Lipid panel Lipid Panel [facility] Start: 02-22-2026 Screening for malign ant neoplasm of cervix [facility] Start: 07-26-2024 Thyroid stimulating hormone measurement TSH Level [facility] Start: 04-01-2024 Yearly Adult Physical Yearly Adult P hysical [facility] Start: 02-23-2024 Diabetes mellitus screening Diabetes Screening [facility] Start: 02-05-2024 Influenza vaccination Influenz a Vaccine (Season Ended) [facility] Start: 12-28-2023 End: 12-28-2023 Patient encounter procedure 12/28/2023 3:30 PM EDT Office Visit [facility] [address] [place] [address] Anay Cantu DO [address] [facility], [address] [place] [address] [facility] Start: 12-13-2023 End: 12-13-2023 Patient encounter procedure 12/13/2023 9:40 AM EDT Office Visit [facility] [address] [place] [address] [place] [id number] [address] Department of [place] [address] [facility] Start: 11-16-2023 End: 11-15-2024 XR Shoulder - right 2 Views XR shoulder right 2+ views Imaging Routine Chronic right shoulder pain Expected: 11/16/2023, Expires: 11/15/2024 [facility] Service Area Work Phone: Comment on above: Expected: 11/16/2023 , Expires: 11/15/2024 Start: 09-27-2023 End: 09-27-2023 Patient encounter procedure 09/27/2023 9:00 AM EDT Office Visit [facility] [address] [place] [address] Anay Cantu DO [address] [facility] [address] [place] [address] [facility] Start: 09-06-2023 End: 09-06-2023 Telemedicine consultation with patient 09/06/2023 1:30 PM EDT Telemedicine Clinical Support [facility] [address] [address] [place] [phone] Lynnette Zuniga, STEPHIE, LD [address] [facility] [address] [place], [place] [id number] [facility] Start: 08-25-2023 End: 08-25-2023 Patient encounter procedure 08/25/2023 9:30 AM EDT Office Visit [facility] [address] [facility] [address] [place] [address] Shubham Wagner PAAdenikeC [address] [place] [address] [facility] Start: 08-09-2023 End: 08-09-2023 Telemedicine consultation with patient 08/09/2023 10:30 AM EST Telemedicine [facility] [address] [place] [address] Lynnette Zuniga, RD, LD [address] [facility] [address] [place] [address] [facility] Start: 07-27-2023 End: 07-27-2023 Patient encounter procedure 07/27/2023 1:00 PM EST Office Visit [facility] [address] [place] [phone] Gian Connell, TECHNOLOGY SALES CONSULTANT-VIAL GAUGER [address] [facility] [place] [address] [facility] Start: 07-26-2023 End: 07-26-2024 Comprehensive metabolic 2000 panel - Serum or Plasma Comprehensive metabolic panel Lab Routine Low TSH level Expected: 07/26/2023 (Approximate), Expires: 07/26/2024 [facility] Work Phone: Comment on above: Expected: 07/26/2023 (Approximate), Expires: 07/26/2024 Start: 07-26-2023 End: 07-26-2024 Thyrotropin [Units/volume] in Serum or Plasma Thyroid Stimulating Hormone Lab Routine Low TSH level Expected: 07/26/2023 (Approximate), Expires: 07/26/2024 [facility] Service Area Work Phone: Comment on above: Expected: 07/26/2023 (Approximate), Expires: 07/26/2024 Start: 07-26-2023 End: 07-26-2024 Thyrotropin receptor Ab [Units/volume] in Serum Thyrotropin Receptor Antibody Lab Routine Low TSH level Expected: 07/26/2023 (Approximate), Expires: 07/26/2024 [facility] Work Phone: Comment on above: Expected: 07/26/2023 (Approximate), Expires: 07/26/2024 Start: 07-26-2023 End: 07-26-2024 Thyroxine (T4) free [Mass/volume] in Serum or Plasma Thyroxine, Free Lab Routine Low TSH level Expected: 07/26/2023 (Approximate), Expires: 07/26/2024 [facility] Work Phone: Comment on above: Expected: 07/26/2023 (Approximate), Expires: 07/26/2024 Start: 07-26-2023 End: 07-26-2024 Triiodothyronine (T3) [Mass/volume] in Serum or Plasma Triiodothyronine, Total Lab Routine Low TSH level Expected: 07/26/2023 (Approximate), Expires: 07/26/2024 [facility] Work Phone: Comment on above: Expected: 07/26/2023 (Approximate), Expires: 07/26/2024 Start: 07-26-2023 End: 07-26-2023 Patient encounter procedure [facility] Start: 07-19-2023 End: 07-19-2023 Clinical Support 07/19/2023 7:45 PM EST Clinical Support [facility] [address] [place] [address] [facility] Start: 06-27-2023 End: 06-27-2023 Patient encounter procedure 06/27/2023 8:00 AM EST Office Visit [facility] [address] [facility] [address] [place] [address] Heather Yi MD [address] [facility] [place], [place] [id number] [facility] Start: 06-09-2023 End: 06-09-2023 Nutrition therapy 06/09/2023 2:30 PM EST Nutrition [facility] [address] [place] [address], LD [address] [facility] [address] [place] [address] [facility] Start: 06-07-2023 End: 06-07-2024 Ferritin [Mass/volume] in Serum or Plasma [facility] Service Area Work Phone: Comment on above: Expected: 06/07/2023 (Approximate), Expires: 06/07/2024 Start: 06-07-2023 End: 06-07-2024 In-Center Sleep Study (Sleep Provider Only) In-Center Sleep Study (Sleep Provider Only) Sleep Center Routine REM sleep behavior disorder Restless leg syndrome Suspected sleep apnea Expected: 06/07/2023 (Approximate), Expires: 06/07/2024 [facility] Work Phone: Comment on above: Expected: 06/07/2023 (Approximate), Expires: 06/07/2024 Start: 06-07-2023 End: 06-07-2024 Iron and Iron binding capacity panel - Serum or Plasma [facility] Work Phone: Comment on above: Expected: 06/07/2023 (Approximate), Expires: 06/07/2024 Start: 06-07-2023 End: 06-07-2023 Patient encounter procedure [facility] Start: 06-06-2023 Depression Assessment Depression Ass [facility] Start: 05-23-2023 End: 05-23-2023 Patient encounter procedure 05/23/2023 3:00 PM EST Office Visit [facility] [address] [facility] [address] [place] [phone] Heather Yi MD [address] [facility] [place] [id number] [facility] Start: 05-13-2023 End: 05-13-2024 Hepatitis C virus Ab [Presence] in Serum Hepatitis C Antibody Lab Routine Encounter for screening for other viral diseases Expected: 05/13/2023 (Approximate), Expires: 05/13/2024 [facility] Work Phone: Comment on above: Expected: 05/13/2023 (Approximate), Expires: 05/13/2024 Start: 05-13-2023 End: 05-13-2024 RF Esophagus Views W barium contrast PO FL GI esophagram Imaging Routine Dysphagia, unspecified type Heartburn Expected: 05/13/2023, Expires: 05/13/2024 [facility] Work Phone: Comment on above: Expected: 05/13/2023 , Expires: 05/13/2024 Start: 03-31-2023 End: 03-31-2024 Thyroid stimulating immunoglobulins [Units/volume] in Serum Thyroid Stimulating Immunoglobulin Lab Routine Low TSH level Expected: 03/31/2023 (Approximate), Expires: 03/31/2024 [facility] Service Area Work Phone: Comment on above: Expected: 03/31/2023 (Approximate), Expires: 03/31/2024 Start: 03-31-2023 End: 03-31-2024 Thyroperoxidase Ab [Units/volume] in Serum or Plasma Thyroid Peroxidase (TPO) Antibody Lab Routine Low TSH level Expected: 03/31/2023 (Approximate), Expires: 03/31/2024 [facility] Work Phone: Comment on above: Expected: 03/31/2023 (Approximate), Expires: 03/31/2024 Start: 03-31-2023 End: 03-31-2023 Patient encounter procedure 03/31/2023 1:30 PM EDT Office Visit [facility] [address] [place] [address] Anay Cantu DO [address] [facility], [address] [place], [place] [phone] [facility] Start: 02-22-2023 End: 02-23-2024 CBC panel - Blood by Automated count CBC Lab Routine Routine health maintenance Expected: 02/22/2023 (Approximate), Expires: 02/23/2024 [facility] Service Area Work Phone: Comment on above: Expected: 02/22/2023 (Approximate), Expires: 02/23/2024 Start: 02-22-2023 End: 02-23-2024 Comprehensive metabolic 2000 panel - Serum or Plasma Comprehensive Metabolic Panel Lab Routine Routine health maintenance Expected: 02/22/2023 (Approximate), Expires: 02/23/2024 [facility] Work Phone: Comment on above: Expected: 02/22/2023 (Approximate), Expires: 02/23/2024 Start: 02-22-2023 End: 02-23-2024 Hemoglobin A1c/Hemoglobin.total in Blood Hemoglobin A1c Lab Routine Routine health maintenance Expected: 02/22/2023 (Approximate), Expires: 02/23/2024 [facility] Work Phone: Comment on above: Expected: 02/22/2023 (Approximate), Expires: 02/23/2024 Start: 02-22-2023 End: 02-23-2024 Lipid 1996 panel - Serum or Plasma Lipid Panel Lab Routine Routine health maintenance Expected: 02/22/2023 (Approximate), Expires: 02/23/2024 [facility] Work Phone: Comment on above: Expected: 02/22/2023 (Approximate), Expires: 02/23/2024 Start: 02-22-2023 End: 02-23-2024 Tsh With Reflex To Free T4 If Abnormal Tsh With Reflex To Free T4 If Abnormal Lab Routine Routine health maintenance Expected: 02/22/2023 (Approximate), Expires: 02/23/2024 [facility] Work Phone: Comment on above: Expected: 02/22/2023 (Approximate), Expires: 02/23/2024 Start: 02-04-2023 COVID-19 Vaccine ( season) COVID-19 Vaccine ( season) [facility] Start: 02-04-2023 Influenza vaccination Influenza Vacc ine (#1) [facility] Start: 10-14-2022 Vitamin D25-[place] Vitamin D25-OH [facility] Start: 08-04-2022 FUV, Provider: Tenisha Brown, Status: Pen, Time: 1:15 PM FUV, Provider: Tenisha Brown, Status: Pen, Time: 1:15 PM [facility] Work Phone: Start: 04-21-2022 NPV, Provider: Ashly Noe, Status: Pen, Time: 10:00 AM NPV, Provider: Ashly Noe, Status: Pen, Time: 10:00 AM [facility] Work Phone: Start: 10-22-2021 FUV, Provider: Dedrick Villareal, Status: Pen, Time: 10:45 AM FUV, Provider: Dedrick Villareal, Status: Pen, Time: 10:45 AM [facility] Work Phone: Start: 02-05-2021 COVID-19 Vaccine (3 - Moderna series) COVID-19 Vaccine (3 - Moderna series) [facility] Start: 2020 Screening for malign ant neoplasm of cervix HPV Testing [facility] Start: 2012 DTaP/Tdap/Td Vaccine s (1 - Tdap) DTaP/Tdap/Td Vaccines (1 - Tdap) [facility] Start: 2011 Screening for malign ant neoplasm of cervix [facility] Start: 2009 Hepatitis B Vaccines (1 of 3 - 19+ 3-dose series) Hepatitis B Vaccines (1 of 3 - 19+ 3-dose series) [facility] Start: 2009 Urine microalbumin profile DTa P,Tdap,Td Vaccine (1 - Tdap) [facility] Start: 2008 Hepatitis C screening Hepatitis C Sc reening [facility] Start: 2008 HIV screening HIV Screening [facility] Start: 2003 Varicella vaccination Varicell a Vaccines (1 of 2 - 13+ 2-dose series) [facility] Start: 01-22-2003 Varicella vaccination Varicell a Vaccines (1 of 2 - 2-dose childhood series) [facility] Start: 1991 Hepatitis B Surface Antibody Hepatitis B Surface Antibody [facility] Start: 1990 Covid-19 Vaccine (#1) Covid-19 Vacci ne (#1) [facility] Start: 1990 Cyanocobalamin vitam in b-12 Vitamin B-12 [facility] Start: 1990 Hepatitis B Vaccine (1 of 3 - 3-dose series) Hepatitis B Vaccine (1 of 3 - 3-dose series) [facility] Start: 1990 Hepatitis B Vaccines (1 of 3 - 3-dose series) Hepatitis B Vaccines (1 of 3 - 3-dose series) [facility] Start: 1990 HIV screening HIV Screening [facility] Start: 1990 Screening for osteoporosis Bone Dens ity Scan [facility] Start: 1990 TB Test TB Test [facility] Start: 1990 Yearly Adult Physical Yearly Adult P hysical [facility] Cytology Cervical or vaginal smear or scraping study THINPREP PAP TEST Pathology and Cytology Routine Screening for cervical cancer Ordered: 02/22/2023 [facility] Work Phone: Comment on above: Ordered: 02/22/2023 Gram Stain for Bacte rial Vaginosis/Yeast Gram Stain for Bacterial Vaginosis/Yeast Microbiology Routine Pelvic cramping Ordered: 02/22/2023 [facility] Work Phone: Comment on above: Ordered: 02/22/2023 End: 06-07-2023 RF Esophagus Views W barium contrast PO FL GI esophagram Imaging Routine Dysphagia, unspecified type Heartburn Once for 1 Occurrences starting 06/07/2023 until 06/07/2023 [facility] Service Area Work Phone: Comment on above: Once for 1 Occurrenc es starting 06/07/2023 until 06/07/2023 Immunizations Immunization Date Immunization Notes Care Provider Anjana kumar 07-07-2020 influenza, injectabl e, quadrivalent, preservative free; Translations: [Flulaval Quadrivalent 0.5 ML Intramuscular Suspension Prefilled Syringe] Tenisha Brown Work Phone: [facility] Work Phone: Comment on above: Series: 07-07-2020 influenza, seasonal, injectable Lucia Romero MD Work Phone: [facility] Work Phone: 07-07-2020 influenza virus vaccine, unspecified formulation Lucia Romero MD Work Phone: [facility] Work Phone: 12-25-2002 measles, mumps and rubella virus vaccine Tenisha Brown Work Phone: [facility] Work Phone: Comment on above: Series: Moderna COVID-19 Vaccine 100 MCG/0.5ML Intramuscular Suspension Tenisha WhiteVisualXcript Work Phone: [facility] Work Phone: Comment on above: 11/13/20 Series: Payers Date Payer Category Payer Unknown [id number] 2018 Self-pay 2016 Unknown 2016 Unknown [id number] 1990 Unknown [id number] 2.16.8 40.1.289308.3.579.2.182 1990 Unknown [id number] 2.16.8 40.1.524201.3.579.2.182 1990 Unknown [id number] 2.16.8 40.1.472053.3.579.2.182 1990 Unknown [id number] 2.16.8 40.1.182959.3.579.2.355 1990 Unknown [id number] 2.16.8 40.1.210591.3.579.2.355 1990 Unknown [id number] 2.16.8 40.1.933211.3.579.2.355 1990 Unknown [id number] 2.16.8 40.1.359254.3.579.2.1068 1990 Unknown [id number] 2.16.8 40.1.503437.3.579.2.1068 1990 Unknown [id number] 2.16.8 40.1.598632.3.579.2.8 1990 Unknown [id number] 2.16.8 40.1.537750.3.579.2.8 1990 Unknown [id number] 2.16.8 40.1.414532.3.579.2.8 1990 Unknown [id number] 2.16. 840.1.804119.3.579.2.356 1990 Unknown [id number] 2.16. 840.1.518154.3.579.2.356 1990 Unknown [id number] 2.16. 840.1.703450.3.579.2.356 1990 Unknown [id number] 2.16.84 0.1.827296.3.579.2.3 1990 Unknown [id number] 2.16.84 0.1.672869.3.579.2.6 1990 Unknown [id number] 2.16.8 40.1.298928.3.579.2.1244 1990 Unknown [id number] 2.16.8 40.1.780245.3.579.2.1244 1990 Unknown [id number] 2.16.8 40.1.304981.3.579.2.1244 1990 Unknown [id number] 2.16.8 40.1.516263.3.579.2.5 1990 Unknown [id number] 2.16.8 40.1.156896.3.579.2.1244 1990 Unknown [id number] 2.16.8 40.1.366702.3.579.2.1244 1990 Unknown [id number] 2.16.8 40.1.556821.3.579.2.1244 1990 Unknown [id number] 2.16.84 0.1.745600.3.579.2.5 1990 Unknown [id number] 2.16.84 0.1.578823.3.579.2.1244 1990 Unknown [id number] 2.16.8 40.1.025324.3.579.2.4 1990 Unknown [id number] 2.16.8 40.1.563018.3.579.2.1243 1990 Unknown [id number] 2.16.8 40.1.579592.3.579.2.1243 1990 Unknown [id number] 2.16.8 40.1.000099.3.579.2.1243 1990 Unknown [id number] 2.16.8 40.1.306903.3.579.2.1243 1990 Unknown [id number] 2.16.8 40.1.755786.3.579.2.1243 1990 Unknown [id number] 2.16.8 40.1.941926.3.579.2.1243 1990 Unknown [id number] 2.16.8 40.1.203112.3.579.2.1243 1990 Unknown [id number] 2.16.8 40.1.473246.3.579.2.1243 1990 Unknown [id number] 2.16.8 40.1.946479.3.579.2.4 1990 Unknown [id number] 2.16.8 40.1.983446.3.579.2.1243 1990 Unknown [id number] 2.16.8 40.1.201503.3.579.2.1243 Unknown [id number] 2.16.84 0.1.855062.3.579.2.531 Unknown 1830 Social History Date Type Detail Facility Start: 02-22-2023 End: 09-06-2023 Former smoker Former smoker [facility] Work Phone: Tobacco smoking consumption unknown [facility] Start: 02-22-2023 End: 11-16-2023 Tobacco smoking status NHIS Ex-smoker [facility] Work Phone: Start: 06-06-2001 End: 07-27-2016 History of tobacco use Current smoker [facility] Work Phone: Start: 06-06-2001 End: 07-27-2016 History of tobacco use Cigarette Smoker [facility] Work Phone: Start: 02-22-2023 End: 11-16-2023 Tobacco use and exposure Smokeless tobacco non-user [facility] Work Phone: Start: 02-22-2023 End: 11-16-2023 Alcohol intake Current drinker of alcohol (finding) [facility] Work Phone: Start: 02-22-2023 End: 09-06-2023 Tobacco use panel [facility] Work Phone: Start: 02-22-2023 Alcohol Comment socailly [facility] Work Phone: Start: 1990 Sex Assigned At Female [facility] Start: 11-03-2022 Gender identity Identifies as female gender (finding) [facility] Work Phone: Start: 03-06-2023 End: 11-16-2023 Exposure to SARS-CoV-2 (event) Not sure [facility] Start: 05-28-2023 End: 06-07-2023 Exposure to SARS-CoV-2 (event) Unable to assess [facility] Start: 08-07-2023 Alcohol intake 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 (finding) [facility] Start: 1990 Sex Assigned At Not on file [facility] NEGATED: Highlighted row - - [facility] Work Phone: NEGATED: Highlighted rowStart: NINF History of tobacco use Passive smoker [facility] Work Phone: Functional Status Date Assessment Result Facility NEGATED: Highlighted row Functional performance Functional status health issues are not documented Disease [facility] Work Phone: Mental Status Date Assessment Result Facility NEGATED: Highlighted row Cognitive function [Interpretation] Cognitive status health issues are not documented Disease [facility] Work Phone: Clinical Notes 11-20-2019 to 11-16-2023 Anay Cantu, DO - 11/16/2023 12:30 PM Michael Min LPN - 10/05/2023 11:30 AM Bryce Marques MD - 10/05/2023 11:30 AM Ashly Wagner PA-C - 08/25/2023 9:30 AM EDTPatient Instructions Note Date & Type Note Facility 11-16-2023 History of Present illness Narrative Subjective Patient ID: Janneth Cuevas is a 33 y.o. female who presents for Shoulder Pain (R shoulder x2-3 months. Progressively getting worse. No known injury. ). HPI The patient was asked for permission to have a student present during their visit today. The patient agreed to both the presence of the student and his/her active participation in his/her exam today. Pain started 2-3 months ago No known MARTINE, however lifts heavy items for work Shoulder pops frequently Pain is constant and burning in sensation Takes ibuprofen 600-800mg BID, without much relief Heating pad improves the pain just briefly Reports dislocation of her shoulder as a teenager, no lasting issues from that Has some numbness into hands at times No imaging found in the chart Has discomfort at rest, 6/10 but an 8/10 when active Gets spasm of pain Has minimal pain to touch, but very tender however Has taken muscle relaxers in past but not for this Has been using aleve and CBD gel and lidocaine patch, which helped Review of Systems Neurological: Positive for numbness. All other systems reviewed and are negative. Objective BP 102/71 (BP Location: Left arm, Patient Position: Sitting, BP Cuff Size: Large adult) Pulse 87 Temp 36.5 C (97.7 F) (Temporal) Resp 16 Wt 127 kg (280 lb 1.6 oz) SpO2 97% BMI 49.63 kg/m Physical Exam Musculoskeletal: Right shoulder: Tenderness present. No swelling, bony tenderness or crepitus. Decreased range of motion. Normal strength. Normal pulse. Comments: Discomfort with abduction and some with flexion, improved with internal rotation +muscle spasm of rhomboids (TTP) +5/5 UE muscle strength, normal sensation to touch and tobacco stripper hand strength Constitutional: Well developed, well nourished, alert and in no acute distress Eyes: Normal external exam. Neck: Supple, no lymphadenopathy or masses. Cardiovascular: Regular rate and rhythm, normal S1 and S2, no murmurs, gallops, or rubs. Radial pulses normal. No peripheral edema. Pulmonary: No respiratory distress, lungs clear to auscultation bilaterally. No wheezes, rhonchi, rales. Skin: Warm, well perfused, normal skin turgor and color. Neurologic: Cranial nerves II-XII grossly intact. Psychiatric: Mood calm and affect normal. Assessment/Plan Trial Robaxin muscle relaxer at night time, but may take again during the day time if improving pain. Refer to hand out for home stretches, declined formal PT today May use heat/ice for comfort Consider using voltaren gel OTC (diclofenac is generic)-may take tylenol with this but no other NSAIDS Follow up in 6 weeks for re-eval documented in this encounter [facility] Work Phone: 10-05-2023 History of Present illness Narrative Answers submitted by the patient for this visit: Shortness of Breath Questionnaire (Submitted on 10/05/2023) Chief Complaint: Shortness of breath Chronicity: new Onset: yesterday Frequency: intermittently Progression since onset: unchanged abdominal pain: No chest pain: No claudication: No coryza: No ear pain: Yes fever: No headaches: Yes hemoptysis: No leg pain: No leg swelling: No neck pain: Yes orthopnea: Yes PND: No rash: No rhinorrhea: No sore throat: No sputum production: No swollen glands: No syncope: Yes vomiting: Yes wheezing: No Aggravating factors: occupational exposure, exercise Subjective Patient ID: Janneth Cuevas is a 33 y.o. female who presents for Earache (X1 week), Dizziness (X1 week), and Nausea (X1 week ). Shortness of Breath This is a new problem. The current episode started yesterday. The problem occurs intermittently. The problem has been unchanged. Associated symptoms include ear pain, headaches, neck pain, orthopnea, syncope and vomiting. Pertinent negatives include no abdominal pain, chest pain, claudication, coryza, fever, hemoptysis, leg pain, leg swelling, PND, rash, rhinorrhea, sore throat, sputum production, swollen glands or wheezing. The symptoms are aggravated by occupational exposure and exercise. Ear aches, bilateral; nausea, low appetite . 3 migraines in the last 3 days . Unusual for her. Will go months without headache, usually . Denies abd pain , abd cramping, or vomiting. Shakes/ chlls, but no fever .Dizzy/ off balance . Effexor, she decided to stop med, 11 d ago . Also on Trileptal, , trazodone . For bipolar, and for sleep . On Propranolol,Sumatriptan prn for migraine Review of Systems Constitutional: Negative for fever. HENT: Positive for ear pain. Negative for rhinorrhea and sore throat. Respiratory: Positive for shortness of breath. Negative for hemoptysis, sputum production and wheezing. Cardiovascular: Positive for orthopnea and syncope. Negative for chest pain, claudication, leg swelling and PND. Gastrointestinal: Positive for vomiting. Negative for abdominal pain. Musculoskeletal: Positive for neck pain. Skin: Negative for rash. Neurological: Positive for headaches. No head trauma. No tinnitus. No nasal congestion. No sore throat. No urinary sxs. Works at the [employer]. Objective BP 113/76 (BP Location: Left arm, Patient Position: Sitting, BP Cuff Size: Large adult) Pulse 70 Temp 37 C (98.6 F) (Temporal) Wt 126 kg (278 lb 6.4 oz) SpO2 98% BMI 49.33 kg/m Physical Exam Constitutional: Appearance: She is not ill-appearing or diaphoretic. HENT: Head: Normocephalic and atraumatic. Left Ear: Tympanic membrane normal. Ears: Comments: Mild erythema , anterior half of right TM . Dull Mouth/Throat: Pharynx: No oropharyngeal exudate or posterior oropharyngeal erythema. Eyes: Extraocular Movements: Extraocular movements intact. Conjunctiva/sclera: Conjunctivae normal. Pupils: Pupils are equal, round, and reactive to light. Comments: Feels lightheaded with EOMI testing Cardiovascular: Rate and Rhythm: Normal rate and regular rhythm. Pulmonary: Effort: Pulmonary effort is normal. Breath sounds: Normal breath sounds. Musculoskeletal: Cervical back: Normal range of motion. No rigidity or tenderness. Lymphadenopathy: Cervical: No cervical adenopathy. Neurological: Mental Status: She is alert. Psychiatric: Mood and Affect: Mood normal. Thought Content: Thought content normal. Judgment: Judgment normal. Assessment/Plan Problem List Items Addressed This Visit Medium Migraine headache Other Visit Diagnoses Vertigo - Primary Relevant Medications meclizine (Antivert) 25 mg tablet Otitis, left Relevant Medications amoxicillin (Amoxil) 875 mg tablet Vertigo - Related to Otitis , most likely New dxis . Reviewed etiology , dxis, eval, tx and follow up . Questions addressed . Recommend maneuvers. Education sent electronically . Avoid sudden movements of head/ neck/ eyes. Recommend rest from all activities. Off work tomorrow. Migraine HANSEN - Continue current tx Pt wondering about Clonazepam. Since taking self off the Venlafaxine, feeling more anxious. Also feels it could help some of her current sxs . She states she cannot ask psychiatry offic,e they do not prescribe any BZD I would not recommend Clonazepam . Tx the earinfx and thevertigo . Expect sxs to resolve. Anxiety tx - will likely need tx, since off prescription med. Should d/w Psychiatry. Robert Marques MD documented in this encounter [facility] Work Phone: 08-25-2023 Evaluation + Plan note Associated Problem(s): Restless leg syndrome -continue oral iron for now -having good benefit -ferritin in June 29 -re-check at future visit; consider IV iron as needed [facility] Work Phone: 08-25-2023 Miscellaneous Notes Associated Problem(s): Restless leg syndrome -continue oral iron for now -having good benefit -ferritin in June 29 -re-check at future visit; consider IV iron as needed Associated Problem(s): APRIL (obstructive sleep apnea) -encouraged trial of treatment again -declines; does not think she can tolerate OAT, afraid cats will mess with cpap -encourage healthy weight loss Associated Problem(s): Insomnia -Given current use of Medical Marijuana; will follow [facility] recommendation of patient to choose EITHER a traditional controlled substance or Marijuana, informed patient it is not recommended to be on both, she is also already on Klonopin; given addictive potential of Xanax I feel we should focus on lifestyle measures also for more extermination inspector benefit -Encouraged sleep hygiene, please eliminate TV 2 hours before bed -recommend trial of white nose -please incorporate a relaxing wind down routine; deep breathing/meditation -refer to CBTi as she is willing to give a try at this time documented in this encounter [facility] Work Phone: 08-25-2023 Evaluation + Plan note Associated Problem(s): APRIL (obstructive sleep apnea) -encouraged trial of treatment again -declines; does not think she can tolerate OAT, afraid cats will mess with cpap -encourage healthy weight loss [facility] Work Phone: 08-25-2023 Evaluation + Plan note Associated Problem(s): Insomnia -Given current use of Medical Marijuana; will follow recommendation of patient to choose EITHER a traditional controlled substance or Marijuana, informed patient it is not recommended to be on both, she is also already on Klonopin; given addictive potential of Xanax I feel we should focus on lifestyle measures also for more correction benefit -Encouraged sleep hygiene, please eliminate TV 2 hours before bed -recommend trial of white nose -please incorporate a relaxing wind down routine; deep breathing/meditation -refer to CBTi as she is willing to give a try at this time [facility] Work Phone: 08-25-2023 History of Present illness Narrative Images from the original note were not included. Patient: Janneth Cuevas [id number] : 1990 -- AGE 33 y.o. Provider: Shubham Wagner PA-C Location [facility] Service Date: 08/25/2023 Virtual or Telephone Consent An interactive audio and video telecommunication system which permits real time communications between the patient (at the originating site) and provider (at the distant site) was utilized to provide this telehealth service. Verbal consent was requested and obtained from Janneth Cuevas on this date, 08/25/23 for a telehealth visit. [facility] Followup Visit Note HISTORY OF PRESENT ILLNESS HISTORY OF PRESENT ILLNESS Janneth Cuevas is a 33 y.o. female with h/o insomnia, daytime sleepines, fatigue who presents to a [facility] for followup. PAST SLEEP HISTORY Most updated testing indicates mild APRIL, with AHI ~11 using AASM criteria / No APRIL with CMS criteria Assessment and plan from last visit: 07/27/2023- Gian Connell NP Summary: -Patient declined APRIL treatment -Given trial of Temazepam and encourage dto taper down/stop medical Marijuana -sleep hygiene was discussed -encouraged to lose weight -continue iron supplement for RLS Current History On today's visit, the patient reports Temazepam is not helping. Switch back to Trazadone, and feels this is more effective. Is asking about potentially prescribing Xanax for sleep. Works at post [employer] and has a schedule that is highly variable and affects her hours of sleep. Continues to use medical Marijuana for sleep. Remains uninterested in trial of APRIL treatment - states she does not think she can tolerate OAT and concern her cats would attack the cpap machine - states she lives in a loft and there is no door to the room to keep the cats out. Willing to give CBTi a try at this time. Reports sensitive to many medication: -Using Clonazepam currently for anxiety/sometimes sleep -Using medical marijuana prescribed she reports for PTSD, also helps with sleep -currently on Trazadone -Did not feel Temazepam was helpful -Lunesta- brain fog -Zaleplon- unsure if she tried, believes she did -Zolpidem- never again , bad side effects -Mirtazapine- significant weight gain -Doxepin- not helpful Sleep schedule: hours highly variable- works for post office Bed time: usually between 7-9P -varies depending on wake time/schedule Sleep latency: 30 minutes x2 per week, otherwise can be 1+ hours Nocturnal Awakenings: 0-1 - nocturia Wake up: 1:30-7A - varies highly for work as she works at the post office - may have a consistent week or two TST: 5-7 hours Naps: sometime between 9A and noon latin 1-2 hours REVIEW OF SYSTEMS REVIEW OF SYSTEMS See HPI; all other ROS were reviewed and negative for compliant ALLERGIES AND MEDICATIONS ALLERGIES Allergies Allergen Reactions Yogurt Swelling Ambien [Zolpidem] Other addiction Erythromycin Nausea/vomiting Ketorolac Other Sulfacetamide Itching Vancomycin Hives MEDICATIONS: She has a current medication list which includes the following prescription(s): clonazepam - TAKE 1 TABLET BY MOUTH 2 TIMES A DAY NEEDED FOR PANIC ATTACKS, ferrous sulfate - Take 1 tablet by mouth once daily at bedtime. Do not crush, chew, or split. Take with vitamin C (tablets, Geary juice, citrus fruit, etc), omeprazole - Take 1 capsule (40 mg) by mouth once daily. Do not crush or chew, oxcarbazepine - TAKE 1 AND 1/2 TABLETS BY MOUTH 2 TIMES A DAY, propranolol - Take 1 tablet (20 mg) by mouth 2 times a day, sumatriptan - Take 1 tablet (50 mg) by mouth 1 time if needed for migraine. May repeat after 2 hours, temazepam - Take 1 capsule (7.5 mg) by mouth as needed at bedtime for sleep, trazodone - Take 1 tablet (100 mg) by mouth once daily at bedtime, and venlafaxine xr - Take 1 capsule (75 mg) by mouth once daily. PAST MEDICAL HISTORY : She has a past medical history of Abdominal bloating (07/27/2023), Body mass index (BMI)40.0-44.9, adult (10/20/2021), Bruxism (03/14/2023), Chronic headache disorder (07/27/2023), Crohn's colitis ([facility]) (07/04/2012), Dysphagia (07/27/2023), Elevated low density lipoprotein (LDL) cholesterol level (07/27/2023), Excessive thirst (07/27/2023), Heartburn (07/27/2023), History of infection due to human papilloma virus (HPV) (07/27/2023), Morbid (severe) obesity due to excess calories ([facility]) (10/20/2021), Otalgia of both ears (07/27/2023), Personal history of other diseases of the respiratory system (07/07/2020), REM sleep behavior disorder (06/07/2023), and Temporomandibular joint disorder (07/27/2023). PAST SURGICAL HISTORY: She has a past surgical history that includes Other surgical history (12/21/2018). FAMILY HISTORY: No changes since previous visit. Otherwise non-contributory as charted. SOCIAL HISTORY She reports that she quit smoking about 8 years ago. Her smoking use included cigarettes. She has a 14.00 pack-year smoking history. She has never been exposed to tobacco smoke. She has never used smokeless tobacco. She reports current alcohol use. She reports current drug use. Drug: Marijuana. PHYSICAL EXAM VITAL SIGNS: There were no vitals taken for this visit. PREVIOUS WEIGHTS: Wt Readings from Last 3 Encounters: 07/26/23 128 kg (282 lb 9.6 oz) 07/19/23 127 kg (279 lb 15.8 oz) 07/12/23 127 kg (281 lb) Constitutional: Alert and oriented, cooperative, no acute distress Head: Normocephalic, atraumatic Cranial Features: No abnormal craniofacial features Pulmonary: Non-labored breathing, speaks in full sentences. No cough. RESULTS/DATA Bicarbonate (mmol/L) Date Value 07/26/2023 27 02/22/2023 30 07/21/2022 26 10/14/2021 27 Iron (ug/dL) Date Value 06/07/2023 59 % Saturation (%) Date Value 06/07/2023 13 (L) TIBC (ug/dL) Date Value 06/07/2023 455 (H) Ferritin (ng/mL) Date Value 06/07/2023 24 PAP Adherence Not applicable ASSESSMENT/PLAN Ms. Cuevas is a 33 y.o. female and she returns in followup to the [facility] for Insomnia. Problem List, Orders, Assessment, Recommendations: Problem List Items Addressed This Visit ICD-10-CM Insomnia - Primary G47.00 -Given current use of Medical Marijuana; will follow [facility] recommendation of patient to choose EITHER a traditional controlled substance or Marijuana, informed patient it is not recommended to be on both, she is also already on Klonopin; given addictive potential of Xanax I feel we should focus on lifestyle measures also for more extermination inspector benefit -Encouraged sleep hygiene, please eliminate TV 2 hours before bed -recommend trial of white nose -please incorporate a relaxing wind down routine; deep breathing/meditation -refer to CBTi as she is willing to give a try at this time Relevant Orders Referral to Adult Behavioral Sleep Medicine Restless leg syndrome G25.81 -continue oral iron for now -having good benefit -ferritin in June 29 -re-check at future visit; consider IV iron as needed APRIL (obstructive sleep apnea) G47.33 -encouraged trial of treatment again -declines; does not think she can tolerate OAT, afraid cats will mess with cpap -encourage healthy weight loss Inadequate sleep hygiene Z72.821 Disposition Return to clinic in 3 months documented in this encounter [facility] Work Phone: 08-13-2023 Note HNO ID: [id number] Author: NOTE, INTERFACE, ? Service: ? Author Type: ? Type: Progress Notes Filed: 08/13/2023 03:38 Note Text: Epic Scheduled Downtime: 08/13/2023 1:00:00 AM to 08/13/2023 3:24:00 AM [facility] 08-07-2023 Miscellaneous Notes BEHAVIORAL HEALTH INTAKE NOTE SERVICE DATE: 08/07/2023 SERVICE TIME: 919 am Nature of the crisis: anxiety Presenting Problem: Janneth Cuevas is a 33 year old female brought in to [facility] from Home by self for anxiety/panic attack. Per Epic and ED Notes: Ms. Cuevas is a 33-year-old female presenting today with much worsened anxiety. She notes that her father has cancer which is terminal for the third time and is an alcoholic and it is very difficult dealing with all of that, so recently she made the difficult decision to stop interacting with him and with several other members of her family in association. 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 She denies new chest pain, but does have some trouble breathing, feels largely like previous anxiety, though she has not completely confident of that. No unilateral weakness or numbness or trouble speaking or swallowing. She does have a history of migraines and she does feel little light sensitive presently. She is not really sure if she needs psychiatric hospitalization right now, though she would like to avoid it, she is a bit worried that she will not do well without it. She denies any suicidal or homicidal thinking. She ran out of her clonazepam a few days ago and is not able to refill it for about 4 to 5 days, given that she has had more anxiety. Ms. Cuevas is a 33-year-old female presenting with worsening anxiety, stable job and living situation. We will medically clear her and ask central intake to evaluate her. Pt Assessment: Pt was A&Ox 4, was calm and cooperative with assessment, and appeared to be appropriate in appearance. Pt reports mood as being exhausted and affect was flat. Pt s thought process was linear and organized and speech was appropriate with respect to rate, volume and quality and quantity. Denies AVH observed or reported at this time. Pt states that sleeping has been difficult falling a sleep, appetite has been decreased, and energy has been decreased. When asked what brought the pt to the ER, pt stated I felt like was going to pass out. Pt denies SI, HI, and self harm. Pt one prior attempts historically (slit her wrists 12 years ago). Pt reports linkage with outpatient mental health services ([facility] and telehealth) and two inpatient psychiatric admissions (n to any). Pt reports that the goal of coming here today was to get checked out after a panic attack SOCIAL HISTORY: Social History Tobacco Use Smoking status: Former Packs/day: .5 Types: Cigarettes Quit date: 07/27/2016 Years since quittin.0 Smokeless tobacco: Never Vaping Use Vaping Use: current everyday user Substances: THC Devices: Disposable Substance Use Topics Alcohol use: No Drug use: Yes Types: Marijuana MEDICATIONS: venlafaxine ER (EFFEXOR XR) 75 mg 24 hr capsule Take by mouth. OXcarbazepine (TRILEPTAL) 300 mg tablet TAKE 1 AND 1/2 TABLETS BY MOUTH 2 TIMES A DAY propranolol (INDERAL) 20 mg tablet Take 20 mg by mouth every 12 hours. omeprazole (PRILOSEC) 40 mg capsule Take 40 mg by mouth every 24 hours. clonazePAM (KLONOPIN) 1 mg tablet traZODone (DESYREL) 100 mg tablet ibuprofen (MOTRIN) 600 mg tablet Take 1 tablet by mouth every 6 hours as needed for Pain. No medication comments found. MEDICATION COMPLIANCE: Yes SOCIAL INFORMATION: Living Arrangements: Home Satisfaction With Relationships: good relationship - mother, non exsistent relationship with siblings, and father Does Patient Have Minor Children for Whom He/She is Responsible?: No Education Level: Some College Employment Status: Full-Time Is the Patient a : No Stressors: Family Family Issues: family drama Legal History: No Legal History Legal Details: none reported How Legal Issues Were Verified: [facility] Assistant Designer of Courts Website, [facility]'s Sexual Offender Website Gender Specific Test: Negative Sex at Time of : Female Patient Identified Gender: Female Preferred Pronoun: She/Her/Hers Sexual Orientation: Gibbons/Lesbian Cultural/Spiritism Concerns Cultural Issues or Concerns That Might Affect Treatment: none reported Spiritism/Spiritual Issues or Concerns That Might Affect Treatment: none reported OBSERVATIONS Level of Consciousness Alert: Yes Orientation: Person, Place, Time, Situation Speech Rate: Appropriate Volume: Appropriate Quality: Clear, Appropriate to Topic Quantity: Appropriate Thought Processes Thought: Linear and Organized Thought Content/Perceptions Delusions: None Observed Hallucinations: Patient Denies, None Evident Illusions: Patient Denies, None Evident Phobias: none reported Preoccupations: (none reported) Derealization: No Depersonalization: No Memory: Intact Recent, Intact Remote Cognition Impairment: None Intelligence Evaluation: Average Mood & Affect Patient Described Mood: exhausted - at least 6 months Other Dye Tank Tender Described Mood: anxious Dye Tank Tender: Dr. Edmund Gibbs Observed/Reported: Anxious, Panic Attacks, Hopelessness, Irritable Range of Affect: Full Sleep: Difficulty Sleeping, Difficulty Falling Asleep Appetite: Normal Appetite Energy: Lack of Energy, Decreased Energy Anxiety/Trauma: Flashbacks, Hyper Vigilance, Panic Attacks, Unable to Control Worry, Restlessness, Avoidant Behaviors Delirium Altered Mental Status Delirium/Altered Mental Status Symptoms: (none reported) Other Symptoms/Concerns Other Symptoms/Concerns: Dissociation Disordered Eating Disordered Eating: Binge Eating Other Addictive Concerns Other Addictive Concerns: (none reported) Non-Suicidal Self Injury Non-Suicidal Self Injury: None, Patient Denies Suicidal Ideation Suicidal Ideation: None, Patient Denies, Past Attempts Number of Attempts Reported by Patient: 1 Last Attempted: 12 years ago Method: cutting wrists Homicidal Ideation Homicidal Ideation: None, Patient Denies Non-Lethal Harm to Others or Damage/Destruction to Property Harm to Others or Damage/Destruction of Property: None, Patient Denies Access To Weapons Access To Weapons: No (kitchen knives) History of Impulsive Behaviors History: buy things impulsively Medical Conditions Medical Conditions Increasing Risks: None CHEMICAL DEPENDENCY Substance Use: Yes Referral for Substance Abuse Services: No Current Chemical Dependency Providers: none reported Chemical Dependency Inpatient/Residential Treatment History: none reported Chemical Dependency Outpatient Treatment History: none reported Substances Used: Marijuana ACTIVITY Activities of Daily Living: Independent Mobility: No Assistance Person Providing Information: KIRK Giron Continence: Continent Other Medical Need/Equipment: (none reported) Other Considerations: (none reported) MENTAL HEALTH SERVICES: Current Mental Health Providers: Telehealth - on line, psychiatrist Agency/Organization: [facility] Inpatient Mental Health Treatment History: Over 90 Days Ago Details of Past Hospitalization: depression- [facility] Last Hospitalization: [facility] x2, [facility] - a long time ago Outpatient Mental Health Treatment History: multiple outpatient treatment INTERVENTIONS Psychiatry Consult Completed in This Episode of Care: No Sources of Information: Patient, Epic, ED Staff Patient Assessed by Intake via: Telephone Coordination of care with: ED RN, ED LIP Interventions: Therapeutic Interventions Therapeutic Interventions: Crisis Assessment, Crisis Intervention Goals/Objectives: Admission to inpatient psychiatric unit for safety of patient and others, Admission to inpatient psychiatric unit for further evaluation and treatment of symptoms of illness DISPOSITION & PLAN: Patient Assessed by Intake via: Telephone Patient stated goals: Goals: Other Goal Goal: to get checked out. Coordination of Care with: ED RN, ED LIP Assessment/Impressions: Discharge Plan: Secure an inpatient bed, Await medical clearance, Consult with Psychiatry on-call, ED Psych consult, or other provider Goals/Objectives: Admission to inpatient psychiatric unit for safety of patient and others, Admission to inpatient psychiatric unit for further evaluation and treatment of symptoms of illness Total time spent (minutes) in Supportive Care for this patient: 75 MEDICAL CLEARANCE Initial Date: 08/07/23 Reviewed medical history with physician: Yes Reviewed abnormal labs with physician: Yes Discussed case with Dr. Hicks who states that Janneth Cuevas is not a candidate for admission. Is Patient Less Than 18 Years of Age or have a Guardian/Healthcare Power of Flat Hammerer?: No Disposition Date: 08/07/23 Disposition Time: 1041 SIGNATURE: KIRK Smyth PATIENT NAME: Janneth Cuevas DATE: August 07, 2023 TIME: 10:17 AM documented in this encounter [facility] 07-27-2023 History of Present illness Narrative Images from the original note were not included. Patient: Janneth Cuevas : 1990 AGE: 33 y.o. SEX:female Provider: Gian Connell APRN-[facility] Service Date: 07/27/2023 PCP: Anay Cantu DO Referred by: Opal Anglin, [facility] NEW PATIENT VISIT NOTE Virtual or Telephone Consent An interactive audio and video telecommunication system which permits real time communications between the patient (at the originating site) and provider (at the distant site) was utilized to provide this telehealth service. Verbal consent was requested and obtained from Janneth Cuevas on this date, 07/27/23 for a telehealth visit. PATIENT INFORMATION The patient's referring provider is: Opal Anglin CNP The patient's Primary Care Provider: Anay Cantu DO HISTORY OF PRESENT ILLNESS Patient ID: Janneth Cuevas is a 33 y.o. female who presents to a [facility] for evaluation for Insomnia, review of sleep study results, Excessive Daytime Sleepiness (EDS), Fatigue, Hypersomnia, and Medication Management Patient is here alone today. The patient has pertinent hx of APRIL, Insomnia, sleep disturbance, difficulty falling asleep, difficulty staying asleep, inadequate sleep hygiene, EDS, fatigue, vertigo, obesity, RAD, allergic rhinitis, GERD, colitis, Crohn's, IBS, Bipolar, panic disorder, anxiety, subclinical hyperthyroidism, RLS, migraines, OA, and chronic pain. Previous Visit's: 06/07/2023 with Opal Anglin CNP Janneth Cuevas is a 32 y.o. female who presents to a [facility] for a sleep medicine evaluation with concerns of APRIL, RLS, excessive daytime sleepiness. 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 The patient has h/o allergic rhinitis, obesity, GERD, anxiety, bipolar, migraine, RLS, asthma. Patient has the following sleep-related diagnoses: decreased REM sleep on previous study done about 10 years ago at [facility] Nothing else came of testing at that time On today's visit, the patient reports difficulty getting to sleep. Notes she has had trouble sleeping for most of her life. Had sleep testing done about 10 years ago at [facility], nothing really came of the testing. She feels anxious, ruminates at night often. Notes recently increased in leg twitching prior to bed, when she is sitting relaxing. She notes her father is an alcoholic, both her sisters drink often as well. All have trouble getting to sleep. Mom wakes often in the night, not sure if anyone else has She has been on several sleep medications in the past with psychiatry-- ambien (felt she was getting addicted to it, taking for a high), serleonoral felt too groggy, xanax, remeron (weight gain). She often takes klonopin in the AM, but sometimes takes it for sleep as well. Helps her fall asleep easily when she does. Notes she is currently taking trazodone 100 mg at bedtime, does not think it is as effective as it used to be. In the process of changing psychiatrists, however. Has been on up to 300 mg of trazodone in the past, remembers feeling more groggy at that time. Feels like most days she could keep sleeping regardless of how much sleep she got the night before. Notes she sleeps alone, not sure how bad she snores or if she moves her legs at night. She does endorses waking herself snoring/ gasping at times. Wakes to use the bathroom on occasion. Wakes almost every night with sweating around her neck, soaking her shirt, grinds her teeth, AM dry mouth and headaches. States she constantly has a headache now. Was recently started on propanolol and imitrex which has helped some. Feels she is irritable most days; trouble with memory and concentration. Interval History Patient was last seen in 06/2023 by Opal Anglin CNP. 07/27/23 Patient here today to review her recent sleep study. I reviewed with the patient her sleep study which showed mild APRIL based on 3% scoring. I discussed with her options for treatment. Options included OAT, positional therapy, PAP therapy or no treatment at all. Patient does not believe her sleepiness is d/t untreated APRIL. She has struggled with sleep her whole life. She has trialed many medications with psychiatry including: Benzodiazapine: Alprazolam / Xanax: worked well in the past for both sleep and anxiety Clonazepam / Klonopin: currently on medication, helps with anxiety, occasionally takes for sleep Hypnotics: Eszopiclone / Lunesta: brain foggy Zaleplon / Sonata: thinks she tried but can not remember Zolpidem / Ambien: never again , reported bad SE Melatonin Receptor Ramelteon / Rozerem: has not tried Anticonvulsants: Gabapentin / Neurontin: did not help Pregabalin / Lyrica: never tried Antidepressants: Mirtazapine / Remeron: had significant weight gain with medication Quetiapine / Seroquel: never tried Trazodone / Desyrel: currently on, not helping, was on higher doses but made her feel hungover in the morning Doxepin / Silenor: no effect Orexin Receptor Antagonist: Belsomra / Suvorexant: never tried Daridorexant / Quviviq: never tried Lemborexant / Dayvigo: never tried Patient reports she tends to be very sensitive to medication with lots of SE. She was previously on benzo in the past for sleep, helped but was discontinued d/t providers not wanting to prescribed benzo anymore. She has never tried an Orexin Receptor Antagonist. We discussed this medication vs benzo for sleep aide. She does not want to pursue treatment for her mild APRIL. We are going to work on sleep hygiene as well as trial of Temazepam at night for sleep. We discussed do not take with Trazodone or Klonopin. We discussed side effects and risks associated with benzo use. If this medication works, we will sign a CSA next session with urine drug screen. OARRS was reviewed, medical marijuana is noted on the OARRS report as well as Klonopin, no red flags noted. Patient is upfront on medical marijuana use. She was previously treated for RLS with iron replacement. She reports that the iron has resolved the issues in her legs. She is doing much better. Will recheck levels at the 3 month nidia of starting iron tablets. She takes every morning with pineapple juice. I encouraged the patient to work on weight management as this will help with decreasing the severity of APRIL. SLEEP HISTORY SLEEP STUDY HISTORY PSG - 07/19/2023 BMI - 49.6 TRT - 490.5 mins (8.2 hrs) TST - 451.5 mins (7.5 hrs) SE - 92% RDI3% - 11/hr RDI4% - 2.5/hr ELY - 0/hr SpO2 brandi - 87% <88% = 0.5 mins ODI3% - 7/hr ODI4% - 2.1/hr Cardiac data - 77 PLM Index - 0/hr with 0% associated with arousal Sleep Stages: Wake - 39 mins N1 - 18 mins (4%) N2 - 323.5 mins (71.7%) N3 - 50.5 mins (11.2%) REM - 59.5 mins (13.2%) SLEEP ENVIRONMENT Sleep location: bed Sleep status: sleeps alone Preferred sleep position: side TV in bedroom: Room is dark: Yes Room is quiet: Yes Room is cool: Yes Bed comfort: good SLEEP HABITS Activities before bedtime: TV, phone Activities in bed: rumination Clockwatching: No Smoking: denied ETOH: rarely Marijuana: medical marijuana Caffeine: daily Sleep aids: Trazodone WEIGHT: stable Claustrophobia: Yes REVIEW OF SYSTEMS REVIEW OF SYSTEMS Sleep-related ROS: Night symptoms: POSITIVE for snoring and NEGATIVE for witnessed apnea, wake up gasping and/or choking for air, nasal congestion , mouth breathing, night sweats during sleep, waking up with racing heart, heartburn or sour taste in mouth at night, nocturnal cough, and nocturia Morning symptoms: POSITIVE for unrefreshing sleep and morning headache and NEGATIVE for morning dry mouth and morning sore throat Daytime symptoms POSITIVE for excessive daytime sleepiness, fatigue, and trouble staying focused in daytime and NEGATIVE for trouble remembering things in daytime, irritability in daytime, and drowsy driving Hypersomnia / narcolepsy symptoms: Patient denies symptoms of a hypersomnolence disorder such as sleep paralysis, sleep-related hallucinations, recurrent sleep attacks, automatic behaviors, and cataplexy. Parasomnia symptoms: Patient denies symptoms of parasomnia. All other systems have been reviewed and are negative. ALLERGIES AND MEDICATIONS ALLERGIES Allergies Allergen Reactions Yogurt Swelling Ambien [Zolpidem] Other addiction Erythromycin Nausea/vomiting Ketorolac Other Sulfacetamide Itching Vancomycin Hives MEDICATIONS Current Outpatient Medications Medication Sig Dispense Refill clonazePAM (KlonoPIN) 1 mg tablet TAKE 1 TABLET BY MOUTH 2 TIMES A DAY NEEDED FOR PANIC ATTACKS ferrous sulfate 325 (65 Fe) MG EC tablet Take 1 tablet by mouth once daily at bedtime. Do not crush, chew, or split. Take with vitamin C (tablets, Geary juice, citrus fruit, etc) 90 tablet 1 omeprazole (PriLOSEC) [address] capsule Take 1 capsule (40 mg) by mouth once daily. Do not crush or chew. 30 capsule 11 OXcarbazepine (Trileptal) 300 mg tablet TAKE 1 AND 1/2 TABLETS BY MOUTH 2 TIMES A DAY propranolol (Inderal) 20 mg tablet Take 1 tablet (20 mg) by mouth 2 times a day. 60 tablet 5 SUMAtriptan (Imitrex) 50 mg tablet Take 1 tablet (50 mg) by mouth 1 time if needed for migraine. May repeat after 2 hours. 9 tablet 5 traZODone (Desyrel) 100 mg tablet Take 1 tablet (100 mg) by mouth once daily at bedtime. venlafaxine XR (Effexor-XR) 75 mg 24 hr capsule Take 1 capsule (75 mg) by mouth once daily. No current facility-administered medications for this visit. PAST HISTORY PERTINENT PAST MEDICAL HISTORY: See HPI PERTINENT PAST SURGICAL HISTORY for Sleep Medicine: non-contributory PERTINENT FAMILY HISTORY for Sleep Medicine: insomnia- mother PERTINENT SOCIAL HISTORY: She reports that she quit smoking about 8 years ago. Her smoking use included cigarettes. She has a 14.00 pack-year smoking history. She has never been exposed to tobacco smoke. She has never used smokeless tobacco. She reports current alcohol use. She reports current drug use. Drug: Marijuana. She currently lives with family and employed full-time Active Problems, Allergy List, Medication List, and PMH/PSH/FH/Social Hx have been reviewed and reconciled in chart. No significant changes unless documented in the pertinent chart section. Updates made when necessary. PHYSICAL EXAM VITAL SIGNS: There were no vitals taken for this visit. PREVIOUS WEIGHTS: Wt Readings from Last 3 Encounters: 07/26/23 128 kg (282 lb 9.6 oz) 07/19/23 127 kg (279 lb 15.8 oz) 07/12/23 127 kg (281 lb) Limited telehealth examination PHYSICAL EXAMINATION General appearance: awake alert in NAD Affect: normal Skin: no rash on areas visible to the video HEENT: Nasal congestion absent Teeth: normal dentition Lungs: no cough. Extr: grossly normal on areas visible to the video Neuro: normal speech RESULTS/DATA Iron (ug/dL) Date Value 06/07/2023 59 % Saturation (%) Date Value 06/07/2023 13 (L) TIBC (ug/dL) Date Value 06/07/2023 455 (H) Ferritin (ng/mL) Date Value 06/07/2023 24 Bicarbonate Date Value Ref Range Status 07/26/2023 27 21 - 32 mmol/L Final PAP Adherence Not applicable ASSESSMENT/PLAN Assessment/Plan Janneth Cuevas is a 33 y.o. female presents today in [facility] with the following problems: OBSTRUCTIVE SLEEP APNEA, mild (PSG AHI: 11/hr) - Patient's risk factors for APRIL: BMI, neck circumference, and narrow crowded upper airway anatomy - Current symptoms are: see HPI - APRIL diagnosed by PSG in 07/2023. Reviewed sleep studies today in clinic. See HPI. - Discussed with patient that there is no consistent evidence of health risks with mild APRIL. The decision to treat mild APRIL is based on symptoms, significant comorbid condition, or individual preference. Treatment options are PAP therapy, oral mandibular device, and/or positional therapy coupled with weight loss, and avoidance of alcohol drinking at night. No treatment may also be an option in select cases. - Since patient has no significant cardiovascular comorbid conditions or symptoms and patient refused CPAP or oral appliance, we decided not to treat. - encourage weight management with the patient - see plan below for anxiety and insomnia management CHRONIC SLEEP ONSET/ SLEEP MAINTENANCE INSOMNIA - due to combination of poor sleep hygiene, irregular sleep schedule, depression, anxiety, untreated sleep apnea, and chronic pain. Meds may be a contributing factor as well. - discussed with patient good sleep hygiene - hx of Bipolar, previously on benzo for anxiety and sleep management, now on Klonopin for anxiety. - we had a lengthy discussion about sleep hygiene and medication, would be a great candidate for CBT-I, not interested - we mutually agreed to trial Temazepam at night for sleep - stop taking Trazodone and never combine with her Klonopin at night - encouraged patient to taper down or stop medical marijuana INADEQUATE SLEEP HYGIENE / EXCESSIVE DAYTIME SLEEPINESS (EDS) / FATIGUE + SLEEP DISTURBANCES + - due to combination of poor sleep hygiene, irregular sleep schedule, depression, anxiety, untreated sleep apnea, and chronic pain. Meds may be a contributing factor as well. - discussed with patient good sleep hygiene - Important to get good daily dose of natural sunlight to help wakefulness & energy - Reduce artificial lighting at night, especially light from screens (i.e. cellphones, TV, tablets) - Exercise is helpful for your mental and physical health - Have a consistent bedtime routine 1 hours prior to your usual bedtime - If going to take a nap, it should be less than 30 minutes and prior to 3 pm - Limit alcohol and caffeine use - Avoidance of marijuana and/or CBD use RESTLESS LEG SYNDROME - previously positive symptoms - iron was noted to be low, started on iron tablets - currently taking in morning with pineapple juice - tolerating well, no GI complaints - controlling symptoms well. OBESITY - BMI most recent 50.07 - no significant weight changes noted or reported - Encouraged patient to lose weight with diet and exercise. - Weight loss can help in the extermination inspector treatment of APRIL. - Declined weight loss management assistance consult - Defer management to PCP ANXIETY & BIPOLAR - denies any SI, HI or hallucinations - currently on meds, well controlled - defer management to Psychiatry MEDICAL MARIJUANA USE - OARRS report noted marijuana use - encouraged patient to taper down or completely stop - never smoke, always choose the safer version of medical marijuana such as oils or edibles - never combine marijuana and benzo Medication Management - Temazepam I have personally reviewed the OARRS report for this patient. This report is scanned into the electronic medical record. I have considered the risks of abuse, dependence, addiction and diversion. I believe that it is clinically appropriate for this patient to be prescribed this medication. Based on the above findings and the clinical response to the controlled substance medications and improvement of the activities of daily living, sleep, and work performance. We made this complex decision to start this therapy in light of the evidence of the patient's responsibility in using these medications as prescribed for their condition. I explained and discussed with the patient and stressed the importance of knowing the side effects and the addicting and habit forming nature of the dangerous drugs we are using to treat the symptoms. - if it helps with sleep, will have patient sign CSA next session All of patient's questions were answered. She verbalizes understanding and agreement with my assessment and plan. documented in this encounter [facility] Work Phone: 07-27-2023 Instructions JOSE Garcia - 07/27/2023 1:00 PM EST It was a pleasure meeting you today Janneth Cuevas As we discussed today in clinic: 1. We reviewed your sleep study, at this time, we have decided to not treat your mild APRIL. 2. Encouraged to lose weight. Remember weight plays an important role in APRIL 3. Remember, don't drive when sleepy. 4. Stay off your back when sleeping. 5. For your Insomnia, we will trial Temazepam at night as needed for sleep. Do not take with Trazodone or your Klonopin Education handouts given: Medication information Please follow-up in 1 month ALWAYS BRING YOUR CPAP / BIPAP WITH YOU TO EVERY APPOINTMENT! THANKS FOR QUESTIONS AND CONCERNS: 1. In case of problems with machine or mask interface, please contact your DME company first. DME is the company that provides you the machine and/or CPAP supplies. If [employer] if your DME, you can reach them at [phone] or [employer] ([employer]) [phone]. 2. For SLEEP STUDY appointments, please call [phone] ([employer]) or [phone] / [phone] ([employer]) or any other Sleep Lab location please call [phone] 3. For MEDICAL QUESTIONS, MEDICATION REFILLS, or CLINIC APPOINTMENT SCHEDULING, please call [phone] and my advanced practice provider Celia would gladly assist you with any concerns. 4. In the event that you are running more than 10 minutes late to your appointment or 5 minutes to virtual, I will kindly ask you to reschedule. Here at [facility], we wish you a restful sleep! documented in this encounter [facility] Work Phone: 07-26-2023 History of Present illness Narrative 33 F PMH: bipolar, panic DO, Obesity, former smoker Coming in today for thyroid evaluation, referred by PCP Was having multiple symptoms including fatigue, weight issues, palpitions, insomnia Lab trends showing low TSH 0.3 in 2022 with normal FT4, last year TSH was normal with negative TSI and TPO Was placed on propranolol about 6 months ago for migraines No history of lithium use RIGGS-none iodine/contrast exposure -none thyroid ultrasound 04/2023 showing no discrete nodule No illnesses around Jan to Feb, or contrast exposure Past Medical History: Diagnosis Date Body mass index (BMI)40.0-44.9, adult 10/20/2021 BMI 40.0-44.9, adult Crohn's [place] 07/04/2012 Morbid (severe) obesity due to excess calories ([facility]) 10/20/2021 Morbid obesity with BMI of 45.0-49.9, adult Personal history of other diseases of the respiratory system 07/07/2020 History of sore throat Social History Socioeconomic History Marital status: Single Spouse name: Not on file Number of children: Not on file Years of education: Not on file Highest education level: Not on file Occupational History Not on file Tobacco Use Smoking status: Former Packs/day: 1.00 Years: 14.00 Additional pack years: 0.00 Total pack years: 14.00 Types: Cigarettes Quit date: 06/06/2015 Years since quittin.1 Passive exposure: Never Smokeless tobacco: Never Vaping Use Vaping Use: Every day Substances: THC, Flavoring Devices: Pre-filled or refillable cartridge Substance and Sexual Activity Alcohol use: Yes Comment: socailly Drug use: Yes Types: Marijuana Sexual activity: Not on file Other Topics Concern Not on file Social History Narrative Not on file Social Determinants of Health Financial Resource Strain: Not on file Food Insecurity: Not on file Transportation Needs: Not on file Physical Activity: Not on file Stress: Not on file Social Connections: Not on file Intimate Partner Violence: Not on file Housing Stability: Not on file Family History Problem Relation Name Age of Onset Lung cancer Mother 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 Cardiovascular: Rate and Rhythm: Normal rate and regular rhythm. Pulmonary: Comments: Some wheezing Abdominal: Palpations: Abdomen is soft. Musculoskeletal: General: No swelling or tenderness. Normal range of motion. Skin: General: Skin is warm. Comments: + skin tags Neurological: General: No focal deficit present. Mental Status: She is alert and oriented to person, place, and time. Comments: No delay in relaxation of DTR labs and imaging reviewed, pertinent findings listed on HPI and Impression Problem List Items Addressed This Visit Low TSH level - Primary Relevant Orders Thyroid Stimulating Hormone Thyroxine, Free Comprehensive metabolic panel Triiodothyronine, Total Thyrotropin Receptor Antibody Subclinical hyperthyroidism Low TSH/subclinical hyperthyroidism from thyroiditis vs Graves disease Thyroid ultrasound did not show any nodules so no toxic adenoma She is already on propranolol for migraines so she can continue to take this Repeat TFTs now with Trab If still hyperthyroid then will proceed with a thyroid uptake scan Follow up in 4 months documented in this encounter [facility] Work Phone: 07-26-2023 Instructions Mala Torres MD - 07/26/2023 9:20 AM EST -get your thyroid labs now If they are still abnormal then we will proceed with thyroid uptake scan Follow up in 4 months Mala Torres MD Divison of Endocrinology [facility] option 4, then option 1 documented in this encounter [facility] Work Phone: 06-07-2023 Evaluation + Plan note Associated Problem(s): Suspected sleep apnea Per H&P, high risk for APRIL She is agreeable to repeat sleep testing Could be contributing to daytime sleepiness, mood disturbance, RLS symptoms. Requesting in lab testing due to RLS symptoms as well. She is agreeable. [facility] Work Phone: 06-07-2023 Miscellaneous Notes Associated Problem(s): Suspected sleep apnea Per H&P, high risk for APRIL She is agreeable to repeat sleep testing Could be contributing to daytime sleepiness, mood disturbance, RLS symptoms. Requesting in lab testing due to RLS symptoms as well. She is agreeable. Associated Problem(s): Insomnia Likely multifactorial including anxiety, depression, restless leg, suspected sleep apnea. Currently on trazodone 100 mg at bedtime per psychiatry. Will consider adjusting higher pending sleep study Also takes klonopin PRN and drinks 1-2x ETOH beverages, smokes marijuana to sleep Consider CBT-I referral, caution with bipolar diagnosis, however She has failed ambient, seroquel, xanax, remeron in the past Associated Problem(s): Restless leg syndrome Discussed possible triggers such as ETOH and marijuana. She verbalized motivation to stop using both Iron labs ordered today, will consider replacement pending results. She plans to complete today Consider RLS medication PRN labs. documented in this encounter [facility] Work Phone: 06-07-2023 Evaluation + Plan note Associated Problem(s): Insomnia Likely multifactorial including anxiety, depression, restless leg, suspected sleep apnea. Currently on trazodone 100 mg at bedtime per psychiatry. Will consider adjusting higher pending sleep study Also takes klonopin PRN and drinks 1-2x ETOH beverages, smokes marijuana to sleep Consider CBT-I referral, caution with bipolar diagnosis, however She has failed ambient, seroquel, xanax, remeron in the past [facility] Work Phone: 06-07-2023 Evaluation + Plan note Associated Problem(s): Restless leg syndrome Discussed possible triggers such as ETOH and marijuana. She verbalized motivation to stop using both Iron labs ordered today, will consider replacement pending results. She plans to complete today Consider RLS medication PRN labs. [facility] Work Phone: 06-07-2023 History of Present illness Narrative Images from the original note were not included. Patient: Janneth Cuevas [id number] : 1990 -- AGE 32 y.o. Provider: JOSE Yu Location [facility] Service Date: 06/07/2023 [facility] New Visit Note HISTORY OF PRESENT ILLNESS The patient's referring provider is: Anay Cantu DO HISTORY OF PRESENT ILLNESS Janneth Cuevas is a 32 y.o. female who presents to a [facility] for a sleep medicine evaluation with concerns of APRIL, RLS, excessive daytime sleepiness. 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 The patient has h/o allergic rhinitis, obesity, GERD, anxiety, bipolar, migraine, RLS, asthma. Past Sleep History Patient has the following sleep-related diagnoses: decreased REM sleep on previous study done about 10 years ago at [facility] Nothing else came of testing at that time Current History On today's visit, the patient reports difficulty getting to sleep. Notes she has had trouble sleeping for most of her life. Had sleep testing done about 10 years ago at [facility], nothing really came of the testing. She feels anxious, ruminates at night often. Notes recently increased in leg twitching prior to bed, when she is sitting relaxing. She notes her father is an alcoholic, both her sisters drink often as well. All have trouble getting to sleep. Mom wakes often in the night, not sure if anyone else has She has been on several sleep medications in the past with psychiatry-- ambien (felt she was getting addicted to it, taking for a high), seroquel felt too groggy, xanax, remeron (weight gain). She often takes klonopin in the AM, but sometimes takes it for sleep as well. Helps her fall asleep easily when she does. Notes she is currently taking trazodone 100 mg at bedtime, does not think it is as effective as it used to be. In the process of changing psychiatrists, however. Has been on up to 300 mg of trazodone in the past, remembers feeling more groggy at that time. Feels like most days she could keep sleeping regardless of how much sleep she got the night before. Notes she sleeps alone, not sure how bad she snores or if she moves her legs at night. She does endorses waking herself snoring/ gasping at times. Wakes to use the bathroom on occasion. Wakes almost every night with sweating around her neck, soaking her shirt, grinds her teeth, AM dry mouth and headaches. States she constantly has a headache now. Was recently started on propanolol and imitrex which has helped some. Feels she is irritable most days; trouble with memory and concentration. Sleep schedule on weekdays / work days: Varies Preferred sleeping position: stomach Sleep-related ROS: Problems going to sleep: rumination/thoughts/worries, frustration with not sleeping, and restless legs Sleep Maintenance: wakes up about 0-1 times per night Problems staying asleep Problems Staying Asleep: thoughts/worry Breathing during sleep: snoring, snorting during sleep, witnessed apneas, night sweats, and nocturnal reflux symptoms RLS screen: RLSSCREEN: - Sensations: Patient has unusual sensations in their extremities that cause an urge to move them - Frequency: at night when going to sleep, daily, and frequently - Relief: Symptoms ARE/ARENOT: are not relieved with movement - Circadian: Symptoms ARE/ARENOT: are typically improved later in the night. - Movement: Patient has not been told that their legs kick or jerk during sleep Sleep-related behaviors: DENIES dreams upon falling asleep hypnagogic/hypnopompic hallucinations sleep paralysis sleep attacks symptoms of cataplexy sleep walking kicking, punching, or acting out dreams sleep eating nightmares Daytime Symptoms On awakening patient reports: wake unrefreshed, feels sleepy, morning headaches, and morning dry mouth Patient report some daytime symptoms including: Patient denies daytime symptoms including: Fatigue: symptoms bothersome, but easily able to carry out all usual work/school/family activities ESS: 6 JINA: 14 FOSQ: 31 REVIEW OF SYSTEMS REVIEW OF SYSTEMS Review of Systems All other systems reviewed and are negative. ALLERGIES AND MEDICATIONS ALLERGIES Allergies Allergen Reactions Yogurt Swelling Ambien [Zolpidem] Other addiction Erythromycin Nausea/vomiting Ketorolac Other Sulfacetamide Itching Vancomycin Hives MEDICATIONS Current Outpatient Medications Medication Sig Dispense Refill clonazePAM (KlonoPIN) 1 mg tablet TAKE 1 TABLET BY MOUTH 2 TIMES A DAY NEEDED FOR PANIC ATTACKS omeprazole (PriLOSEC) [address] capsule Take 1 capsule (40 mg) by mouth once daily. Do not crush or chew. 30 capsule 11 OXcarbazepine (Trileptal) 300 mg tablet TAKE 1 AND 1/2 TABLETS BY MOUTH 2 TIMES A DAY propranolol (Inderal) 20 mg tablet Take 1 tablet (20 mg) by mouth 2 times a day. 60 tablet 5 SUMAtriptan (Imitrex) 50 mg tablet Take 1 tablet (50 mg) by mouth 1 time if needed for migraine. May repeat after 2 hours. 9 tablet 5 traZODone (Desyrel) 100 mg tablet Take 1 tablet (100 mg) by mouth once daily at bedtime. venlafaxine XR (Effexor-XR) 75 mg 24 hr capsule Take 1 capsule (75 mg) by mouth once daily. No current facility-administered medications for this visit. PAST HISTORY PAST MEDICAL HISTORY Past Medical History: Diagnosis Date Body mass index (BMI)40.0-44.9, adult 10/20/2021 BMI 40.0-44.9, adult Crohn's colitis ([facility]) 07/04/2012 Morbid (severe) obesity due to excess calories ([facility]) 10/20/2021 Morbid obesity with BMI of 45.0-49.9, adult Personal history of other diseases of the respiratory system 07/07/2020 History of sore throat PAST SURGICAL HISTORY: Past Surgical History: Procedure Laterality Date OTHER SURGICAL HISTORY 12/21/2018 No history of surgery FAMILY HISTORY Family History Problem Relation Name Age of Onset Lung cancer Mother DOES/DOES NOT EC: does have a family history of sleep disorder. Insomnia SOCIAL HISTORY She reports that she quit smoking about 8 years ago. Her smoking use included cigarettes. She has a 14.00 pack-year smoking history. She has never been exposed to tobacco smoke. She has never used smokeless tobacco. She reports current alcohol use. She reports current drug use. Drug: Marijuana. She currently lives alone. 1-2x drinks per day; usually wine cooler or similar. Marijuana nightly PHYSICAL EXAM VITAL SIGNS: BP 136/74 (BP Location: Left arm, Patient Position: Sitting, BP Cuff Size: Large adult) Pulse 74 Ht 1.6 m (5' 3 ) Wt 128 kg (283 lb) LMP 04/25/2023 (Approximate) SpO2 97% BMI 50.13 kg/m PREVIOUS WEIGHTS: Wt Readings from Last 3 Encounters: 06/07/23 128 kg (283 lb) 05/23/23 131 kg (288 lb 8 oz) 05/13/23 127 kg (281 lb) Physical Exam Physical Exam Constitutional: Alert and oriented, cooperative, no obvious distress HEENT: Non icteric or anemic, EOM WNL bilaterally Upper Airway Examination: Modified Mallampati Class: 3 OP Lateral wall narrowing grade: 2 Tonsil Grade: 1 No high arched palate Tongue Scalloping: Y mild Retrognathia: N Overjet: N Neck: Supple, no JVD, no goiter, no adenopathy Chest: CTA bilaterally, no wheezing, crackles, rubs Cardiac: RRR, S1 and S2, no murmur, rub, thrill Abdomen: Obese, Soft, nontender, no masses, no organomegaly Extremities: No clubbing, no LL edema Neuromuscular: Cranial nerves grossly intact, no focal deficits RESULTS/DATA Bicarbonate (mmol/L) Date Value 02/22/2023 30 07/21/2022 26 10/14/2021 27 ASSESSMENT/PLAN Ms. Cuevas is a 32 y.o. female and She was referred to the [facility] for evaluation of disturbed sleep, suspected APRIL, RLS. Problem List and Orders Problem List Items Addressed This Visit ICD-10-CM Insomnia G47.00 Likely multifactorial including anxiety, depression, restless leg, suspected sleep apnea. Currently on trazodone 100 mg at bedtime per psychiatry. Will consider adjusting higher pending sleep study Also takes klonopin PRN and drinks 1-2x ETOH beverages, smokes marijuana to sleep Consider CBT-I referral, caution with bipolar diagnosis, however She has failed ambient, seroquel, xanax, remeron in the past Restless leg syndrome - Primary G25.81 Discussed possible triggers such as ETOH and marijuana. She verbalized motivation to stop using both Iron labs ordered today, will consider replacement pending results. She plans to complete today Consider RLS medication PRN labs. Relevant Orders Ferritin Iron and TIBC In-Center Sleep Study (Sleep Provider Only) Suspected sleep apnea R29.818 Per H&P, high risk for APRIL She is agreeable to repeat sleep testing Could be contributing to daytime sleepiness, mood disturbance, RLS symptoms. Requesting in lab testing due to RLS symptoms as well. She is agreeable. Relevant Orders In-Center Sleep Study (Sleep Provider Only) Other Visit Diagnoses Codes REM sleep behavior disorder G47.52 Not likely as patient denies dream enactment Relevant Orders In-Center Sleep Study (Sleep Provider Only) documented in this encounter [facility] Work Phone: 06-07-2023 Instructions JOSE Yu - 06/07/2023 9:30 AM EST Images from the original note were not included. I will be off on leave of absence June through September. Please schedule follow up with one of my colleagues if need to be seen during this time frame. Dr. Salvatore Whyte, [facility] Arnold or [facility] and Nay Marcelo CNP- [place] Dr. Emmett Whyte and Alfredo Wagner, [place], Mariella Whyte Medina Selen Bruck. MORTGAGE LOAN UNDERWRITER, Farrah and [employer] Restless Legs Syndrome: a clinical diagnosis wherein you have the urge to move your legs while sitting or lying down, occurring usually at night or worse at night, and is partially or completely relieved with movement (massage, stretching, walking etc). RLS is usually related with low iron in the brain and gets worse with caffeine, nicotine, alcohol, and certain medications (antidepressants, antiemetics, sedating antihistamines, etc). General care for RLS: If you are taking medications that triggers or worsens RLS, consider consulting with sleep specialist and/or prescribing doctor. Avoid nicotine, alcohol, and caffeine containing substances, such as chocolate and sodas, as these can make symptoms worse. Try massage, exercise, leg compression, stretching or warm baths before bed time. We will consider checking lab work to see if certain vitamins or minerals are depleted. (example: iron levels) We will consider medication as needed. [facility] [address] [facility] [address] [place] [address] NAME: Janneth Cuevas DATE: 06/07/23 DIAGNOSIS: 1. Restless leg syndrome Ferritin Iron and TIBC In-Center Sleep Study (Sleep Provider Only) 2. REM sleep behavior disorder Referral to Adult Sleep Medicine In-Center Sleep Study (Sleep Provider Only) 3. Suspected sleep apnea In-Center Sleep Study (Sleep Provider Only) Thank you for coming to the Sleep Medicine Clinic today! Your sleep medicine provider today was: JOSE Yu Below is a summary of your treatment plan, other important information, and our contact numbers: TREATMENT PLAN: - Get your sleep study scheduled - Follow-up in 2 months. - If not already done, sign up for 'My Chart' and send prescription requests or messages through this Scheduling a Sleep Study Call the Sleep Testing Center to speak with a sleep testing supervisor pumping station to book your overnight sleep study procedure at one of our adult and pediatric-friendly sleep labs. Overnight sleep studies may be scheduled on a weekday or weekend. We have child life services on a case by case basis at the [facility] location. We also perform daytime testing for shift workers on a case by case basis. Locations for sleep studies are: [facility] ([facility]), [facility], [facility], [place], [place]. Bring your usual medications and nightly routine items for your sleep study. In order to fall asleep faster in sleep lab, we advise patients to wake up earlier on the morning of the scheduled testing and avoid napping prior to testing. Sometimes, your provider may prescribe a sleep aid to be taken at lights out in the sleep lab. If you are taking a sleep aid, please have somebody pick you up after the sleep testing. Results of your sleep study will be given to the ordering clinician. Please contact their office for results or follow up as directed by your clinician. For additional information about the sleep medicine services, please call [phone] Restless Legs Syndrome: a clinical diagnosis wherein you have the urge to move your legs while sitting or lying down, occurring usually at night or worse at night, and is partially or completely relieved with movement (massage, stretching, walking etc). RLS is usually related with low iron in the brain and gets worse with caffeine, nicotine, alcohol, and certain medications (antidepressants, antiemetics, sedating antihistamines, etc). General care for RLS: If you are taking medications that triggers or worsens RLS, consider consulting with sleep specialist and/or prescribing doctor. Avoid nicotine, alcohol, and caffeine containing substances, such as chocolate and sodas, as these can make symptoms worse. Try massage, exercise, leg compression, stretching or warm baths before bed time. We will consider checking lab work to see if certain vitamins or minerals are depleted. (example: iron levels) We will consider medication as needed. Instructions - Common APRIL Recs: - For your sleep apnea, continue to use your PAP every night and use it whenever you are sleeping. - Avoid alcohol or sedatives several hours prior to sleeping. - Get additional supplies for your PAP (e.g., mask, hose, filters) every 3 months or as your insurance allows from your [employer] company. Replacement cushions for your PAP mask can be requested monthly if airseals are an issue. - Remember to clean your mask, tubings, and water chamber regularly as instructed. - Avoid driving or operating heavy machinery when drowsy. A person driving while sleepy is five (5) times more likely to have an accident. If you feel sleepy, rack puller and take a short power nap (sleep for less than 30 minutes). Otherwise, ask somebody to drive you. EASY WAYS TO IMPROVE YOUR SLEEP: 1. Go to bed and wake up at the same time every day. Aim for 8 hours but some people need less, some need more. Get out of bed if you are not sleeping. Limit naps to 20 min or less. 2. Expose yourself to daylight and/ or bright light in the morning. Go outside or spend time near a window each morning. You can use a light box (found on [employer]) if you wake before the sunrise. Limit light exposure in the evenings (including electronic usage). Try meditation, reading, stretching, deep breathing, warm shower or bath, or yoga nidra as part of your bedtime routine. There are many great FREE, videos or audio tracks on YouTube/ mBlox, etc for guidance. 3. Exercise, in some form, EVERY day, but not too close to bedtime. Consider making this part of your routine at the start of your day, followed by a cool shower. 4. Eat meals at roughly the same time every day. Make sure you are prioritizing fruits, vegetables, whole grains, lean proteins. 5. Time your caffeine intake. Make sure you are not drinking caffeine within 8 to 12 hours prior to your bedtime. 6. Avoid marijuana, alcohol, and nicotine. They will reduce sleep quality in any quantity. 7. Learn to manage anxiety. Psychology services at can be reached at [phone] to schedule an appointment. IMPORTANT INFORMATION: Call 911 for medical emergencies. Our offices are generally open from Tuesday-Tuesday, 9 am - 5 pm. If you need to get in touch with me, you may either call me and my team(number is below) or you can use [employer]. If a referral for a test, for CPAP, or for another specialist was made, and you have not heard about scheduling this within a week, please call scheduling at [phone] ([phone]). If you are unable to make your appointment for clinic or an overnight study, kindly call the office at least 48 hours in advance to cancel and reschedule. If you are on CPAP, please bring your device's card to each clinic appointment unless told otherwise by your provider. There are no supporting services by either the sleep doctors or their staff on weekends and Holidays, or after 5 PM on weekdays. If you have been asked to come to a sleep study, make sure you bring toiletries, a comfy pillow, and any nighttime medications that you may regularly take. Also be sure to eat dinner before you arrive. We generally do not provide meals. PRESCRIPTIONS: We require 7 days advanced notice for prescription refills. If we do not receive the request in this time, we cannot guarantee that your medication will be refilled in time. Please contact the sleep nurses listed below for refills or request via [employer]. IMPORTANT PHONE NUMBERS: Sleep Medicine Clinic Appointments (for Pediatric Sleep Clinic): [phone] - option 1 Appointments (for Adult Sleep Clinic): [phone]) - option 2 Appointments (For Sleep Studies): [phone]) - option 3 Behavioral Sleep Medicine: [phone] Sleep Surgery: [phone] ENT (Otolaryngology): [phone] Headache Clinic (Neurology): [phone] Neurology: [phone] Psychiatry: [phone] Pulmonary Function Testing (PFT) Center: [phone] Pulmonary Medicine: [phone] [employer] [facility] (DME): [place] (DME): [phone] [facility] ([facility]): [phone] Our Adult Sleep Medicine Team (Please do not hesitate to call the office or sleep nurse with any questions between appointments): Adult Sleep Nurses (Rachelle Lei, VELASQUEZ and Matilde Gonzalez RN): For clinical questions and refilling prescriptions: [phone] Email sleep diaries and other documents at: [email or web address] Adult Sleep Medicine Secretaries: Gwen Raman (For Jonathan/[place]/Krise/Strohl/Yeh/A dams): P: [phone] F: [phone] Kareen Dietz (For Tang/[place]): P: [phone] Kaur Olea (For Jurcevic/Blank): P: [phone] F: [phone] Celia Burton (For [place]): P: [phone] F: [phone] Lucrecia Munson (For Aysha/Marcial/Zakhary): P: [phone] F: [phone] Sophie Snow (For Arnold/Hewitt): P: [phone] F: [phone] Adult Sleep Medicine Advanced Practice Providers: Marlon Patino ([place], [place]) Luciana Ceja ([place], [facility]) Opal Anglin CNP ([place], [place], [place]) Ayesha Wagner CNP ([place], [place], [place]) Gian Connell ([place], [place], [place]) Phu Hewitt CNP ([place], [place]) Our Sleep Testing Center ([facility]) Locations: Our team will contact you to schedule your sleep study, however, you can contact us as follow: Main Phone Line (scheduling only): [phone]), option 3 Adult and Pediatric Locations [facility] (6 years and older): [facility] - 4th floor ([address] [facility]) After hours line: [phone] [facility] (Main campus: All ages): [facility], 6th floor. After hours line: [phone] [place] (5 years and older; younger considered on [id number]-[id number] basis): [address]; [address], [address]. Scheduling After hours line: [phone] [place] (6 years and older): [address]; [address]; [address] [place] (6 years and older): [address] [facility], [address] After hours line: [phone] [facility] (13 years and older) in [place]: [address], 2nd floor After hours line: [phone] [facility] (13 year and older): [address] After hours line: [phone] (Home studies out of [facility]) Adult Only Locations: [place] (18 years and older): [address] [facility], 2nd floor [place] (18 years and older): [address] [facility]; 4th floor After hours line: [phone] [facility] (18 years and older) at [place]: [address] [place] [address] After hours line: [phone] CONTACTING YOUR SLEEP MEDICINE PROVIDER: Send a message directly to your provider through My Chart , which is the email service through your Records Account: [email or web address] Call [phone] and leave a message. One of the administrative assistants will forward the message to your sleep medicine provider through My Chart and/or email. Your sleep medicine provider for this visit was: JOSE Yu In the event that you are running more than 15 minutes late to your appointment, I will kindly ask you to reschedule. documented in this encounter [facility] Work Phone: 05-23-2023 History of Present illness Narrative Subjective Patient ID: Janneth Cuevas is a 32 y.o. female who presents for Headache (Constant/worsening x approx 1 month/No injury). HPI Patient of Dr. Cantu - presenting for constant headaches turning into migraines - has history of migraines on the chart. No prior imaging of head or brain Has had headaches for most of her life -Had gone to a chiropractor in the past to treat loss of cervical lordosis but this became a cost issue ($30 for each visit) Does some stretches on her own, neck feels like it needs to crack and it cracks easily Has tried a massage gun for upper back tension as well. 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 Sun sensitive, pain spreads to the whole head which is how she defines a migraine Not worse with activity, not worse with laying down, headaches do not wake her from sleep No prior prentative medication, no CT or MRI Headaches are similar to those in the past, but more constant and persistent History of head trauma, none recent Is scheduled to see endocrine for abnormal thyroid studies Recently saw GI for swallowing issues Sleeping well at night recently due to work, normally has more trouble sleeping. Scheduled for a sleep study in June. Had been seen at an about 2-3 weeks ago and had antibiotics and steroids. Objective Visit Vitals BP 116/78 (BP Location: Right arm, Patient Position: Sitting, BP Cuff Size: Large adult) Pulse 84 Temp 36.5 C (97.7 F) Resp 14 Wt 131 kg (288 lb 8 oz) LMP 04/25/2023 (Approximate) SpO2 95% BMI 51.11 kg/m OB Status Having periods Smoking Status Former BSA 2.41 m Physical Exam Vitals reviewed. Constitutional: General: She is not in acute distress. Appearance: Normal appearance. HENT: Head: Normocephalic and atraumatic. Right Ear: Tympanic membrane, ear canal and external ear normal. Left Ear: Tympanic membrane, ear canal and external ear normal. Nose: Nose normal. Mouth/Throat: Mouth: Mucous membranes are moist. Pharynx: No posterior oropharyngeal erythema. Eyes: Extraocular Movements: Extraocular movements intact. Conjunctiva/sclera: Conjunctivae normal. Pupils: Pupils are equal, round, and reactive to light. Cardiovascular: Rate and Rhythm: Normal rate and regular rhythm. Heart sounds: Normal heart sounds. No murmur heard. Pulmonary: Effort: Pulmonary effort is normal. No respiratory distress. Breath sounds: Normal breath sounds. No wheezing. Musculoskeletal: Cervical back: No rigidity. Lymphadenopathy: Cervical: No cervical adenopathy. Skin: General: Skin is warm and dry. Findings: No rash. Neurological: General: No focal deficit present. Mental Status: She is alert. Mental status is at baseline. Psychiatric: Mood and Affect: Mood normal. Thought Content: Thought content normal. Assessment/Plan Problem List Items Addressed This Visit Migraine headache - Primary Relevant Medications propranolol (Inderal) 20 mg tablet SUMAtriptan (Imitrex) 50 mg tablet Persistent headaches for one month, some are migraine with light and sound sensitivity. No red flag symptoms. Recommend neck exercises for cervical lordosis. Start propranolol daily for prevention. Considered prednisone, but did not do because she had for another illness just recently. Sumatriptan for migraines up to three times per week. documented in this encounter [facility] Work Phone: 05-23-2023 Instructions Heather Yi MD - 05/23/2023 3:00 PM EST Chin tucks Lay with towel under the neck Use stands to raise phone, tablet up to eye level Take breaks when working on puzzles Magnesium supplement 500 mg per day - reduce if you have diarrhea or start at lower doses first. Goal water intake 60-80 oz. Per day Medications: Start propranolol 20 mg once daily at night, if tolerating after one week increase to twice daily. Watch for lightheadedness when getting up. Use imitrex at onset of light sensitivity, vision changes. Do not use with excedrin migraine. Okay to use with advil. 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 She denies any dysphagia to liquids or to solid food. She mentioned that her mouth is always dry and has to drink water all the time or chew a chewing gum. She mentions chronic heartburn associated with spicy food few times a week, denies any nausea or vomiting odynophagia melena hematochezia hematemesis. EGD and colonoscopy 10 years ago at [place] unknown result Family history reviewed, not pertinent to chief complaint 2 bowel movements per day [id number] Takes Advil once a day for headache, social alcohol, positive marijuana use, denies drug use smoking The note was created using voice recognition intelligence officer basic software. Despite proofreading, unintentional typographical errors may be present. Please contact the GI office with any questions or concerns. Current Medications: reviewed A 10 point review of system is negative except for what is mentioned in the HPI Follow up with GI was advised Vital Signs: Reviewed Physical Exam: General: no apparent distress, pleasant and cooperative Skin: Warm and dry, no jaundice HEENT: No scleral icterus, no conjunctival pallor, normocephalic, atraumatic, mucous membranes moist Neck: atraumatic, trachea midline, no JVD Chest: decreased air entry to auscultation bilaterally. No wheezes, rales, or rhonchi CV: Regular rate and rhythm. Positive S1/S2 Abdomen: no distension, +BS, soft, non-tender to palpation, no rebound tenderness, no guarding, no rigidity, no discernible ascites Extremities: no lower extremity edema, Chronic pigmentary changes, no cyanosis Neurological: A&Ox3 , no asterixis Psychiatric: cooperative Investigations: Labs, radiological imaging and cardiac work up were reviewed 1-screen for hepatitis C 2-BMI 49, healthy lifestyle advised, consider weight loss strategies 3-dysphagia described as above, likely multifactorial *Patient mentioned that she has trouble swallowing her saliva with significant mouth dryness, she is currently being evaluated for sleep apnea and possible APRIL, she is possibly a mouth breather, follow, follow sleep study results positive heartburn *positive heartburn diet relate, will consider endoscopy if benefits outweigh risks, lifestyle changes advised, omeprazole daily, check x-ray esophagogram for now 4-incomplete emptying and yask-xn-tjnk bowel movements, start Metamucil daily, Gas-X as needed documented in this encounter [facility] Work Phone: 05-13-2023 Instructions Dino Hsieh MD - 05/13/2023 10:00 AM EST 1-we will need to screen for hepatitis C with a blood test 2-good job following a healthy diet and trying to exercise and lose weight because that will help with your symptoms, consider new weight loss medications among other interventions 3-for heartburn and trouble swallowing we will need to check an x-ray, please start omeprazole 40 mg daily-before breakfast, he can take an extra pill in the afternoon if needed, please elevate the head of the bed 6 to 8 inches, have an early dinner at least 3 hours before sleep, have small frequent meals (5 small meals per day), avoid lying down after meals, avoid spices juices soda tomatoes rao oranges caffeine, other caffeinated beverages, chocolate alcohol NSAIDs smoking fatty food peppermint among others 4-for the bloating and gas distention please start using Metamucil daily, Gas-X [id number] 3 or 4 times a day documented in this encounter [facility] Work Phone: 03-31-2023 History of Present illness Narrative Subjective Patient ID: Janneth Cuevas is a 32 y.o. female who presents for a wellness examination. HPI Diet: unhealthy Supplements/vitamins: none Alcohol use: 1 drink per night Caffeine intake: 2 energy drinks/day Exercise: none Sleep: see below Last dental appointment: Last eye appointment: Anxiety/Depression: denies Contraception: not sexually active Last pap smear: 02/22/2023 negative, no HPV tested. Repeat in 3 years. Fmhx breast cancer: Y, both sides of family-aunts, gma. Fmhx colon cancer: N Tobacco use/Lung cancer screening: N Recreational drug use: N Immunizations: due for Tdap *Abnormal thyroid lab* Fatigue Sleep study confirmed REM sleep disorder in past, not currently following with Sleep Medicine Takes Trazodone at night time and no longer working well Endo appointment is in July for thyroid (overactive) +weight gain Reports not eating well and not exercising Dysphagia Happens often Feels like throat is dry, has to pinch throat in order to swallow +choking Always has to carry water with her, can't use plain water Denies cotton mouth sensation No GERD Had an EGD years ago, does not follow with GI for IBS Review of Systems All other systems reviewed and are negative. Objective BP 130/84 (BP Location: Left arm, Patient Position: Sitting, BP Cuff Size: Large adult) Pulse 72 Temp 36.6 C (97.9 F) Resp 14 Ht 1.6 m (5' 3 ) Wt 131 kg (288 lb) LMP 03/14/2023 (Approximate) SpO2 97% BMI 51.02 kg/m Physical Exam Constitutional: Well developed, well nourished, alert and in no acute distress. Head and Face: Normocephalic, atraumatic. Eyes: Normal external exam. Pupils equally round and reactive to light with normal accommodation and extraocular movements intact. ENT: External inspection of ears normal, tympanic membranes visualized and normal. Nasal mucosa, septum, and turbinates normal. Oral mucosa moist, oropharynx clear. Neck: Supple, no lymphadenopathy or masses. Thyroid not enlarged, no palpable nodules. Cardiovascular: Regular rate and rhythm, normal S1 and S2, no murmurs, gallops, or rubs. Radial pulses normal. No peripheral edema. No carotid bruits. Pulmonary: No respiratory distress, lungs clear to auscultation bilaterally. No wheezes, rhonchi, rales. Abdomen: Soft, nontender, non-distended, normal bowel sounds. No masses palpated. Musculoskeletal: Gait normal. Muscle strength/tone normal of all 4 extremities. Normal range of motion of all extremities. Skin: Warm, well perfused, normal skin turgor and color, no lesions or rashes noted. Neurologic: Cranial nerves II-XII grossly intact. Deep tendon reflexes were 2+ and symmetric. Sensation normal bilaterally. Psychiatric: Mood calm and affect normal. Assessment/Plan Recommendations for women annual wellness exam: Make sure screenings for cervical and breast cancer are up to date if applicable- pap smears age 21-65-up to date Discuss mammogram starting at age 40 or sooner if positive family history of breast cancer STD screening Follow a healthy diet (Dash diet, Mediterranean diet) Exercise 150 min/wk Maintain healthy weight (BMI < 25)-your BMI is 51. Do not smoke Alcohol in moderation (up to 1 drink/day) Get enough sleep (7-8 hours/night) Take a vitamin with folic acid if possibility of Make sure immunizations are up to date (influenza, Tdap)-due for Tdap. Premenopausal women need minimum 1,000 mg calcium and 600-800 IU vitamin D daily (combination of diet + supplement) Talk to your physician if you have concerns about depression or anxiety Visit dentist twice yearly Colon Cancer Screening-n/a Reviewed recent labs with patient today Referral to GI and Sleep Medicine Thyroid labs added Pending Endo appointment documented in this encounter [facility] Work Phone: 03-16-2023 History of Present illness Narrative Subjective Janneth Cuevas is a 32 y.o. female who presents for HPI: Dr Cantu pt Chief Complaint Patient presents with Back Pain Denies injury Immunizations Declines flu vaccine. when did pain start? 5-6 days ago Pt does sit on her floor a lot and read and play with her cats did pt fall or have injury? No If yes, was injury at work? any pain at night? Yes has pain kept patient from doing any activities or going to work? Yes, but cannot sleep at night are any positions more painful - sitting , lying, standing? Sitting what has pt tried for pain? Advil and Tylenol, ice/heat what has helped? Nothing has pt ever had xrays/MRI of back? Yes if so, when? Many years ago. has pt seen ortho? Yes, but for other issues. has pt seen PT? [facility] Social History Tobacco Use Smoking Status Former Packs/day: 1.00 Years: 14.00 Additional pack years: 0.00 Total pack years: 14.00 Types: Cigarettes Quit date: 06/06/2015 Years since quittin.7 Passive exposure: Never Smokeless Tobacco Never Review of Systems: Objective Vitals: 03/16/23 1330 BP: 116/78 BP Location: Left arm Patient Position: Sitting BP Cuff Size: Large adult Pulse: 68 Temp: 36.4 C (97.6 F) TempSrc: Temporal SpO2: 98% Weight: 128 kg (281 lb 4.8 oz) Patient is alert and oriented x 3 , NAD HEAD- normocephalic and atraumatic OFZP-rzliyslphab-gtrtup, lids - normal EARS/NOSE- normal external exam NECK-supple,FROM CV- RRR without murmur PULM- CTA bilaterally, normal respiratory effort RESPIRATORY EFFORT- normal , no retractions or nasal flaring ABD- normoactive BS's EXT- no edema,NT SKIN- no abnormal skin lesions noted NEURO- no focal deficits PSYCH- pleasant, normal judgement and insight BACK- upper back- diffuse trapezius tenderness and tightness Thoracic vertebrae-NT throughout extension- painful with extreme movement flexion- minimal discomfort Thoracic paraspinal muscles- tight spasm on the bilateral lumbar muscles BP Readings from Last 3 Encounters: 03/16/23 116/78 02/22/23 116/81 07/22/22 110/60 Wt Readings from Last 3 Encounters: 03/16/23 128 kg (281 lb 4.8 oz) 02/22/23 129 kg (284 lb 1.6 oz) 07/22/22 126 kg (278 lb 8 oz) BMI Readings from Last 3 Encounters: 03/16/23 49.83 kg/m 02/22/23 50.33 kg/m 07/22/22 49.33 kg/m The number and complexity of problems addressed is considered moderate. The amount and/or complexity of data reviewed and analyzed is considered moderate. The risk of complications and/or morbidity/mortality of patient is considered moderate. Overall, this patient encounter is considered a moderate risk visit. Benefit/Side Effects Oral steroids: Benefits of steroids- They relieve the inflammation, pain and discomfort of many different diseases and conditions. Side effects of oral corticosteroids- Because oral corticosteroids affect your entire body instead of just a particular area, this route of administration is the most likely to cause significant side effects. Side effects depend on the dose of medication you receive and may include: Fluid retention, causing swelling in your lower legs High blood pressure Problems with mood swings, memory, behavior, and other psychological effects, such as confusion or delirium Upset stomach Weight gain, with fat deposits in your abdomen, your face and the back of your neck When taking oral corticosteroids longer term, you may experience: Elevated pressure in the eyes (glaucoma) Clouding of the lens in one or both eyes (cataracts) A round face (hou face) High blood sugar, which can trigger or worsen diabetes Increased risk of infections, especially with common bacterial, viral and fungal microorganisms Thinning bones (osteoporosis) and fractures Suppressed adrenal gland hormone production that may result in a variety of signs and symptoms, including severe fatigue, loss of appetite, nausea and muscle weakness Thin skin, bruising and slower wound healing Declines off work Assessment/Plan 1. Back pain, unspecified back location, unspecified back pain laterality, unspecified chronicity methylPREDNISolone (Medrol Dospak) 4 mg tablets cyclobenzaprine (Flexeril) 5 mg tablet Referral to Physical Therapy 2. Muscle spasm methylPREDNISolone (Medrol Dospak) 4 mg tablets cyclobenzaprine (Flexeril) 5 mg tablet Referral to Physical Therapy 3. Strain of trapezius muscle, unspecified laterality, initial encounter Orders Placed This Encounter Procedures Referral to Physical Therapy Refer to PT Start medrol dose pack Use flexeril as needed Call if no better or if symptoms worsen documented in this encounter [facility] Work Phone: 02-22-2023 Note 05 Date of Procedure: 02/22/2023 Pathologist: [facility], Cytology Date Reported: 03/08/2023 Date Received: 02/22/2023 Submitting Physician: ANAY CANTU, DO FINAL CYTOLOGICAL INTERPRETATION A. THINPREP PAP CERVICAL: Specimen adequacy: SATISFACTORY FOR EVALUATION. Quality Indicator: Endocervical/transformation zone component is present. General Categorization: NEGATIVE FOR INTRAEPITHELIAL LESION OR MALIGNANCY. Descriptive Interpretation: FUNGAL ORGANISMS MORPHOLOGICALLY CONSISTENT WITH RAMON SPECIES. Ancillary Testing: Specimen does not meet the requisition-stated criteria for HPV testing. See Pap test interpretation above. This specimen has been analyzed by the valuescopePrep Imaging System (Fandeavor.), an automated imaging and review system, which assists the laboratory in evaluating cells on ThinPrep Pap tests. Following automated imaging, selected cruz from every slide were reviewed by a chief growth officer and/or pathologist. Electronically Signed Out By [facility], Cytology//JRACHEL By the signature on this report, the individual or group listed as making the Final Interpretation/Diagnosis certifies that they have reviewed this case. Diagnostic interpretation performed at [address] [place] [address] Educational Note: Cervical cytology is a screening procedure primarily for squamous cancers and precursors and has associated false-negative and false-positive results as evidenced by published data. Your patient?s test should be interpreted in this context, together with patient?s history and clinical findings. Regular sampling and follow-up of unexplained clinical signs and symptoms are recommended to minimize false negative results. Clinical History Date of Last Menstrual Period: 02/12/2023 Other Clinical Conditions: HPV Reflex for ASC-US only - Include HPV Genotype EPIC Order Description: GYNECOLOGIC CYTOLOGY CONSULTATION Specimen Information: ThinPrep, CERVIX, SCREENING Clinical Diagnosis History: Z12.4-Screening for cervical cancer Perform HPV HR test? Reflex if ASCUS only Include HPV Genotype? Yes Source of Specimen A: THINPREP PAP CERVICAL [facility] Department of Pathology [address] [place] [id number] [facility] Comment on above: Performed By: #### C #### [facility] [address] [place] [address] [place] [address] 02-22-2023 History of Present illness Narrative Subjective Patient ID: Janneth Cuevas is a 32 y.o. female who presents for severe cramping , Spasms, and Earache. Patient declines flu vaccine today. 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 Cycles are regular Last pap smear-several years ago, was diagnosed with HPV Mom-lung cancer Dad-oral cancer (h/o HPV) Ear Pain (bilateral) Saw ENT for this in the past and told she has TMJ +seasonal allergies Denies nasal congestion Has intermittent tinnitus Has bitten through mouth guards for bruxism Review of Systems See HPI Objective BP 116/81 (BP Location: Right arm, Patient Position: Sitting, BP Cuff Size: Large adult) Pulse 79 Temp 36.7 C (98 F) (Temporal) Resp 16 Ht 1.6 m (5' 3 ) Wt 129 kg (284 lb 1.6 oz) LMP 02/12/2023 SpO2 97% BMI 50.33 kg/m Physical Exam Constitutional: Well developed, well nourished, alert and in no acute distress. Head and Face: Normocephalic, atraumatic. Eyes: Normal external exam. ENT: External inspection of ears normal, tympanic membranes visualized and normal. Nasal mucosa, septum, and turbinates normal. Oral mucosa moist, oropharynx clear. Mouth: MMM, jaw deviation to the right with opening. +clicking of jaw on left side with bilateral TTP at TMJ. Neck: Supple, no lymphadenopathy or masses. Thyroid not enlarged, no palpable nodules. Cardiovascular: Regular rate and rhythm, normal S1 and S2, no murmurs, gallops, or rubs. Radial pulses normal. No peripheral edema. No carotid bruits. Pulmonary: No respiratory distress, lungs clear to auscultation bilaterally. No wheezes, rhonchi, rales. Abdomen: Soft, nontender, nondistended, normal bowel sounds. No masses palpated. Genitourinary: External genitalia and vagina normal. Urethra normal. No suprapubic tenderness to palpation. +moderate white vaginal discharge but no bleeding. Cervix normal. Uterus normal, no enlargement or masses palpated. Adnexa normal, no enlargement or masses palpated. Musculoskeletal: Gait normal. Skin: Warm, well perfused, normal skin turgor and color, no lesions or rashes noted. Neurologic: Cranial nerves II-XII grossly intact. Psychiatric: Mood calm and affect normal. Assessment/Plan Performed pap smear and vaginitis swab today, we will contact you with results Will order pelvic ultrasound in near future if needed Consider using mouth placards (DDM) Please schedule with a dentist to address TMJ [email or web address] [facility] [address] [place] [address] Fasting labs ordered Schedule CPE documented in this encounter [facility] Work Phone: 04-21-2022 History of Present illness Narrative History of Present [id number] female with right hand and thumb pain. 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 She states that she has we had worsening pain as result of this. She does have a history of trauma to this hand she smashed her thumb in the door approximately 1 month ago and hit her hand against a wall approximately 2 months ago. Presents today she feels like she is not getting better.Review of SystemsGENERAL: NegativeGI: NegativeMUSCULOSKELETAL: See HPISKIN: NegativeNEURO: NegativePhysical ExamGeneral: No acute distress alert and orient [id number] examination of right hand: Nontender palpation about the wrist. No pain with flexion extension at the wrist no pain with radial ulnar deviation. Negative fovea. Exquisite tenderness to palpation about the thumb involving the proximal distal phalanges. Able to make a fist without difficulty. Thumb apposition and opposition intact. Able to extend the thumb without difficulty. Overlying skin is clean dry intact. Mild to moderate edema about the hand diffusely. Moderate tenderness to palpation dorsal hand over the second and third metacarpals. Neurovascular intact.ImagingRight hand: No acute osseous abnormality no fracture or dislocation appreciated.[id number] female with right hand sprain overuse injuryPlanAs the patient has had increased requirements regarding her work and this hand over the past month she has had increasingly severe discomfort. I will provide her today with a thumb spica splint to provide some immobilization and some comfort. Also will prescribe some Voltaren cream to place over the affected area. Recommend activities as tolerated. Using pain as a guide. If patient fails to improve over the next 4 to 6 weeks I will have her follow-up with Dr. Villareal for further evaluation. [facility] Work Phone: 07-28-2021 Chief complaint Narrative - Reported An interactive audio and video telecommunication system which permits real time communications between the patient (at the originating site) and provider (at the distant site) was utilized to provide this telehealth service.Verbal consent was requested and obtained from JANNETH CUEVAS on this date, 07/28/2021 10:30 AM , for a telehealth visit.States she is following up on right lower quadrant abdominal pain. States she went to the ER and did numerous test with no abnormalities found. States she is still experiencing pain and wants something prescribed for pain.Denies any other concerns at this time. [facility] Work Phone: 11-21-2020 Chief complaint Narrative - Reported An interactive audio and video telecommunication system which permits real time communications between the patient (at the originating site) and provider (at the distant site) was utilized to provide this telehealth service.Verbal consent was requested and obtained from JANNETH CUEVAS on this date, 11/21/2020 01:30 PM , for a telehealth visit.Patient with complaints of headache / sinus pain, throat irritation, cough, fatigue, muscle ache, chills and fever, intermittent nausea and vomiting, dizziness. [facility] Work Phone: 11-20-2019 History of Present illness Narrative Patient is a 30 year female who CONSULTED AT [facility] today with complaints of headache / sinus pain, throat irritation, cough, fatigue, muscle ache, chills and fever, intermittent nausea and vomiting, dizziness, Patient states that present condition started about 3 days ago. Patient denies history of recent travel, exposure to person/people who tested positive for COVID 19, nor exposure to person/people with flu like symptoms. Patient states nausea minimal and vomiting 2 - 3 x a day for 2 days only. Vomitus is previously ingested food, non bilous, no blood, no coffee ground material. She does get seasonal allergies that only effect her eyes. She is taking Excedrin and Tylenol cold and flu. She did get her first shot of Moderna Covid vaccination. [facility] Work Phone: Chief complaint Narrative - Reported An interactive audio and video telecommunication system which permits real time communications between the patient (at the originating site) and provider (at the distant site) was utilized to provide this telehealth service.Patient is having slight productive cough, temp of 99.1 deg F, chills, dizziness, sore throat, body aches, ;headache, some nausea and vomiting ( not today), and sneezing x 3 days. 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 She does get seasonal allergies that only effect her eyes. She is taking Excedrin and Tylenol cold and flu. She did get her first shot of Moderna Covid vaccination. [facility] Work Phone: Evaluation note Diagnosis Pelvic cramping- Primary Class 3 severe obesity due to excess calories without serious comorbidity with body mass index (BMI) of 50.0 to 59.9 in adult ([facility]) Routine health maintenance Unspecified examination Screening for cervical cancer Screening for malignant neoplasm of the cervix Bruxism Other specified psychophysiological malfunction History of human papilloma virus TMJ (temporomandibular joint disorder) Unspecified temporomandibular joint disorders Chronic ear pain, bilateral documented in this encounter [facility] Work Phone: Evaluation note* Diagnosis Back pain, unspecified back location, unspecified back pain laterality, unspecified chronicity- Primary Muscle spasm Spasm of muscle Strain of trapezius muscle, unspecified laterality, initial encounter documented in this encounter [facility] Work Phone: [phone] note* Diagnosis Encounter for wellness examination in adult- Primary Elevated LDL cholesterol level REM sleep behavior disorder Class 3 severe obesity due to excess calories without serious comorbidity with body mass index (BMI) of 50.0 to 59.9 in adult ([facility]) Morbid obesity ([facility]) Morbid obesity Dysphagia, unspecified type Low TSH level Back pain, unspecified back location, unspecified back pain laterality, unspecified chronicity Muscle spasm Spasm of muscle documented in this encounter [facility] Work Phone: [phone] note* Diagnosis Heartburn- Primary Dysphagia, unspecified type Encounter for screening for other viral diseases Abdominal bloating Flatulence, eructation, and gas pain documented in this encounter [facility] Work Phone: [phone] note* Diagnosis Intractable chronic migraine without aura and without status migrainosus- Primary documented in this encounter [facility] Work Phone: [phone] note* Diagnosis Restless leg syndrome- Primary Restless legs syndrome (RLS) REM sleep behavior disorder Suspected sleep apnea Psychophysiological insomnia Persistent disorder of initiating or maintaining sleep documented in this encounter [facility] Work Phone: [phone] note* Diagnosis Dysphagia, unspecified type Heartburn documented in this encounter [facility] Work Phone: [phone] note* Diagnosis Dysphagia, unspecified type Heartburn documented in this encounter [facility] Work Phone: [phone] note* Diagnosis Low TSH level- Primary Subclinical hyperthyroidism Thyrotoxicosis without mention of goiter or other cause, without mention of thyrotoxic crisis or storm documented in this encounter [facility] Work Phone: [phone] note* Diagnosis APRIL (obstructive sleep apnea)- Primary Obstructive sleep apnea (adult) (pediatric) Psychophysiological insomnia Persistent disorder of initiating or maintaining sleep Restless leg syndrome Restless legs syndrome (RLS) Inadequate sleep hygiene Other specific disorder of sleep of nonorganic origin Excessive daytime sleepiness Fatigue, unspecified type Sleep disturbance Unspecified sleep disturbance Morbid obesity ([facility]) Morbid obesity Medication management documented in this encounter [facility] Work Phone: Evaluation note* Diagnosis Generalized anxiety disorder- Primary [facility] Primary insomnia- Primary Persistent disorder of initiating or maintaining sleep APRIL (obstructive sleep apnea) Obstructive sleep apnea (adult) (pediatric) Inadequate sleep hygiene Other specific disorder of sleep of nonorganic origin Restless leg syndrome Restless legs syndrome (RLS) documented in this encounter [facility] Work Phone: Evaluation note* Diagnosis Vertigo- Primary Dizziness and giddiness Other migraine without status migrainosus, not intractable Otitis, left documented in this encounter [facility] Work Phone: Evaluation note* Diagnosis Chronic right shoulder pain- Primary Pain in joint, shoulder region Muscle spasm Spasm of muscle documented in this encounter [facility] Work Phone: History of Present illness Narrative* Patient is a 30 year female who CONSULTED AT [facility] today with complaints of * nasal congestion, nasal discharge, N * headache / sinus pain, Y * throat irritation, Y * cough, Y * fatigue, Y * muscle ache, Y * loss of sense of taste N * loss of sense of smell N * intermittent diarrhea, N * chills and fever.Y * N/V * HANSEN * DIZZY * FEVER * NO ABDOMINAL * Patient states that present condition started about [] days ago after being exposed to her ][] who recently tested positive for COVID. She denies shortness of breath, chest pain, palpitations, nor edema. She stated that she tried OTC cough and cold medications which afforded only slight relief of sy mptoms. She denies nausea, vomiting, abdominal pain, nor any other symptoms. [facility] Work Phone: History of Present illness Narrative* The patient is being seen for follow-up of a hand problem affecting the right hand. * Current Symptoms include pain, hand tobacco stripper hand weakness, swelling, tenderness and numbnessno finger bruising, no bruising of the hands and no wrist bruising. [facility] Work Phone: History of Present illness Narrative* The patient is being seen for follow-up of a hand problem affecting the right hand. * Current Symptoms include pain, hand tobacco stripper hand weakness, swelling, tenderness and numbnessno finger bruising, no bruising of the hands and no wrist bruising. [facility] Work Phone: history of Present illness Narrative* The patient is being seen for follow-up of a hand problem affecting the right hand. * Current Symptoms include pain, hand tobacco stripper hand weakness, swelling, tenderness and numbnessno finger bruising, no bruising of the hands and no wrist bruising. [facility] Work Phone: history of Present illness Narrative* The patient is being seen for follow-up of a hand problem affecting the right hand. * Current Symptoms include pain, hand tobacco stripper hand weakness, swelling, tenderness and numbnessno finger bruising, no bruising of the hands and no wrist bruising. [facility] Work Phone: history of Present illness Narrative* The patient is being seen for an initial evaluation of vertigo. Symptoms: dizziness, sensation of movement, spinning sensation and loss of balance, but no difficulty ambulating, no hearing loss, no tinnitus, no nausea and no vomiting. The patient is currently experiencing symptoms. Associated symptoms: headache * The patient presents with complaints of bilateral ear pain (R > L). [facility] Work Phone: history of Present illness Narrative* The patient is being seen for an initial evaluation of this episode of abdominal pain. * Symptoms: abdominal pain and nausea, but no vomiting and no diarrhea. [facility] Work Phone: history of Present illness Narrative* The patient is being seen for an initial evaluation of this episode of abdominal pain. * Symptoms: abdominal pain. Symptom Cluster Details: she reports the symptoms are unchanged. [facility] Work Phone: history of Present illness Narrative* The patient is being seen for an initial evaluation of this episode of abdominal pain. * Symptoms: abdominal pain. Symptom Cluster Details: she reports the symptoms are unchanged. [facility] Work Phone: history of Present illness Narrative* The patient is being seen for an initial evaluation of this episode of abdominal pain. * Symptoms: abdominal pain. Symptom Cluster Details: she reports the symptoms are unchanged. [facility] Work Phone: History of Present illness Narrative* The patient is being seen for follow-up of bipolar disorder. The patient reports doing poorly. * Interval symptoms: new onset of racing thoughts and new onset of depressed mood. * Associated symptoms: suicidal ideation. * JANNETH CUEVAS presents with complaints of suicidal thoughts. [facility] Work Phone: History of Present illness NarrativeSKAELA CUEVAS presents with complaints of sudden onset of constant episodes of moderate left anterior upper, left posterior upper, left anterior lower and left posterior lower leg pain, radiating to the left hip, left thigh, left lower leg and left foot. The symptoms resulted from a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
== END 2024-04-03 14:22 | disposition home or self-care (01) ==
PROVIDERS: Emergency Provider Emergency Medicine; Visit Provider Emergency Medicine
DX: R45.851 Suicidal ideations (principal); F31.9 Bipolar disorder, unspecified; F12.90 Cannabis use, unspecified, uncomplicated; F41.9 Anxiety disorder, unspecified; Z91.52 Personal history of nonsuicidal self-harm; Z79.899 Other long term (current) drug therapy; Z87.891 Personal history of nicotine dependence
CPT/HCPCS: 36415; 80048; 80307; 82077; 84703; 85025; 99285; A4216

== ENCOUNTER 2024-09-18 07:00 | Outpatient (RCR) | payer BC, SELFPAY ==
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
--- NOTE | 2024-09-04 09:39 | HP.PTDCSUM ---
Discharge Summary D/C summary: It has been my pleasure to treat BECK DE PAZ referred by TRENT SUTTON, with the diagnosis of Femoral Acetabular impingement, IT Band Synd, Glut Tendonitis for a total of 7 visit(s). Discharge Date: 09/04/24 Please see the following information for a summary of their discharge status. Subjective Subjective: Pt MRI scheduled for September 20 and pain management on September 12. She feels that her hips are getting stronger but the pain is not changing. She feels that she can do these exercises on her own until she sees pain managment/MRI Pain L hip pain: Pain Intensity (Out of 10): 8 L buttock pain: Pain Intensity (Out of 10): 8 Overall Improvement % Improvement: 50 Objective Objective/Function: Pt has increase strength but her pain remains the same Goals Goal 1:: I HEP Goal Progress: Goal Met Goal 2:: Decrease L hip pain by 50% Goal Progress: Goal Met Goal 3:: Be able to complete job duties with less pain with lifting and standing Goal Progress: Progressing Goal 4:: Increase L LE strength (at the time of the eval: LE MMT: R hip flex 9 and L 7.4 R knee ext 19.7 and L 15.4 R knee flex 8.4 and L 8.1 R hip abd 4/5 and L 4-/5 with pain R hip ext 4/5 and L 4-/5 with pain) Goal 5:: Increase L IT band flexibility Goal Progress: Goal Met Plan Plan: 2X/ week for 8 weeks for L IT band stretching, Foam rolling to L IT band and Glut, B hip and core strength, Glut strength, with HEP D/C Information Discharge Comments: DC PT and pt to see pain management and MRI d/c sentence: If there are questions or concerns regarding this patient's physical therapy, please feel free to call me at [phone]. Thank you for the referral of this patient. Sincerely, Lucille Murray, MPT Balance/Gait/Functional tests Balance/Special Test Scores Lower Extremity Functional Score: 24 Improvement % Improvement: 50
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
== END 2024-09-18 19:00 | disposition home or self-care (01) ==
LOC: PT 07:00
DX: M25.859 Other specified joint disorders, unspecified hip (principal); M76.32 Iliotibial band syndrome, left leg; M76.02 Gluteal tendinitis, left hip; M54.12 Radiculopathy, cervical region; M75.40 Impingement syndrome of unspecified shoulder; M25.519 Pain in unspecified shoulder
CPT/HCPCS: 97110; 97140; 97161; 97162

== ENCOUNTER 2024-10-11 10:34 | Emergency (ER) | payer BC, SELFPAY ==
[2024-10-11 10:35] VITALS: BP 132/71; PULSE 67; RESP 14; TEMP 36.7; O2SAT 98; BMI 47.2
--- NOTE | 2024-10-11 11:48 | EX.ED.DYSGE1 ---
HPI History of Present Illness Chief Complaint: Syncope Informant: patient Narrative Narrative: Presents for evaluation of syncopal episode occurring yesterday at 11:30 AM while at work. She has been having a lot of lightheaded symptoms yesterday and today. Today due to symptoms got more short of breath. History of anxiety. No cough. States chronic loose nonbloody stools she does not count her me times a day. She has not discussed this with her primary doctor. She has had issues in the past being worked up for POTS with discussion with POTS however no testing. She had issues with her neck and that it has been her primary issue. She states bulging disc. She is nauseated. No vomiting. Decreased appetite. No urinary symptoms. History of anemia on iron. Denies bloody stools. Prior similar symptoms: Yes PFSH PFSH Medical History Bulging disc Anxiety Bipolar 1 disorder Depression Chronic headaches Home Medications ?Medication ?Instructions ?Recorded ?Last Taken ?Type clonazepam 1 mg tablet 1 mg PO Q12H PRN anxiety 05/04/23 Unknown History trazodone 100 mg tablet 100 mg PO QHS 05/04/23 Unknown History venlafaxine 75 mg capsule,extended 75 mg PO 05/04/23 Unknown History release 24 hr ferrous sulfate 325 mg (65 mg 325 mg PO QDAY 09/05/24 Unknown History iron) tablet (FeroSul) lamotrigine 150 mg tablet 150 mg PO QDAY 09/05/24 Unknown History pregabalin 200 mg capsule 200 mg PO TID 10/10/24 Unknown History tizanidine 4 mg tablet 4 - 6 mg PO Q8 PRN muscle spasm 10/11/24 Unknown History Allergy/AdvReac Type Severity Reaction Status Date / Time vancomycin Allergy Hives Verified 10/11/24 10:36 amoxicillin AdvReac Other Verified 10/11/24 10:36 azithromycin (From z pack) AdvReac Hives Verified 10/11/24 10:36 erythromycin base AdvReac Vomiting Verified 10/11/24 10:36 Family History Other Cancer Diabetes Heart disease Surgical History History of carpal tunnel release Social History Smoking Status: Former smoker ROS ROS ED Constitutional Constitutional ED: Denies chills, fever(s) or sweats ENT ENT ED: Denies sore throat Cardiovascular Cardiovascular: Reports other Details: Syncope, lightheaded symptoms ; Denies chest pain, leg edema, palpitations or racing heartbeat Respiratory/Chest Respiratory/Chest: Denies cough, dyspnea or dyspnea on exertion Gastrointestinal Gastrointestinal: Reports diarrhea and nausea; Denies abdominal pain or vomiting Genitourinary Genitourinary ED: Denies dysuria, hematuria or urinary frequency Musculoskeletal Musculoskeletal: Denies back pain, extremity pain or neck pain Integumentary Denies rash or wounds Neurologic Neurologic: Denies headache(s), paresthesias or weakness EXAM Physical Exam Const Vital Signs: 10/11/24 10:35 10/11/24 10:46 10/11/24 12:35 Temperature 98.1 F Temperature Source Temporal Pulse Rate 67 85 Pulse Rate [Lying] Pulse Rate [Sitting (for 1 minute prior to obtaining)] Pulse Rate [Standing (for 1 minute prior to obtaining)] Respiratory Rate 14 Respiratory Effort Short of Breath Respiratory Pattern Tachypnea Blood Pressure 132/71 H 140/102 H Blood Pressure [Lying] Blood Pressure [Sitting (for 1 minute prior to obtaining)] Blood Pressure [Standing (for 1 minute prior to obtaining)] Blood Pressure Mean 91 114 Blood Pressure Mean [Lying] Blood Pressure Mean [Sitting (for 1 minute prior to obtaining)] Blood Pressure Mean [Standing (for 1 minute prior to obtaining)] Pulse Ox 98 Oxygen Delivery Method Room Air 10/11/24 12:52 10/11/24 13:41 Temperature 98 F Temperature Source Pulse Rate 85 Pulse Rate [Lying] 66 Pulse Rate [Sitting (for 1 minute prior to obtaining)] 70 Pulse Rate [Standing (for 1 minute prior to obtaining)] 82 Respiratory Rate 18 Respiratory Effort Respiratory Pattern Blood Pressure 148/82 H Blood Pressure [Lying] 148/84 H Blood Pressure [Sitting (for 1 minute prior to obtaining)] 140/83 H Blood Pressure [Standing (for 1 minute prior to obtaining)] 136/80 H Blood Pressure Mean 104 Blood Pressure Mean [Lying] 105 Blood Pressure Mean [Sitting (for 1 minute prior to obtaining)] 102 Blood Pressure Mean [Standing (for 1 minute prior to obtaining)] 98 Pulse Ox 99 Oxygen Delivery Method Positive well nourished and well developed General Appearance ED: well developed and NAD; Negative for pallor HEENT Reports moist mucous membranes normocephalic and atraumatic Eyes General Eye ED: Yes normal appearance of both eyes; Negative for scleral icterus Neck full ROM Chest Wall Chest: Negative for tenderness Resp normal respiratory effort and normal air movement Effort and Inspection: symmetric chest movement; Negative for respiratory distress Cardio regular rate, regular rhythm and no murmurs Peripheral Pulses: pulses 2+ throughout GI normal to inspection, nondistended, normoactive bowel sounds and non-tender Palpation: Negative for guarding or rebound tenderness present Extremity normal to inspection General Extremety ED: Negative for edema or tenderness General Extremity: Negative for edema Neuro oriented x3 and no sensory deficits noted Sensorium / Orientation: awake and alert Skin no rashes or lesions noted and no wounds General Skin Exam: Negative for pallor MDM MDM MDM Narrative Medical decision making narrative: Interventions / MDM: Differential diagnosis: Syncope, orthostasis, POTS Diagnosis considered but do not suspect: Electrolyte abnormalities, anemia however labs are normal. My EKG interpretation: Sinus rate of 70, no ST changes. QTc 432. Imaging independently reviewed and interpreted by myself: N/A External documents reviewed: N/A Test considered but not ordered:N/A ED course: Vital stable nontoxic. Reports syncopal episode yesterday multiple nursing episodes. Chronic loose stools. No abdominal pain on exam. EKG normal. Will check labs, will give fluids and Zofran. She request something for anxiety. Hydroxyzine ordered. Orthostatic vital signs ordered. Patient orthostatic positive by heart rate from sitting to standing. Blood pressure remained stable. Labs normal hemoglobin 13.9, electrolytes were normal. She ambulated reporting some dizziness. Neurovascular intact vital stable. Encouraged her to continue oral fluids at home. She has had recurrent symptoms. Negative workup. Discussed follow-up with her PCP for further workup. Work note provided. All questions were answered. Re-evaluation: stable Disposition discussed with patient/family/significant other: Patient Case discussed with consulting clinician: N/A This note was generated with [employer] dictation software. It may contain incorrect words, spelling, and punctuation that were not noted in checking the note before signing. Lab Data Attestation: I reviewed the patient's lab results. Labs: Laboratory Results - last 24 hr 10/11/24 12:00 WBC 9.0 RBC 4.77 Hgb 13.9 Hct 41.3 MCV 86.6 MCH 29.1 MCHC 33.7 RDW Std Deviation 38.0 RDW Coeff of Lilian 12.0 Plt Count 320 MPV 9.5 Immature Gran % (Auto) 0.400 Neut % (Auto) 68.7 Lymph % (Auto) 23.7 Bath % (Auto) 5.1 Eos % (Auto) 1.5 Baso % (Auto) 0.6 Absolute Neuts (auto) 6.2 Absolute Lymphs (auto) 2.12 Nucleated RBC % 0 Sodium 139 Potassium 3.7 Chloride 105 Carbon Dioxide 17.2 L Anion Gap 17 H BUN 11 Creatinine 0.76 Estim Creat Clear Calc 126.62 Est GFR (MDRD) Non-Af 105 BUN/Creatinine Ratio 13.9 Glucose 83 Calcium 9.5 Discharge Plan Triage Chief Complaint: Syncope ED Provider: Fran Olmos Dx/Rx/DC Orders Clinical Impression: Syncope, Orthostatic lightheadedness, Anxiety Instructions: Dizziness Fainting Causes Prescriptions: No Action clonazepam 1 mg tablet 1 mg PO Q12H PRN (Reason: anxiety) Patient Comments: TAKE 1 TABLET BY MOUTH 2 TIMES A DAY NEEDED for panic attacks venlafaxine 75 mg capsule,extended release 24hr 75 mg PO Patient Comments: TAKE 1 CAPSULE BY MOUTH EVERY DAY WITH FOOD trazodone 100 mg tablet 100 mg PO QHS Patient Comments: TAKE 1 TABLET BY MOUTH AT BEDTIME NEEDED for insomnia lamotrigine 150 mg tablet 150 mg PO QDAY ferrous sulfate [FeroSul] 325 mg (65 mg iron) tablet 325 mg PO QDAY pregabalin 200 mg capsule 200 mg PO TID tizanidine 4 mg tablet 4 - 6 mg PO Q8 PRN (Reason: muscle spasm) Stand Alone Forms: ED Work / School Excuse Primary Care Provider: Anay Rodriguez Referrals: Anay Rodriguez DO [Primary Care Provider] - 3-5 Days Activity Restrictions/Additional Instructions: EKG normal. Labs were stable. Hemoglobin 13.9. You are given fluids in the ED. Continue oral fluids for hydration. Follow-up with your primary care team for further testing. Print Language: Italian Disposition Disposition: Home, Self Care Discharge Date/Time: 10/11/24 13:48
[2024-10-11] MEDS: Ondansetron 4 MG/2 ML Vial IV (11:59)
[2024-10-11] MEDS: hydrOXYzine PAM 25 MG Capsule 50 MG PO (11:59)
[2024-10-11] MEDS: 0.9% Normal Saline (1000mL) 1,000 ML 1000 ML IV (11:59)
[2024-10-11 12:09] LABS: Absolute Lymphocyte Count 2.12 X10^3/uL (0.83-4.51); Absolute Neutrophil Count 6.2 X10^3/uL (2.0-7.7); Basophil# 0.05 X10^3/uL; Basophil% 0.6 % (0-1); Eosinophil# 0.13 X10^3/uL; Eosinophils% 1.5 % (0-5); Hematocrit 41.3 % (37-47); Hemoglobin 13.9 g/dL (12.0-15.0); Lymphocyte # 2.12 X10^3/ul (0.83-4.51); Lymphocyte % 23.7 % (19-41); Mean Corp Hgb Conc 33.7 g/dL (32-36); Mean Corpuscular Hgb 29.1 pg (27.0-32.0); Mean Corpuscular Volume 86.6 fL (81-99); Mean Platelet Vol. 9.5 fl (6.2-12.0); Monocyte# 0.46 X10^3/uL; Monocyte% 5.1 % (0-10); NRBC Flagged by Analyzer 0 % (0-5); Neutrophil # 6.15 X10^3/uL (2.7-7.7); Neutrophil % 68.7 % (47-70); Platelet Count 320 K/mm3 (150-450); Red Blood Count 4.77 M/mm3 (4.2-5.4)
[2024-10-11 12:35] VITALS: BP 140/102; PULSE 85
[2024-10-11 12:40] LABS: Anion Gap 17 (5-15); BUN 11 mg/dL (4-19); BUN/Creat Ratio 13.9 RATIO (10-20); Calcium,Total 9.5 mg/dL (7.6-11.0); Carbon Dioxide 17.2 mmol/L (21.0-32.0); Chloride 105 mmol/L (98-108); Creatinine, Serum 0.76 mg/dL (0.70-1.20); EST Glomerular Filtration Rate 105 (>60); Estimated Creatinine Clearance 126.62 ml/min (50-250); Glucose 83 mg/dL (70-99); Potassium 3.7 mmol/L (3.3-5.1); Sodium Level 139 mmol/L (133-145)
[2024-10-11 12:52] VITALS: BP 136/80; BP 140/83; BP 148/84; PULSE 66; PULSE 70; PULSE 82
[2024-10-11 13:13] VITALS: O2SAT 100
[2024-10-11 13:41] VITALS: BP 148/82; PULSE 85; RESP 18; TEMP 36.6; O2SAT 99
== END 2024-10-11 13:48 | disposition home or self-care (01) ==
PROVIDERS: Emergency Provider Emergency Medicine; PCP Family Medicine; Visit Provider Emergency Medicine
DX: R55 Syncope and collapse (principal); F31.9 Bipolar disorder, unspecified; F41.9 Anxiety disorder, unspecified; D64.9 Anemia, unspecified; R19.5 Other fecal abnormalities; Z79.899 Other long term (current) drug therapy; Z87.891 Personal history of nicotine dependence
CPT/HCPCS: 80048; 85025; 93005; 96361; 96374; 99284; A4216; J2405